=== PATIENT | female | born 1940 | race Caucasian/White ===

== ENCOUNTER 2019-11-14 19:46 | Inpatient (IN) | payer MEDICARE, OTHER ==
[2019-11-14] MEDS ORDERED: SODIUM CHLORIDE 0.9% 1,000 ML IV STA (20:24)
--- NOTE | 2019-11-14 20:47 | ED ---
General Adult HPI - General Source: patient, EMS, RN notes reviewed Mode of arrival: EMS <Ernesto Deluca P - Last Filed: 11/14/19 21:39> <Jeny Berkowitz P - Last Filed: 11/16/19 04:45> - General Chief complaint: Recheck/Abnormal Lab/Rx Stated complaint: abnormal labs Time Seen by Provider: 11/14/19 19:55 - History of Present Illness Initial comments: 79-year-old female with a past medical history of diabetes, hypertension, polio presents to the emergency department for a chief complaint of abnormal labs. Patient states that she was called by primary care and told to call the ambulance due to abnormal labs. Patient states she has had cellulitis and swelling of her leg and was on Lasix about 2 weeks ago. States she's had this for one week and then was told to stop taking this. States she has not taken this in a week. States that her kidney function has been decreasing as it is normally around a GFR of 43. Patient states today she had repeat labs performed and she was told she had high potassium. Patient has not had this in the past. She has no complaints at this time.Patient has no other complaints at this time including shortness of breath, chest pain, abdominal pain, nausea or vomiting, headache, or visual changes. (Ernesto Deluca) - Related Data Home Medications Medication Instructions Recorded Confirmed Aspirin 81 mg PO DAILY 06/25/15 11/14/19 Fish Oil/Dha/Epa [Fish Oil 1,200 1 cap PO DAILY 06/25/15 11/14/19 mg Fish Oil] Indapamide 5 mg PO DAILY 06/25/15 11/14/19 Levothyroxine Sodium [Synthroid] 125 mcg PO DAILY 06/25/15 11/14/19 Lisinopril [Prinivil] 10 mg PO DAILY 06/25/15 11/14/19 Potassium Chloride [K-Tab ER] 10 meq PO DAILY 06/25/15 11/14/19 glipiZIDE XL [Glucotrol XL] 5 mg PO AC-BRKFST 06/25/15 11/14/19 Cholecalciferol [Vitamin D3 (25 1,000 unit PO DAILY 06/23/16 11/14/19 Mcg = 1000 Iu)] Allopurinol [Zyloprim] 100 mg PO DAILY 11/14/19 11/14/19 Sulfamethox-Tmp 800-160Mg [Bactrim 1 tab PO Q12HR 11/15/19 11/15/19 DS 800-160 mg] Allergies Allergy/AdvReac Type Severity Reaction Status Date / Time No Known Allergies Allergy Verified 11/14/19 23:14 Review of Systems ROS Other: All systems not noted in ROS Statement are negative. <Ernesto Deluca P - Last Filed: 11/14/19 21:39> ROS Other: All systems not noted in ROS Statement are negative. <Jeny Berkowitz P - Last Filed: 11/16/19 04:45> ROS Statement: Those systems with pertinent positive or pertinent negative responses have been documented in the HPI. Past Medical History Past Medical History: Diabetes Mellitus, Hypertension, Thyroid Disorder Additional Past Medical History / Comment(s): POLIO AT AGE 3 with R leg alittle shorter and smaller, NIDDM, hypothyroid, L hip pain at times. History of Any Multi-Drug Resistant Organisms: None Reported Past Surgical History: No Surgical Hx Reported Additional Past Surgical History / Comment(s): RT/LT CATARACT removal. Additional Past Anesthesia/Blood Transfusion Reaction / Comment(s): NEVER HAS HAD GENERAL ANESTHESIA Past Psychological History: No Psychological Hx Reported Smoking Status: Former smoker Past Alcohol Use History: None Reported Past Drug Use History: None Reported - Past Family History Father Family Medical History: Coronary Artery Disease (CAD), Myocardial Infarction ([place]) Additional Family Medical History / Comment(s): Father at the age of 63 yrs from a [place]. He had alot of family members with CAD. Mother Family Medical History: No Reported History Additional Family Medical History / Comment(s): Mother lived to be 90.5 yrs old. <Ernesto Deluca P - Last Filed: 11/14/19 21:39> General Exam General appearance: alert, in no apparent distress Head exam: Present: atraumatic, normocephalic, normal inspection Eye exam: Present: normal appearance, PERRL, EOMI. Absent: scleral icterus, conjunctival injection ENT exam: Present: normal exam, mucous membranes moist Neck exam: Present: normal inspection, full ROM. Absent: tenderness, meningismus, lymphadenopathy Respiratory exam: Present: normal lung sounds bilaterally. Absent: respiratory distress, wheezes, rales, rhonchi, stridor Cardiovascular Exam: Present: regular rate, normal rhythm, normal heart sounds. Absent: bradycardia, tachycardia, irregular rhythm GI/Abdominal exam: Present: soft, normal bowel sounds. Absent: distended, tenderness, guarding, rebound, rigid <Ernesto Deluca - Last Filed: 11/14/19 21:39> Course Vital Signs 11/14/19 11/14/19 19:53 20:52 Temperature 98 F Pulse Rate 95 71 Respiratory 18 18 Rate Blood Pressure 189/84 164/60 O2 Sat by Pulse 98 97 Oximetry EKG Findings - EKG Comments: EKG Findings:: Normal sinus rhythm, left bundle branch block, ventricular rate 84, CO interval 176, QTc 467 <Ernesto Deluca P - Last Filed: 11/14/19 21:39> Medical Decision Making - Lab Data Result diagrams: 11/14/19 20:45 11/14/19 20:45 <Ernesto Deluca - Last Filed: 11/14/19 21:39> - Lab Data Result diagrams: 11/15/19 07:49 11/15/19 17:18 <Jeny Berkowitz P - Last Filed: 11/16/19 04:45> - Medical Decision Making Potassium is elevated at 6.1. BUN to creatinine ratio is noted to be 24, some degree of prerenal involvement. EKG shows a left bundle-branch block which is likely chronic patient does not have any chest pain or shortness of breath. However I do not have a previous EKG to compare this to. Patient was given insulin with dextrose, sodium bicarb, calcium gluconate, and albuterol. She was also given fluids. At this time we recommend fruther monitoring in the hospital and repeating her potassium in the morning. (Ernesto Deluca) I personally saw and evaluated the patient and agree with the [facility]'s plan for admission, acute treatment for hyperkalemia and repeat labs in the morning (Jeny Berkowitz) - Lab Data Lab Results 11/14/19 11/14/19 Range/Units 20:45 20:45 WBC 10.2 (3.8-10.6) k/uL RBC 3.96 (3.80-5.40) m/uL Hgb 12.0 (11.4-16.0) gm/dL Hct 36.8 (34.0-46.0) % MCV 92.9 (80.0-100.0) fL MCH 30.4 (25.0-35.0) pg MCHC 32.8 (31.0-37.0) g/dL RDW 14.3 (11.5-15.5) % Plt Count 215 (150-450) k/uL Neutrophils % 85 % Lymphocytes % 8 % Monocytes % 5 % Eosinophils % 1 % Basophils % 0 % Neutrophils # 8.7 H (1.3-7.7) k/uL Lymphocytes # 0.8 L (1.0-4.8) k/uL Monocytes # 0.5 (0-1.0) k/uL Eosinophils # 0.1 (0-0.7) k/uL Basophils # 0.0 (0-0.2) k/uL Sodium 138 (137-145) mmol/L Potassium 6.1 H* (3.5-5.1) mmol/L Chloride 106 (98-107) mmol/L Carbon Dioxide 21 L (22-30) mmol/L Anion Gap 11 mmol/L BUN 41 H (7-17) mg/dL Creatinine 1.70 H (0.52-1.04) mg/dL Est GFR (CKD-EPI)AfAm 32 (>60 ml/min/1.73 sqM) Est GFR (CKD-EPI)NonAf 28 (>60 ml/min/1.73 sqM) Glucose 140 H (74-99) mg/dL Calcium 10.0 (8.4-10.2) mg/dL Magnesium 1.8 (1.6-2.3) mg/dL Total Bilirubin 0.4 (0.2-1.3) mg/dL AST 35 (14-36) U/L ALT 27 (4-34) U/L Alkaline Phosphatase 70 (38-126) U/L Total Protein 7.7 (6.3-8.2) g/dL Albumin 4.6 (3.5-5.0) g/dL Disposition Is patient prescribed a controlled substance at d/c from ED?: No Time of Disposition: 21:40 <Ernesto Deluca P - Last Filed: 11/14/19 21:39> <Jeny Berkowitz - Last Filed: 11/16/19 04:45> Clinical Impression: Hyperkalemia, Dehydration Disposition: ADMITTED IP TO THIS HOSP Condition: Fair
[2019-11-14 20:51] LABS: Basophils % (A) 0 %; Eosinophils # (A) 0.1 k/uL (0-0.7); Eosinophils % (A) 1 %; HCT 36.8 % (34.0-46.0); Lymphocytes # (A) 0.8 k/uL (1.0-4.8); Lymphocytes % (A) 8 %; MCH 30.4 pg (25.0-35.0); MCHC 32.8 g/dL (31.0-37.0); MCV 92.9 fL (80.0-100.0); Mean Platelet Volume 7.2; Monocytes # (A) 0.5 k/uL (0-1.0); Monocytes % (A) 5 %; Neutrophils # (A) 8.7 k/uL (1.3-7.7); Neutrophils % (A) 85 %; Platelet Count 215 k/uL (150-450); RBC 3.96 m/uL (3.80-5.40); RDW 14.3 % (11.5-15.5); WBC 10.2 k/uL (3.8-10.6)
[2019-11-14 21:05] LABS: Albumin 4.6 g/dL (3.5-5.0); Magnesium 1.8 mg/dL (1.6-2.3); Total Bilirubin 0.4 mg/dL (0.2-1.3); Total Protein 7.7 g/dL (6.3-8.2)
[2019-11-14 21:07] LABS: Potassium 6.1 mmol/L (3.5-5.1)
[2019-11-14] MEDS ORDERED: ALBUTEROL NEB (CONC) 2.5 MG/0.5 ML INHALATION ONE (21:17)
[2019-11-14] MEDS ORDERED: CALCIUM GLUCONATE 1 GM in SODIUM CHLORIDE 0.9% 100 ML IVPB ONE (21:17)
[2019-11-14] MEDS ORDERED: INSULIN REGULAR 100 UNIT/ML VIAL IV ONE (21:17)
[2019-11-14] MEDS ORDERED: DEXTROSE 10 % IN WATER 250 ML IV ONE (21:17)
[2019-11-14] MEDS ORDERED: SODIUM BICARB 8.4% 50 ML SYR (1 MEQ/ML) IV ONE (21:17)
[2019-11-14] MEDS ORDERED: NALOXONE 0.4 MG/ML 1 ML VIAL IV PRN (21:26)
[2019-11-14] MEDS: SODIUM CHLORIDE 0.9% 1,000 ML IV SCH (21:53)
[2019-11-14 22:16] LABS: Glucose,Whole Blood 238 mg/dL (75-99)
[2019-11-15] MEDS ORDERED: ACETAMINOPHEN TAB 325 MG TAB PO PRN (00:55)
[2019-11-15] MEDS: LEVOTHYROXINE 125 MCG TAB PO SCH (06:14)
[2019-11-15 07:06] LABS: Glucose,Whole Blood 116 mg/dL (75-99)
[2019-11-15 08:30] LABS: Basophils % (A) 0 %; Eosinophils # (A) 0.1 k/uL (0-0.7); Eosinophils % (A) 1 %; HCT 33.7 % (34.0-46.0); HGB 11.2 gm/dL (11.4-16.0); Lymphocytes # (A) 0.9 k/uL (1.0-4.8); Lymphocytes % (A) 12 %; MCH 31.2 pg (25.0-35.0); MCHC 33.2 g/dL (31.0-37.0); Mean Platelet Volume 7.3; Monocytes # (A) 0.5 k/uL (0-1.0); Monocytes % (A) 6 %; Neutrophils # (A) 5.9 k/uL (1.3-7.7); Neutrophils % (A) 79 %; Platelet Count 191 k/uL (150-450); RBC 3.58 m/uL (3.80-5.40); RDW 14.3 % (11.5-15.5); WBC 7.5 k/uL (3.8-10.6)
[2019-11-15 08:51] LABS: Albumin 4.1 g/dL (3.5-5.0); Calcium 9.6 mg/dL (8.4-10.2); Magnesium 1.6 mg/dL (1.6-2.3); Potassium 5.5 mmol/L (3.5-5.1); Total Bilirubin 0.5 mg/dL (0.2-1.3); Total Protein 6.9 g/dL (6.3-8.2)
[2019-11-15] MEDS ORDERED: LISINOPRIL 10 MG TAB PO SCH (09:00)
[2019-11-15] MEDS: INSULIN ASPART (NovoLOG) 100 UNIT/ML VIAL SQ SCH ×4 (09:19→20:37)
[2019-11-15] MEDS: CHOLECALCIFEROL 1,000 UNIT TAB PO SCH (09:32)
[2019-11-15] MEDS: ALLOPURINOL 100 MG TAB PO SCH (09:32)
[2019-11-15] MEDS: ASPIRIN 81 MG PO SCH (09:32)
[2019-11-15] MEDS: HYDROCHLOROTHIAZIDE 25 MG TAB PO SCH (09:32)
[2019-11-15] MEDS: SODIUM CHLORIDE 0.9% 1,000 ML IV SCH (09:33)
[2019-11-15] MEDS ORDERED: SODIUM POLYSTYRENE SULFONATE 15 GM/60 ML BOTTLE PO STA (11:35)
[2019-11-15] MEDS ORDERED: Magnesium Replacement Protocol 1 EACH MISC MISCELLANE PRN (11:36)
[2019-11-15 11:44] LABS: Glucose,Whole Blood 125 mg/dL (75-99)
[2019-11-15] MEDS: MAGNESIUM SULFATE-D5W PMX 1 GM in DEXTROSE/WATER 1 100ML.BAG IVPB SCH ×2 (13:41→16:10)
--- NOTE | 2019-11-15 16:42 | XR ---
EXAMINATION TYPE: XR chest 1V portable DATE OF EXAM: 11/15/2019 Comparison: 09/21/2010 Clinical History: 79-year-old female CHF Findings: Heart borderline enlarged. Lordotic positioning limits exam. Mild interstitial prominence without con solidation or pleural effusion. Impression: 1. Borderline heart size. Lordotic positioning limits assessment. 2. Mild interstitial prominence could affect mild pulmonary vascular congestion.
[2019-11-15 16:45] LABS: Glucose,Whole Blood 118 mg/dL (75-99)
[2019-11-15 17:58] LABS: Albumin 4.5 g/dL (3.5-5.0); Calcium 9.8 mg/dL (8.4-10.2); Potassium 5.5 mmol/L (3.5-5.1); Total Bilirubin 0.5 mg/dL (0.2-1.3); Total Protein 7.3 g/dL (6.3-8.2)
--- NOTE | 2019-11-15 18:56 | HP ---
HISTORY AND PHYSICAL CHIEF COMPLAINT: Abnormal labs. HISTORY OF PRESENT ILLNESS: This 79-year-old woman with a past medical history of multiple medical problems being followed by Dr. Hays in the outpatient presented to [facility] with complaints of abnormal labs. The patient apparently had an ulcer on the right lower leg, initially started as blister. The patient was treated with oral antibiotics. The patient also had also had swelling of the leg. The patient was on Lasix about 2 weeks ago. Because of lack of improvement the patient was closely monitored. Patient had outpatient labs. Subsequently, patient was asked to go to [facility] Emergency room for continued labs. Potassium 6.1, creatinine is 1.70. The baseline creatinine was found to be 0.9 indicating acute renal failure. The patient was given insulin ( ) patient admitted for further evaluation and treatment. Repeat potassium was 5.4. Repeat creatinine was 1.4. There is no history of fever, rigors. No diabetes. No headache, loss of consciousness, chest pain, palpitations, hematochezia or melena. PAST HISTORY: Diabetes mellitus, hypertension, hypothyroidism, history of polio. HOME MEDICATIONS: 1. Bactrim DS 1 p.o. b.i.d. 2. Glucotrol XL 5 mg at breakfast. 3. K-Tab ER 10 mg p.o. 4. Prinivil 10 mg. 5. Synthroid 125 mcg p.o. daily. 6. Indapamide 5 mg p.o. 7. Fish oil 1 p.o. 8. Vitamin D3 1000 daily. 9. Aspirin 81 mg. 10.Zyloprim 100 mg p.o. daily. ALLERGIES: None. FAMILY HISTORY: No history of significant cardiovascular illness in the family. SOCIAL HISTORY: History of smoking. No history of current smoking or alcohol intake. REVIEW OF SYSTEMS: ENT: No history of diminished hearing or vision. CARDIOVASCULAR: No angina or palpitations. RESPIRATORY: As mentioned earlier. GI: No nausea, vomiting, or diarrhea. : No dysuria. NERVOUS: No numbness or weakness. ALLERGY/IMMUNOLOGY: No asthma or hayfever. MUSCULOSKELETAL: As mentioned earlier. HEMATOLOGY/ONCOLOGY: Negative. ENDOCRINE: Hypothyroidism. SKIN: Negative. CONSTITUTIONAL: Negative. PSYCHIATRY As mentioned earlier. PHYSICAL EXAMINATION: Alert and oriented x3. Pulse 82, blood pressure 140/82, respirations 16, temperature 98.1, pulse ox 98% on room air. HEENT: Conjunctivae normal. Oral mucosa moist. NECK: No jugular venous distention. No lymph node enlargement. CARDIOVASCULAR: S1, S2. RESPIRATORY: Diminished breath sounds at the bases. A few scattered rhonchi and crackles. ABDOMEN: Soft, nontender. LEGS: Right leg swelling present. Right leg ulceration also present on the middle part of the leg. NERVOUS SYSTEM: Higher functions mentioned earlier. Moves all four limbs. No focal deficits. LYMPHATICS: No lymph node in neck or axilla. SKIN: As mentioned earlier. JOINTS: No active deforming arthropathy. LABS: WBC 7.2, hemoglobin 11.2, sodium 130, potassium 5.2, creatinine is 1.4. ASSESSMENT: 1. Acute renal failure and acute hyperkalemia, possibly prerenal renal failure, acute tubular necrosis. 2. Anemia, normocytic anemia of chronic disease. 3. Right lower extremity ulcer. 4. History of diabetes type 2. 5. Hypertension. 6. Hypothyroidism. 7. History of polio at the age of 3. 8. Left hip pain. 9. History of degenerative joint disease. 10.Remote history of nicotine dependence. 11.Obesity with body mass of 30.1. 12.FULL CODE. RECOMMENDATIONS AND DISCUSSION: This 79-year-old woman who presented with multiple complex medical issues, we will monitor the patient closely, continue the current medication, continue symptomatic treatment. Will initiate insulin glucose regimen as mentioned earlier. We will recommend Kayexalate. Hold potassium. Hold lisinopril. Otherwise, continue to monitor. Cautious IV fluids. Will consult Infectious Disease and continue to monitor. Overall prognosis guarded because of multiple complex medical issues. See orders for details. MMODL / IJN: [id number] /
[2019-11-15 19:24] LABS: Appearance,Urine Clear (Clear); Bilirubin,Urine Negative (Negative); Blood,Urine Negative (Negative); Color,Urine Colorless; Glucose,Urine (UA) Negative (Negative); Ketones,Urine Negative (Negative); Leukocyte Esterase,Urine Negative (Negative); Nitrite,Urine Negative (Negative); Protein,Urine Negative (Negative); Specific Gravity,Urine 1.005 (1.001-1.035); Urobilinogen,Urine <2.0 mg/dL (<2.0)
[2019-11-15 20:25] LABS: Glucose,Whole Blood 169 mg/dL (75-99)
--- NOTE | 2019-11-15 21:56 | US ---
EXAMINATION TYPE: US venous doppler duplex LE RT DATE OF EXAM: 11/15/2019 11:59 AM COMPARISON: NONE CLINICAL HISTORY: chronic cellulits. . Draining blister right lower leg, edema SIDE PERFORMED: Right TECHNIQUE: The lower extremity deep venous system is examined utilizing real time linear array sonog jameson with graded compression, doppler sonography and color-flow sonography. VESSELS IMAGED: External Iliac Vein (EIV) Common Femoral Vein Deep Femoral Vein Greater Saphenous Vein * Femoral Vein Popliteal Vein Small Saphenous Vein * Proximal Calf Veins (* superficial vessels) Exam somewhat difficult due to edema Right Leg: Negative for DVT IMPRESSION: There is no evidence of deep venous thrombosis in the right leg.
[2019-11-16] MEDS: SODIUM CHLORIDE 0.9% 1,000 ML IV SCH ×2 (00:35→12:59)
[2019-11-16] MEDS: LEVOTHYROXINE 125 MCG TAB PO SCH (05:33)
[2019-11-16 07:04] LABS: Glucose,Whole Blood 104 mg/dL (75-99)
[2019-11-16 08:01] LABS: Basophils % (A) 0 %; Eosinophils # (A) 0.1 k/uL (0-0.7); Eosinophils % (A) 2 %; HCT 34.2 % (34.0-46.0); HGB 10.9 gm/dL (11.4-16.0); Lymphocytes % (A) 13 %; MCH 30.1 pg (25.0-35.0); MCHC 31.9 g/dL (31.0-37.0); MCV 94.5 fL (80.0-100.0); Mean Platelet Volume 7.3; Monocytes # (A) 0.5 k/uL (0-1.0); Monocytes % (A) 6 %; Neutrophils % (A) 77 %; Platelet Count 180 k/uL (150-450); RBC 3.62 m/uL (3.80-5.40); RDW 14.5 % (11.5-15.5); WBC 7.8 k/uL (3.8-10.6)
[2019-11-16] MEDS: INSULIN ASPART (NovoLOG) 100 UNIT/ML VIAL SQ SCH ×4 (08:31→20:53)
[2019-11-16 08:35] LABS: Calcium 9.5 mg/dL (8.4-10.2); Potassium 5.3 mmol/L (3.5-5.1)
[2019-11-16] MEDS: ASPIRIN 81 MG PO SCH (09:22)
[2019-11-16] MEDS: CHOLECALCIFEROL 1,000 UNIT TAB PO SCH (09:22)
[2019-11-16] MEDS: ALLOPURINOL 100 MG TAB PO SCH (09:22)
[2019-11-16] MEDS: HYDROCHLOROTHIAZIDE 25 MG TAB PO SCH (09:22)
[2019-11-16 11:31] LABS: Glucose,Whole Blood 88 mg/dL (75-99)
--- NOTE | 2019-11-16 13:39 | P.CONS ---
History of Present Illness - Reason for Consult Consult date: 11/16/19 right lower extremity wound and cellulitis Requesting physician: Angelica Last - Chief Complaint abnormal labs at PCP office and right leg wound few days - History of Present Illness Patient is 79 year female who has been brought into the ER after the primary care told her that she did have abnormal labs and that she needs to go to the hospital apparently the patient had did have problem with the swelling in her legs on the right leg the patient did develop a blister more than a week ago they subsequently ruptured with subsequent formation of a superficial laceration the patient did have mild aching pain to the area about 2-3 out of 10 and no radiation patient mentioning nose difficulty and redness and the drainage was mostly clear and denies having any fever or any chills patient has been treated with Bactrim DS in outpatient setting the patient to did went for a follow-up and the patient apparently did have blood work done subsequently receiving a call that she did have elevated progression and can function was elevated to present to the hospital for admission, on admission the patient did have blood draw she was noticed a potassium of 6.1 with a creatinine 1.70, the patient white count has been normal and she has not been running any fever and infection disease was consulted for possible right lower extremity cellulitis for local wound care and need for antibiotic therapy currently not on any antibiotic at this point Review of Systems Positive point has been mentioned in the HPI rest of the systems are negative Past Medical History Past Medical History: Diabetes Mellitus, Hypertension, Thyroid Disorder Additional Past Medical History / Comment(s): POLIO AT AGE 3 with R leg alittle shorter and smaller, NIDDM, hypothyroid, L hip pain at times. History of Any Multi-Drug Resistant Organisms: None Reported Past Surgical History: No Surgical Hx Reported Additional Past Surgical History / Comment(s): RT/LT CATARACT removal. Additional Past Anesthesia/Blood Transfusion Reaction / Comm: NEVER HAS HAD GENERAL ANESTHESIA Past Psychological History: No Psychological Hx Reported Additional Psychological History / Comment(s): Pt resides alone, her 10/30/19. She uses a cane when out and about. 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 She drives. 2 adult children. No international travel. No experience. Smoked limited amount of time as a youth. No severe alcohol or recreational drug use. No animal exposures. No change in home environment Smoking Status: Former smoker Past Alcohol Use History: None Reported Additional Past Alcohol Use History / Comment(s): QUIT SMOKING 1993 ON AND OFF SOCIALLY SINCE 1958 Past Drug Use History: None Reported - Past Family History Father Family Medical History: Coronary Artery Disease (CAD), Myocardial Infarction ([place]) Additional Family Medical History / Comment(s): Father at the age of 63 yrs from a [place]. He had alot of family members with CAD. Mother Family Medical History: No Reported History Additional Family Medical History / Comment(s): Mother lived to be 90.5 yrs old. Medications and Allergies Home Medications Medication Instructions Recorded Confirmed Type Aspirin 81 mg PO DAILY 06/25/15 11/14/19 History Fish Oil/Dha/Epa [Fish Oil 1,200 1 cap PO DAILY 06/25/15 11/14/19 History mg Fish Oil] Indapamide 5 mg PO DAILY 06/25/15 11/14/19 History Levothyroxine Sodium [Synthroid] 125 mcg PO DAILY 06/25/15 11/14/19 History Lisinopril [Prinivil] 10 mg PO DAILY 06/25/15 11/14/19 History Potassium Chloride [K-Tab ER] 10 meq PO DAILY 06/25/15 11/14/19 History glipiZIDE XL [Glucotrol XL] 5 mg PO AC-BRKFST 06/25/15 11/14/19 History Cholecalciferol [Vitamin D3 (25 1,000 unit PO DAILY 06/23/16 11/14/19 History Mcg = 1000 Iu)] Allopurinol [Zyloprim] 100 mg PO DAILY 11/14/19 11/14/19 History Sulfamethox-Tmp 800-160Mg [Bactrim 1 tab PO Q12HR 11/15/19 11/15/19 History DS 800-160 mg] Allergies Allergy/AdvReac Type Severity Reaction Status Date / Time No Known Allergies Allergy Verified 11/14/19 23:14 Physical Exam Vitals: Vital Signs Temp Pulse Resp BP Pulse Ox 11/16/19 07:00 149/69 11/16/19 06:20 97.7 F 91 20 182/71 96 11/15/19 22:21 95 112/65 11/15/19 20:15 98.2 F 103 H 22 170/72 95 Intake and Output 11/15/19 11/16/19 11/16/19 22:59 06:59 14:59 Other: Voiding Method Toilet # Voids 2 GENERAL DESCRIPTION: An elderly female up in the chair, no distress. No tachypnea or accessory muscle of respiration use. HEENT: Shows Pallor , no scleral icterus. Oral mucous membrane is dry. No pharyngeal erythema or thrush NECK: Trachea central, no thyromegaly. LUNGS: Unlabored breathing. Clear to auscultation anteriorly. No wheeze or crackle. HEART: S1, S2, regular rate and rhythm. No loud murmur ABDOMEN: Soft, no tenderness , guarding or rigidity, no organomegaly EXTREMITIES: Bilateral leg with 2+ swelling right more than left the patient did have superficial ulceration at the right medial lower leg area with some clear drainage no purulence no redness or foul-smelling. SKIN: No rash, no masses palpable. NEUROLOGICAL: The patient is awake, alert, oriented x3, mood and affect normal. Results CBC & Chem 7: 11/16/19 07:31 11/16/19 07:31 Labs: Abnormal Lab Results - Last 24 Hours (Table) 11/15/19 11/15/19 11/15/19 Range/Units 16:43 17:18 20:24 RBC (3.80-5.40) m/uL Hgb (11.4-16.0) gm/dL Potassium 5.5 H (3.5-5.1) mmol/L BUN 33 H (7-17) mg/dL Creatinine 1.93 H (0.52-1.04) mg/dL Glucose 125 H (74-99) mg/dL POC Glucose (mg/dL) 118 H 169 H (75-99) mg/dL 11/16/19 11/16/19 11/16/19 Range/Units 07:00 07:31 07:31 RBC 3.62 L (3.80-5.40) m/uL Hgb 10.9 L (11.4-16.0) gm/dL Potassium 5.3 H (3.5-5.1) mmol/L BUN 34 H (7-17) mg/dL Creatinine 1.56 H (0.52-1.04) mg/dL Glucose 113 H (74-99) mg/dL POC Glucose (mg/dL) 104 H (75-99) mg/dL Assessment and Plan Assessment: 1-patient with right lower symmetry wound from ruptured blister in this patient did have evidence of fluid overload currently with no signs and symptoms of secondary bacterial infection in this patient with no fever or elevated white count 2-patient admitted hospital with hyperkalemia and elevated creatinine more li akhil secondary to Bactrim DS which has been discontinued (1) Leg wound, right Current Visit: Yes Status: Acute Code(s): S81.801A - UNSPECIFIED OPEN WOUND, RIGHT LOWER LEG, INITIAL ENCOUNTER SNOMED Code(s): 728437701 Plan: 1-local wound care with dry Aquacel silver dressing followed by Mike wrap from just above the toe to below the knee to be changed daily 2-no need for systemic antibiotic therapy We will follow on clinical condition and cultures to further adjust medication if needed Thank you for this consultation will follow this patient with you Time with Patient: Greater than 30
[2019-11-16 16:42] LABS: Glucose,Whole Blood 106 mg/dL (75-99)
--- NOTE | 2019-11-16 19:17 | PN ---
PROGRESS NOTE DATE OF SERVICE: 11/16/2019 This 79-year-old woman admitted with abnormal labs and elevated potassium, also had significant ulceration of the right leg. Dr. Prather is following the patient closely. No chest pain. No palpitations. No fever. The cultures are negative so far. Local wound care has been suggested at this time. The patient also had a chest x-ray which was personally reviewed by me. REVIEW OF SYSTEMS: CARDIOVASCULAR: As mentioned earlier. RESPIRATORY: As mentioned earlier. GI: No nausea. : No dysuria or retention. NERVOUS SYSTEM: No numbness or weakness. CURRENT MEDICATIONS: Reviewed Tylenol p.r.n. Zyloprim, aspirin, vitamin D3, Glucotrol, HydroDIURIL, NovoLog, Synthroid, magnesium, Narcan. Doses reviewed. The chest x-ray showed some increased bronchovascular markings. EXAM: Alert and oriented x3. Pulse is 79, blood pressure 150/60, respiration 18, temperature 97.7, pulse ox 98% on room air. HEENT: Conjunctivae normal. Oral mucosa moist. NECK: No jugular venous distention. No lymph node enlargement. CARDIOVASCULAR: S1, S2. RESPIRATORY: Diminished breath sounds at the bases. No rhonchi, no crackles. ABDOMEN: Soft, nontender. LEGS: Right leg ulcer present. NERVOUS SYSTEM: No focal deficits. LABS: WBC 7.2, hemoglobin 10.2, sodium 139, potassium 5.3, creatinine is 1.56. ASSESSMENT: 1. Acute renal failure with acute hyperkalemia, possibly prerenal renal failure, acute tubular necrosis. 2. Anemia, normocytic anemia of chronic disease. 3. Right lower extremity ulcer. 4. Diabetes mellitus type 2. 5. Hypertension. 6. Hypothyroidism. 7. Left axis deviation and left bundle branch block on EKG. 8. History of polio at the age of 3. 9. Left hip pain. 10.History of degenerative joint disease. 11.Remote history of nicotine dependence. 12.Obesity with body mass index of 30.1. 13.FULL CODE. please also history the patient also had a chest x-ray which was personally reviewed by me showed some is also had reviewed. RECOMMENDATIONS AND DISCUSSION: In this 79-year-old woman who presented with multiple complex medical issues, we will monitor the patient closely, continue the current medication, continue symptomatic treatment. I would stop the IV fluids, check a BNP and a 2D echo with Doppler. Continue the antibiotics and nephrology consultation. Guarded prognosis because of multiple complex medical issues. I would also obtain a set of troponins as well to complete the cardiac workup. EKG showed wide complex QRS, left bundle branch block, left axis deviation. See orders for details. MMODL / IJN: [id number] /
[2019-11-16 20:50] LABS: Glucose,Whole Blood 156 mg/dL (75-99)
[2019-11-17] MEDS: LEVOTHYROXINE 125 MCG TAB PO SCH (05:47)
[2019-11-17 06:16] LABS: Basophils % (A) 0 %; Eosinophils # (A) 0.2 k/uL (0-0.7); Eosinophils % (A) 3 %; HCT 33.5 % (34.0-46.0); HGB 11.4 gm/dL (11.4-16.0); Lymphocytes # (A) 1.2 k/uL (1.0-4.8); Lymphocytes % (A) 19 %; MCH 31.8 pg (25.0-35.0); MCHC 33.9 g/dL (31.0-37.0); MCV 93.8 fL (80.0-100.0); Mean Platelet Volume 7.7; Monocytes # (A) 0.4 k/uL (0-1.0); Monocytes % (A) 7 %; Neutrophils # (A) 4.4 k/uL (1.3-7.7); Neutrophils % (A) 69 %; Platelet Count 181 k/uL (150-450); RBC 3.57 m/uL (3.80-5.40); RDW 14.5 % (11.5-15.5); WBC 6.3 k/uL (3.8-10.6)
[2019-11-17 06:26] LABS: Calcium 9.4 mg/dL (8.4-10.2); Potassium 4.6 mmol/L (3.5-5.1)
[2019-11-17 07:01] LABS: Glucose,Whole Blood 111 mg/dL (75-99)
[2019-11-17] MEDS: INSULIN ASPART (NovoLOG) 100 UNIT/ML VIAL SQ SCH ×4 (08:25→21:03)
[2019-11-17] MEDS: ALLOPURINOL 100 MG TAB PO SCH (09:05)
[2019-11-17] MEDS: ASPIRIN 81 MG PO SCH (09:05)
[2019-11-17] MEDS: CHOLECALCIFEROL 1,000 UNIT TAB PO SCH (09:05)
[2019-11-17] MEDS: HYDROCHLOROTHIAZIDE 25 MG TAB PO SCH (09:06)
--- NOTE | 2019-11-17 10:01 | P.NPCON ---
History of Present Illness - Reason for Consult acute renal failure - History of Present Illness Reason for consultation: Acute kidney injury History of present illness: Patient is a 79-year-old female seen in renal consultation for acute kidney injury. Patient presented to the hospital on 11/14/2019. Patient states she had blood work an outpatient and was advised to go to the hospital. At the time of admission, her creatinine was 1.7. Patient states she has cellulitis in her lower extremity. Initially she was seen at an urgent care and was started on Lasix. She has been off Lasix now for about 2 weeks. Patient states her kidney function is worsened with the Lasix was stopped. Patient was then started on Bactrim that she took for about 5 days prior to admission. Oral intake is good. No nausea vomiting or diarrhea. Denies chest pain or shortness of breath. No hematuria or dysuria. She does have history of diabetes mellitus. Denies any family history of kidney disease. Patient denies any personal history of kidney disease. Denies regular use of nonsteroidals. She is currently not on IV fluids. Renal function has been gradually improving. Creatinine is down to 1.23 today. Vital signs are stable. General: The patient appeared well nourished and normally developed. HEENT: Head exam is unremarkable. Neck is without jugular venous distension. LUNGS: Lungs are clear to auscultation and percussion. Breath sounds decreased. HEART: Rate and Rhythm are regular. First and second heart sounds normal. No murmurs, rubs or gallops. ABDOMEN: Abdominal exam reveals normal bowel sounds. Non-tender and non- distended. No evidence of peritonitis. EXTREMITITES: No clubbing, cyanosis, or edema. Right lower extremity wrapped. No obvious drainage. Past Medical History Past Medical History: Diabetes Mellitus, Hypertension, Thyroid Disorder Additional Past Medical History / Comment(s): POLIO AT AGE 3 with R leg alittle shorter and smaller, NIDDM, hypothyroid, L hip pain at times. History of Any Multi-Drug Resistant Organisms: None Reported Past Surgical History: No Surgical Hx Reported Additional Past Surgical History / Comment(s): RT/LT CATARACT removal. Additional Past Anesthesia/Blood Transfusion Reaction / Comment(s): NEVER HAS HAD GENERAL ANESTHESIA Past Psychological History: No Psychological Hx Reported Additional Psychological History / Comment(s): Pt resides alone, her 10/30/19. She uses a cane when out and about. 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 She drives. 2 adult children. No international travel. No experience. Smoked limited amount of time as a youth. No severe alcohol or recreational drug use. No animal exposures. No change in home environment Smoking Status: Former smoker Past Alcohol Use History: None Reported Additional Past Alcohol Use History / Comment(s): QUIT SMOKING 1993 ON AND OFF SOCIALLY SINCE 1958 Past Drug Use History: None Reported - Past Family History Father Family Medical History: Coronary Artery Disease (CAD), Myocardial Infarction (IN) Additional Family Medical History / Comment(s): Father at the age of 63 yrs from a [place]. He had alot of family members with CAD. Mother Family Medical History: No Reported History Additional Family Medical History / Comment(s): Mother lived to be 90.5 yrs old. Medications and Allergies Home Medications Medication Instructions Recorded Confirmed Type Aspirin 81 mg PO DAILY 06/25/15 11/14/19 History Fish Oil/Dha/Epa [Fish Oil 1,200 1 cap PO DAILY 06/25/15 11/14/19 History mg Fish Oil] Indapamide 5 mg PO DAILY 06/25/15 11/14/19 History Levothyroxine Sodium [Synthroid] 125 mcg PO DAILY 06/25/15 11/14/19 History Lisinopril [Prinivil] 10 mg PO DAILY 06/25/15 11/14/19 History Potassium Chloride [K-Tab ER] 10 meq PO DAILY 06/25/15 11/14/19 History glipiZIDE XL [Glucotrol XL] 5 mg PO AC-BRKFST 06/25/15 11/14/19 History Cholecalciferol [Vitamin D3 (25 1,000 unit PO DAILY 06/23/16 11/14/19 History Mcg = 1000 Iu)] Allopurinol [Zyloprim] 100 mg PO DAILY 11/14/19 11/14/19 History Sulfamethox-Tmp 800-160Mg [Bactrim 1 tab PO Q12HR 11/15/19 11/15/19 History DS 800-160 mg] Allergies Allergy/AdvReac Type Severity Reaction Status Date / Time No Known Allergies Allergy Verified 11/14/19 23:14 Physical Exam Vitals: Vital Signs Temp Pulse Resp BP Pulse Ox 11/17/19 05:00 96.9 F L 65 18 135/66 97 11/16/19 21:00 97.0 F L 89 20 156/73 98 11/16/19 12:18 97.7 F 79 18 154/65 99 Intake and Output 11/16/19 11/17/19 11/17/19 22:59 06:59 14:59 Intake Total 0 Balance 0 Intake: Oral 0 Other: # Voids 1 2 Results - Lab Results Most recent lab results Calcium 9.4 mg/dL (8.4-10.2) 11/17/19 05:30 Magnesium 2.0 mg/dL (1.6-2.3) 11/16/19 07:31 11/17/19 05:30 11/17/19 05:30 Assessment and Plan Plan: Assessment: 1. Acute kidney injury secondary to Bactrim which will impair creatinine secretion and falsely raise creatinine level. Creatinine is trending down. 1.23 today. UA benign. 2. Lower extremity cellulitis maintained on antibiotics. 3. Diabetes mellitus. 4. Benign hypertension. Controlled. Plan: Continue with lisinopril and HCTZ for now as blood pressure is not low. Remains off IV fluids. Encouraged oral intake. Avoid nephrotoxins. Continue to monitor renal function and urine output. Thank you for the consultation. I will continue to follow the patient with you during her hospital stay.
[2019-11-17] MEDS ORDERED: FUROSEMIDE 10 MG/ML 4 ML VIAL IV STA (11:29)
[2019-11-17 11:51] LABS: Glucose,Whole Blood 64 mg/dL (75-99)
[2019-11-17 12:02] LABS: Glucose,Whole Blood 73 mg/dL (75-99)
--- NOTE | 2019-11-17 12:33 | ECHOF ---
Referral Reason:chf MEASUREMENTS -------- HEIGHT: 160.0 cm WEIGHT: 77.1 kg BP: 135/66 IVSd: 1.3 cm (0.6 - 1.1) LVIDd: 4.4 cm (3.9 - 5.3) LVPWd: 1.8 cm (0.6 - 1.1) IVSs: 1.4 cm LVIDs: 3.7 cm LVPWs: 1.9 cm LA Diam: 3.6 cm (2.7 - 3.8) LAESV Index (A-L): 29.56 ml/m MV EXCURSION: 18.742 mm (> 18.000) MV EF SLOPE: 68 mm/s (70 - 150) EPSS: 0.6 cm MV E Chavo: 1.02 m/s MV DecT: 184 ms MV A Chavo: 1.11 m/s MV E/A Ratio: 0.92 RAP: 5.00 mmHg RVSP: 39.42 mmHg TAPSE: 24.99 mm FINDINGS -------- Undetermined rhythm. This was a technically good study. The left ventricular size is normal. There is mild concentric left ventricular hypertrophy. Overa ll left ventricular systolic function is mild-moderately impaired with, an EF between 40 - 45 %. Se ptal wall motion is delayed, and consistent with conduction delay/bundle branch block. The right ventricle is normal in size. The left atrium is mildly dilated. LA is midly dilated 29-33ml/m2. The right atrial size is normal. There is mild aortic valve sclerosis. There is no evidence of aortic regurgitation. Mild mitral annular calcification present. Mild mitral regurgitation is present. Mild tricuspid regurgitation present. There is mild pulmonary hypertension. The right ventricular systolic pressure, as measured by Doppler, is 39.42mmHg. There is no pulmonic regurgitation present. The aortic root size is normal. Echo free space indicative of a pericardial fat pad. CONCLUSIONS -------- 1. Undetermined rhythm. 2. This was a technically good study. 3. The left ventricular size is normal. 4. There is mild concentric left ventricular hypertrophy. 5. Overall left ventricular systolic function is mild-moderately impaired with, an EF between 40 - 45 %. 6. Septal wall motion is delayed, and consistent with conduction delay/bundle branch block. 7. The right ventricle is normal in size. 8. The left atrium is mildly dilated. 9. LA is midly dilated 29-33ml/m2. 10. The right atrial size is normal. 11. There is mild aortic valve sclerosis. 12. Mild mitral annular calcification present. 13. Mild mitral regurgitation is present. 14. Mild tricuspid regurgitation present. 15. There is mild pulmonary hypertension. 16. The right ventricular systolic pressure, as measured by Doppler, is 39.42mmHg. 17. There is no pulmonic regurgitation present. 18. The aortic root size is normal. 19. Echo free space indicative of a pericardial fat pad. LOGGER ALL ROUND: Margot Bass RDCS
--- NOTE | 2019-11-17 14:05 | XR ---
EXAMINATION TYPE: XR chest 2V DATE OF EXAM: 11/17/2019 COMPARISON: 11/15/2019 TECHNIQUE: PA and lateral views submitted. HISTORY: Cough, congestion FINDINGS: The lungs are clear and there is no pneumothorax, pleural effusion, or focal pneumonia. Hyperinflat ion. Degenerative change of the spine. Coarsened interstitium. Arthropathy of the shoulder. IMPRESSION: 1. Coarsened interstitium can be seen with chronic interstitial lung disease, interstitial pneumoniti s or bronchitis correlate clinically.
--- NOTE | 2019-11-17 14:49 | P.CRDCN ---
History of Present Illness History of present illness: HISTORY OF PRESENTING ILLNESS This is a pleasant 79-year-old female past medical history significant for hypertension, diabetes mellitus and is currently being treated with Bactrim for cellulitis. 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 We have been asked to see her in consultation for heart failure. She presented to the hospital on advice of her physician secondary to elevated potassium on outpatient labs. She had been started on bactrim for right lower extremity cellulitis. Potassium on admission was 6.1 with creatinine of 1.7. She has been receiving IV hydration and IV boluses. Yesterday she was noted to have lower extremity edema. She denies any symptoms of chest discomfort, shortness of breath, palpitations. Echocardiogram requested reveals impaired LV systolic function with ejection fraction 40-45%, septal wall motion delay consistent with bundle branch block, mild MR and mild TR noted with an RVSP of 39 mmHg. DIAGNOSTICS EKG reveals sinus mechanism with left bundle branch block and left axis deviation. No old EKG for comparison. Chest xray on admission revealed mild interstitial prominence with mild pulmonary vascular congestion. Repeat today reveals coursened interstitium with chronic interstitial disease, pneumonitis or bronchitis. Laboratory data reviewed, WBC 6.3, hemoglobin 11.4, platelets 181, sodium 138, potassium 4.6, creatinine 1.23 troponin 0.048, NT proBNP 1860. Current cardiac medications include []. REVIEW OF SYSTEMS At the time of my exam: CONSTITUTIONAL: Denies fever or chills. CARDIOVASCULAR: Denies chest pain, shortness of breath, orthopnea, PND or palpi tations. RESPIRATORY: Denies cough. GASTROINTESTINAL: Denies abdominal pain, diarrhea, constipation, nausea or vomiting. MUSCULOSKELETAL: Denies myalgias. NEUROLOGIC: Denies numbness, tingling or weakness. ENDOCRINE: Denies fatigue, weight change, polydipsia or polyurina. GENITOURINARY: Denies burning, hematuria or urgency with micturation. HEMATOLOGIC: Denies history of anemia or bleeding. PHYSICAL EXAMINATION Blood pressure 135/66 heart rate 65 afebrile and maintaining oxygen saturation on room air. CONSTITUTIONAL: No apparent distress. HEENT: Head is normocephalic. Pupils are equal, round. Sclerae anicteric. Mucous membranes of the mouth are moist. No JVD. No carotid bruit. CHEST EXAMINATION: Lungs are clear to auscultation. No chest wall tenderness is noted on palpation or with deep breathing. HEART EXAMINATION: Regular rate and rhythm. S1, S2 heard. No murmurs, gallops or rub. ABDOMEN: Soft, nontender. Positive bowel sounds. EXTREMITIES: 2+ peripheral pulses, no lower extremity edema and no calf tenderness. NEUROLOGIC EXAMINATION: Patient is awake, alert and oriented x3. ASSESSMENT Acute systolic heart failure Fluid overload secondary to IV fluid administration Acute kidney injury Hyperkalemia Elevated troponin, minimal. Likely related to acute kidney injury. No symptoms of angina Left bundle branch block Right lower extremity cellulitis Hypertension Diabetes mellitus PLAN Request EKG from PCP to see if the left bundle is chronic. Check second troponin to assess trend. Initiate on lopressor 25 mg BID and atorvastatin 40 mg daily. Give one dose of IV lasix 40 mg. Discontinue hydrochlorothiazide. Repeat chest xray was requested and reviewed. Further recommendations to follow based on clinical course. Thank you kindly for this consultation. Nurse Practitioner note has been reviewed, I agree with a documented findings and plan of care. Patient was seen and examined. Past Medical History Past Medical History: Diabetes Mellitus, Hypertension, Thyroid Disorder Additional Past Medical History / Comment(s): POLIO AT AGE 3 with R leg alittle shorter and smaller, NIDDM, hypothyroid, L hip pain at times. History of Any Multi-Drug Resistant Organisms: None Reported Past Surgical History: No Surgical Hx Reported Additional Past Surgical History / Comment(s): RT/LT CATARACT removal. Additional Past Anesthesia/Blood Transfusion Reaction / Comment(s): NEVER HAS HAD GENERAL ANESTHESIA Past Psychological History: No Psychological Hx Reported Additional Psychological History / Comment(s): Pt resides alone, her 10/30/19. She uses a cane when out and about. 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 2 adult children. No international travel. No experience. Smoked limited amount of time as a youth. No severe alcohol or recreational drug use. No animal exposures. No change in home environment Smoking Status: Former smoker Past Alcohol Use History: None Reported Additional Past Alcohol Use History / Comment(s): QUIT SMOKING 1993 ON AND OFF SOCIALLY SINCE 1958 Past Drug Use History: None Reported - Past Family History Father Family Medical History: Coronary Artery Disease (CAD), Myocardial Infarction ([place]) Additional Family Medical History / Comment(s): Father at the age of 63 yrs from a [place]. He had alot of family members with CAD. Mother Family Medical History: No Reported History Additional Family Medical History / Comment(s): Mother lived to be 90.5 yrs old. Medications and Allergies Home Medications Medication Instructions Recorded Confirmed Type Aspirin 81 mg PO DAILY 06/25/15 11/14/19 History Fish Oil/Dha/Epa [Fish Oil 1,200 1 cap PO DAILY 06/25/15 11/14/19 History mg Fish Oil] Indapamide 5 mg PO DAILY 06/25/15 11/14/19 History Levothyroxine Sodium [Synthroid] 125 mcg PO DAILY 06/25/15 11/14/19 History Lisinopril [Prinivil] 10 mg PO DAILY 06/25/15 11/14/19 History Potassium Chloride [K-Tab ER] 10 meq PO DAILY 06/25/15 11/14/19 History glipiZIDE XL [Glucotrol XL] 5 mg PO AC-BRKFST 06/25/15 11/14/19 History Cholecalciferol [Vitamin D3 (25 1,000 unit PO DAILY 06/23/16 11/14/19 History Mcg = 1000 Iu)] Allopurinol [Zyloprim] 100 mg PO DAILY 11/14/19 11/14/19 History Sulfamethox-Tmp 800-160Mg [Bactrim 1 tab PO Q12HR 11/15/19 11/15/19 History DS 800-160 mg] Allergies Allergy/AdvReac Type Severity Reaction Status Date / Time No Known Allergies Allergy Verified 11/14/19 23:14 Physical Exam Vitals: Vital Signs Temp Pulse Resp BP Pulse Ox 11/17/19 05:00 96.9 F L 65 18 135/66 97 11/16/19 21:00 97.0 F L 89 20 156/73 98 Intake and Output 11/16/19 11/17/19 11/17/19 22:59 06:59 14:59 Intake Total 0 Balance 0 Intake: Oral 0 Other: # Voids 1 2 Results 11/17/19 05:30 11/17/19 05:30 Cardiac Enzymes 11/16/19 Range/Units 16:44 Troponin I 0.048 H* (0.000-0.034) ng/mL CBC 11/17/19 Range/Units 05:30 WBC 6.3 (3.8-10.6) k/uL RBC 3.57 L (3.80-5.40) m/uL Hgb 11.4 (11.4-16.0) gm/dL Hct 33.5 L (34.0-46.0) % Plt Count 181 (150-450) k/uL Comprehensive Metabolic Panel 11/17/19 Range/Units 05:30 Sodium 138 (137-145) mmol/L Potassium 4.6 (3.5-5.1) mmol/L Chloride 106 (98-107) mmol/L Carbon Dioxide 23 (22-30) mmol/L BUN 35 H (7-17) mg/dL Creatinine 1.23 H (0.52-1.04) mg/dL Glucose 107 H (74-99) mg/dL Calcium 9.4 (8.4-10.2) mg/dL Current Medications Generic Name Dose Route Start Last Admin Trade Name Freq PRN Reason Stop Dose Admin Acetaminophen 650 mg 11/15/19 00:55 Tylenol Tab PO Q6HR PRN Fever and/ or Pain Allopurinol 100 mg 11/15/19 09:00 11/17/19 09:05 Zyloprim PO 100 mg DAILY [facility] Administration Aspirin 81 mg 11/15/19 09:00 11/17/19 09:05 Aspirin PO 81 mg DAILY [facility] Administration Cholecalciferol 1,000 unit 11/15/19 09:00 11/17/19 09:05 Vitamin D3 (25 Mcg = 1000 Iu) PO 1,000 unit DAILY [facility] Administration Glipizide 2.5 mg 11/17/19 07:30 11/17/19 09:05 Glucotrol PO 2.5 mg AC-BRKFST [facility] Administration Hydrochlorothiazide 50 mg 11/15/19 09:00 11/17/19 09:06 Hydrodiuril PO 50 mg DAILY [facility] Administration Insulin Aspart 0 unit 11/15/19 07:30 11/17/19 12:52 Novolog SQ Not Given ACHS [facility] Protocol Levothyroxine Sodium 125 mcg 11/15/19 06:30 11/17/19 05:47 Synthroid PO 125 mcg DAILY@0630 [facility] Administration Miscellaneous Information 1 each 11/15/19 11:36 Magnesium Per Protocol MISCELLANE DAILY PRN Per Protocol Protocol Naloxone HCl 0.2 mg 11/14/19 21:26 Narcan IV Q2M PRN Opioid Reversal Intake and Output 11/16/19 11/17/19 11/17/19 22:59 06:59 14:59 Intake Total 0 Balance 0 Intake: Oral 0 Other: # Voids 1 2 11/17/19 05:30 11/17/19 05:30
[2019-11-17 17:02] LABS: Glucose,Whole Blood 108 mg/dL (75-99)
--- NOTE | 2019-11-17 18:36 | PN ---
PROGRESS NOTE DATE OF SERVICE: 11/17/2019. REASON FOR FOLLOWUP: Right lower extremity venous stasis ulcer and wound. INTERVAL HISTORY: The patient is currently afebrile. Patient has been breathing comfortably. The patient denies having any chest pain or any cough. No nausea, no vomiting. No abdominal pain or pain to the right leg area. PHYSICAL EXAMINATION: Blood pressure 158/72 with a pulse of 66. Temperature 97.7, she is 99% on room air. General description is an elderly female up in the chair in no distress. Respiratory system: Unlabored breathing. Clear to auscultation anteriorly. Heart S1, S2. Regular rate and rhythm. Abdomen soft, no tenderness. Right leg is currently dressed up. No obvious drainage on the dressing. LABS: Hemoglobin 11.4, white count 6.3, BUN of 35, creatinine 1.23. DIAGNOSTIC IMPRESSION AND PLAN: Patient with right leg wound from ruptured blisters with no evidence of any secondary cellulitis. Local care to continue with dry Aquacel silver, and Mike wrap to keep the swelling down and monitor clinical course closely. MMODL / IJN: [id number] /
[2019-11-17] MEDS: METOPROLOL TARTRATE 25 MG TAB PO SCH (20:23)
[2019-11-17] MEDS ORDERED: ATORVASTATIN 40 MG TAB PO SCH (21:00)
[2019-11-17 21:10] LABS: Glucose,Whole Blood 146 mg/dL (75-99)
--- NOTE | 2019-11-17 23:43 | P.PN ---
Progress Note - Text Progress Note Date: 11/17/19 Presenting complaint: Multiple issues Interval history: Admitted with right lower extremity venous stasis ulcers and wound, elevated potassium and abnormal renal function. Today-feeling a bit better. Patient has right leg weakness from polio. Had a baseline does use a cane. Denies any pain. Has chronic left hip arthritis. Review of systems: Was done for constitutional, cardiovascular, GI, pulmonary. relevant finding as above Active Medications Acetaminophen (Tylenol Tab) 650 mg PO Q6HR PRN PRN Reason: Fever and/ or Pain Allopurinol (Zyloprim) 100 mg PO DAILY [facility] Last Admin: 11/17/19 09:05 Dose: 100 mg Documented by: Aspirin (Aspirin) 81 mg PO DAILY [facility] Last Admin: 11/17/19 09:05 Dose: 81 mg Documented by: Atorvastatin Calcium (Lipitor) 40 mg PO HS [facility] Last Admin: 11/17/19 20:23 Dose: 40 mg Documented by: Cholecalciferol (Vitamin D3 (25 Mcg = 1000 Iu)) 1,000 unit PO DAILY [facility] Last Admin: 11/17/19 09:05 Dose: 1,000 unit Documented by: Glipizide (Glucotrol) 2.5 mg PO AC-BRKFST [facility] Last Admin: 11/17/19 09:05 Dose: 2.5 mg Documented by: Insulin Aspart (Novolog) 0 unit SQ [facility]; Protocol Last Admin: 11/17/19 21:03 Dose: Not Given Documented by: Levothyroxine Sodium (Synthroid) 125 mcg PO DAILY@0630 [facility] Last Admin: 11/17/19 05:47 Dose: 125 mcg Documented by: Metoprolol Tartrate (Lopressor) 25 mg PO BID [facility] Last Admin: 11/17/19 20:23 Dose: 25 mg Documented by: Miscellaneous Information (Magnesium Per Protocol) 1 each MISCELLANE DAILY PRN; Protocol PRN Reason: Per Protocol Naloxone HCl (Narcan) 0.2 mg IV Q2M PRN PRN Reason: Opioid Reversal On examination: VITAL SIGNS: 96.9, 65, 18, 135/66, 97% room air GENERAL APPEARANCE: BMI 30.1 sitting up in a chair HEENT: Normal external appearance of nose and ear. Oral cavity normal EYES: Pupils equal. Conjunctiva normal. NECK: JVD not raised. Mass not palpable. RESPIRATORY: Respiratory effort normal. Lungs decreased breath sound CARDIOVASCULAR: First and second sounds normal. Some edema. ABDOMEN: Soft. Liver and spleen not palpable. No tenderness. No mass palpable. PSYCHIATRY: Alert and oriented x3. Mood and affect normal. INVESTIGATIONS, reviewed in the clinical context: White count 6.3 hemoglobin 11.4 potassium 4.6 bun 35 creatinine 1.23 Previous testing: Potassium 6.1 bun 41 crit 1.70 UA negative Troponin I 0.048 ProBNP 1860 2-D echo-EF 40-45% Venous Doppler-negative for DVT Assessment: -Acute on chronic congestive heart failure from systolic dysfunction EF 40-45% -Acute kidney injury possibly ATN secondary to Bactrim, improving -Acute blood lower extremity wound from ruptured blister from venous insufficiency -Diabetes mellitus type 2 -Essential hypertension -Hypothyroid -Polio affecting the right 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 -Primary osteoarthritis especially of the hips Plan: Patient overall improving. Renal function is improving. Seen by oncology. Given IV Lasix. Follow I's closely. Care was discussed with patient. Lower extremity informed care to continue in follow-up Leslie barnes.
[2019-11-18] MEDS: LEVOTHYROXINE 125 MCG TAB PO SCH (05:54)
[2019-11-18 07:18] LABS: Glucose,Whole Blood 122 mg/dL (75-99)
[2019-11-18] MEDS: INSULIN ASPART (NovoLOG) 100 UNIT/ML VIAL SQ SCH ×2 (08:33→12:13)
[2019-11-18] MEDS: METOPROLOL TARTRATE 25 MG TAB PO SCH (08:41)
[2019-11-18] MEDS: CHOLECALCIFEROL 1,000 UNIT TAB PO SCH (08:41)
[2019-11-18] MEDS: ASPIRIN 81 MG PO SCH (08:41)
[2019-11-18] MEDS: ALLOPURINOL 100 MG TAB PO SCH (08:41)
[2019-11-18 09:57] LABS: Basophils % (A) 1 %; Eosinophils # (A) 0.2 k/uL (0-0.7); Eosinophils % (A) 2 %; HCT 32.6 % (34.0-46.0); HGB 10.6 gm/dL (11.4-16.0); Lymphocytes # (A) 1.2 k/uL (1.0-4.8); Lymphocytes % (A) 16 %; MCH 31.2 pg (25.0-35.0); MCHC 32.6 g/dL (31.0-37.0); MCV 95.8 fL (80.0-100.0); Mean Platelet Volume 7.2; Monocytes # (A) 0.3 k/uL (0-1.0); Monocytes % (A) 4 %; Neutrophils # (A) 5.6 k/uL (1.3-7.7); Neutrophils % (A) 75 %; Platelet Count 192 k/uL (150-450); RDW 14.6 % (11.5-15.5); WBC 7.5 k/uL (3.8-10.6)
[2019-11-18 10:19] LABS: Calcium 9.4 mg/dL (8.4-10.2); Magnesium 1.6 mg/dL (1.6-2.3); Potassium 4.9 mmol/L (3.5-5.1)
[2019-11-18] MEDS: MAGNESIUM SULFATE-D5W PMX 1 GM in DEXTROSE/WATER 1 100ML.BAG IVPB SCH ×2 (10:59→12:17)
--- NOTE | 2019-11-18 11:27 | P.PN ---
Subjective Patient is seen in follow-up for acute kidney injury. Renal function is improved. Creatinine stable at 1.27 today. She admits to good urine output. No vomiting or diarrhea. No edema. Vital signs are stable. General: The patient appeared well nourished and normally developed. HEENT: Head exam is unremarkable. Neck is without jugular venous distension. LUNGS: Lungs are clear to auscultation and percussion. Breath sounds decreased. HEART: Rate and Rhythm are regular. First and second heart sounds normal. No murmurs, rubs or gallops. ABDOMEN: Abdominal exam reveals normal bowel sounds. Non-tender and non- distended. No evidence of peritonitis. EXTREMITITES: No clubbing, cyanosis, or edema. Objective - Vital Signs Vital signs: Vital Signs Temp 97.0 F L 11/18/19 08:05 Pulse 72 11/18/19 08:05 Resp 16 11/18/19 08:05 BP 135/65 11/18/19 08:05 Pulse Ox 96 11/18/19 08:05 Intake & Output 11/17/19 11/18/19 11/18/19 18:59 06:59 18:59 Intake Total 240 300 Balance 240 300 Intake: Oral 240 300 Other: Voiding Method Toilet # Voids 4 1 # Bowel Movements 1 - Labs CBC & Chem 7: 11/18/19 09:19 11/18/19 09:19 Labs: Abnormal Lab Results - Last 24 Hours (Table) 11/17/19 11/17/19 11/17/19 Range/Units 11:50 12:01 17:00 RBC (3.80-5.40) m/uL Hgb (11.4-16.0) gm/dL Hct (34.0-46.0) % Sodium (137-145) mmol/L BUN (7-17) mg/dL Creatinine (0.52-1.04) mg/dL Glucose (74-99) mg/dL POC Glucose (mg/dL) 64 L 73 L 108 H (75-99) mg/dL 11/17/19 11/18/19 11/18/19 Range/Units 20:53 07:14 09:19 RBC 3.40 L (3.80-5.40) m/uL Hgb 10.6 L (11.4-16.0) gm/dL Hct 32.6 L (34.0-46.0) % Sodium (137-145) mmol/L BUN (7-17) mg/dL Creatinine (0.52-1.04) mg/dL Glucose (74-99) mg/dL POC Glucose (mg/dL) 146 H 122 H (75-99) mg/dL 11/18/19 Range/Units 09:19 RBC (3.80-5.40) m/uL Hgb (11.4-16.0) gm/dL Hct (34.0-46.0) % Sodium 135 L (137-145) mmol/L BUN 45 H (7-17) mg/dL Creatinine 1.27 H (0.52-1.04) mg/dL Glucose 185 H (74-99) mg/dL POC Glucose (mg/dL) (75-99) mg/dL Assessment and Plan Plan: Assessment: 1. Acute kidney injury secondary to Bactrim which will impair creatinine secretion and falsely raise creatinine level. Renal function has improved. 1.27 today. UA benign. 2. Lower extremity cellulitis s/p antibiotics. 3. Diabetes mellitus. 4. Benign hypertension. Controlled. Plan: Encouraged oral intake. Avoid nephrotoxins. Continue to monitor renal function and urine output. Lisinopril can be resumed. Hold off on diuretics at this time. Replace magnesium. Anticipate discharge soon. Follow up outpatient in 1-2 weeks.
[2019-11-18 12:01] LABS: Glucose,Whole Blood 76 mg/dL (75-99)
--- NOTE | 2019-11-18 13:35 | P.PN ---
Subjective HISTORY OF PRESENTING ILLNESS This is a pleasant 79-year-old female past medical history significant for hypertension, diabetes mellitus and is currently being treated with Bactrim for cellulitis. She denies prior history of coronary artery disease and does not follow with a information resources director for any reason. She is seen and examined sitting up in the chair in no acute distress. Lower extremity edema has improved however, not entirely resolved. She denies chest pain, shortness of breath, dizziness or palpitations. Blood pressure 135/65 heart rate 72 afebrile and maintaining oxygen saturation on room air. Laboratory data reviewed, WBC 7.5, hgb 10.6, plt 192, sodium 135, potassium 4.9, creatinine 1.27, repeat troponin 0.034, magnesium 1.6. Old EKG reviewed from 2009 revealing left bundle branch block. PHYSICAL EXAMINATION CONSTITUTIONAL: No apparent distress. HEENT: Head is normocephalic. Pupils are equal, round. Sclerae anicteric. Mucous membranes of the mouth are moist. No JVD. No carotid bruit. CHEST EXAMINATION: Lungs are clear to auscultation. No chest wall tenderness is noted on palpation or with deep breathing. HEART EXAMINATION: Regular rate and rhythm. S1, S2 heard. No murmurs, gallops or rub. EXTREMITIES: 2+ peripheral pulses, trace bilateral lower extremity pitting edema and no calf tenderness. ASSESSMENT Acute systolic heart failure Fluid overload secondary to IV fluid administration Acute kidney injury Hyperkalemia Elevated troponin, minimal. Likely related to acute kidney injury. No symptoms of angina Left bundle branch block Right lower extremity cellulitis Hypertension Diabetes mellitus PLAN Lower extremity edema has improved with IV lasix. Stable from a cardiac perspective. Will require outpatient stress testing in the office. Follow up with Dr. Garcia in 2 weeks. Nurse Practitioner note has been reviewed, I agree with a documented findings and plan of care. Patient was seen and examined. Objective - Vital Signs Vital signs: Vital Signs Temp 97.0 F L 11/18/19 08:05 Pulse 72 11/18/19 08:05 Resp 16 11/18/19 08:05 BP 135/65 11/18/19 08:05 Pulse Ox 96 11/18/19 08:05 Intake & Output 11/17/19 11/18/19 11/18/19 18:59 06:59 18:59 Intake Total 240 300 Balance 240 300 Intake: Oral 240 300 Other: Voiding Method Toilet # Voids 4 1 # Bowel Movements 1 - Labs CBC & Chem 7: 11/18/19 09:19 11/18/19 09:19 Labs: Abnormal Lab Results - Last 24 Hours (Table) 11/17/19 11/17/19 11/18/19 Range/Units 17:00 20:53 07:14 RBC (3.80-5.40) m/uL Hgb (11.4-16.0) gm/dL Hct (34.0-46.0) % Sodium (137-145) mmol/L BUN (7-17) mg/dL Creatinine (0.52-1.04) mg/dL Glucose (74-99) mg/dL POC Glucose (mg/dL) 108 H 146 H 122 H (75-99) mg/dL 11/18/19 11/18/19 Range/Units 09:19 09:19 RBC 3.40 L (3.80-5.40) m/uL Hgb 10.6 L (11.4-16.0) gm/dL Hct 32.6 L (34.0-46.0) % Sodium 135 L (137-145) mmol/L BUN 45 H (7-17) mg/dL Creatinine 1.27 H (0.52-1.04) mg/dL Glucose 185 H (74-99) mg/dL POC Glucose (mg/dL) (75-99) mg/dL
[2019-11-18 15:27] VITALS: BP 140/70; PULSE 70; RESP 18; TEMP 97.9
--- NOTE | 2019-11-18 16:42 | PN ---
PROGRESS NOTE DATE OF SERVICE: 11/18/2019 REASON FOR FOLLOWUP: Right lower extremity venostasis ulcer; no cellulitis. INTERVAL HISTORY: The patient is currently afebrile. The patient has been breathing comfortably. Denies having any chest pain or shortness of breath or cough. No nausea, vomiting or any worsening pain to the right leg area. PHYSICAL EXAMINATION: Blood pressure 135/65 with a pulse of 72, temperature 97. She is 96% on room air. General description is an elderly female up in the bed in no distress. RESPIRATORY SYSTEM: Unlabored breathing. Clear to auscultation anteriorly. HEART: S1, S2. Regular rate and rhythm. ABDOMEN: Soft. No tenderness. Right leg did have swelling; no redness or any drainage. LABS: White count 7.5. DIAGNOSTIC IMPRESSION AND PLAN: Patient with a right lower extremity venostasis ulcer; no cellulitis. Local wound care with dressing and Mike wrap to keep the swelling down. No need for any systemic antibiotic on discharge. Continue with supportive care. MMODL / IJN: [id number] /
--- NOTE | 2019-11-19 00:08 | P.DS ---
Providers Date of admission: 11/14/19 21:26 Expected date of discharge: 11/18/19 Attending physician: Suresh Poon Consults: 11/15/19 11:57 Consult Physician Urgent Consulting Provider: Kelly Alvarez Consult Reason/Comments: RLE chronic cellulitis. abx and wound care recs Do you want consulting provider notified?: Yes 11/16/19 16:28 Consult Physician Routine Consulting Provider: Norberto Dc Consult Reason/Comments: chf?? Do you want consulting provider notified?: Yes Consult Physician Routine Consulting Provider: Marivel Gresham Consult Reason/Comments: arf Do you want consulting provider notified?: Yes Primary care physician: [facility] Hospital Course: Presenting complaint: Multiple issues Hospital course: Admitted with right lower extremity venous stasis ulcers and wound, elevated potassium and abnormal renal function. Also felt to have CHF exacerbation. Given IV Lasix. Creatinine did come down from 1.7 down to 1.2. Diuretics were held. A structural given.Patient has right leg weakness from polio. Had a baseline does use a cane. . Has chronic left hip arthritis. Acute renal failure was felt to be from Bactrim Feeling much improved. Tolerating a diet. Became warm. Breathing is stable. Cleared by cardiology. 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 Discussion and discharge planning more than 35 minutes Consultation: Dr. alvarez from [facility] On examination: VITAL SIGNS: 97, 72, 16, 134/65, 96% room air GENERAL APPEARANCE: Sitting up comfortable HEENT: Normal external appearance of nose and ear. Oral cavity normal EYES: Pupils equal. Conjunctiva normal. NECK: JVD not raised. Mass not palpable. RESPIRATORY: Respiratory effort normal. Lungs decreased breath sound CARDIOVASCULAR: First and second sounds normal. Some edema. ABDOMEN: Soft. Liver and spleen not palpable. No tenderness. No mass palpable. PSYCHIATRY: Alert and oriented x3. Mood and affect normal. Right lower extremity venous stasis ulcer INVESTIGATIONS, reviewed in the clinical context: White count 7.5 hemoglobin 10.6 creatinine 1.27 Previous testing: Potassium 6.1 bun 41 crit 1.70 UA negative Troponin I 0.048 ProBNP 1860 2-D echo-EF 40-45% Venous Doppler-negative for DVT Assessment: -Acute on chronic congestive heart failure from systolic dysfunction EF 40-45% -Acute kidney injury possibly ATN secondary to Bactrim, improving -Acute blood lower extremity wound from ruptured blister from venous insufficiency -Diabetes mellitus type 2 -Essential hypertension -Hypothyroid -Polio affecting the right 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 -Primary osteoarthritis especially of the hips Disposition: Home Patient Condition at Discharge: Fair Plan - Discharge Summary Discharge Rx Participant: No New Discharge Prescriptions: New Atorvastatin [Lipitor] 40 mg PO HS #30 tab Metoprolol Tartrate [Lopressor] 25 mg PO BID #60 tab Continue Aspirin 81 mg PO DAILY glipiZIDE XL [Glucotrol XL] 5 mg PO AC-BRKFST Levothyroxine Sodium [Synthroid] 125 mcg PO DAILY Fish Oil/Dha/Epa [Fish Oil 1,200 mg Fish Oil] 1 cap PO DAILY Cholecalciferol [Vitamin D3 (25 Mcg = 1000 Iu)] 1,000 unit PO DAILY Allopurinol [Zyloprim] 100 mg PO DAILY Changed Lisinopril [Prinivil] 5 mg PO DAILY #0 Discontinued Potassium Chloride [K-Tab ER] 10 meq PO DAILY Indapamide 5 mg PO DAILY Sulfamethox-Tmp 800-160Mg [Bactrim DS 800-160 mg] 1 tab PO Q12HR Discharge Medication List Aspirin 81 mg PO DAILY 06/25/15 [History] Fish Oil/Dha/Epa [Fish Oil 1,200 mg Fish Oil] 1 cap PO DAILY 06/25/15 [History] Levothyroxine Sodium [Synthroid] 125 mcg PO DAILY 06/25/15 [History] glipiZIDE XL [Glucotrol XL] 5 mg PO AC-BRKFST 06/25/15 [History] Cholecalciferol [Vitamin D3 (25 Mcg = 1000 Iu)] 1,000 unit PO DAILY 06/23/16 [History] Allopurinol [Zyloprim] 100 mg PO DAILY 11/14/19 [History] Atorvastatin [Lipitor] 40 mg PO HS #30 tab 11/18/19 [Rx] Lisinopril [Prinivil] 5 mg PO DAILY #0 11/18/19 [Rx] Metoprolol Tartrate [Lopressor] 25 mg PO BID #60 tab 11/18/19 [Rx] Follow up Appointment(s)/Referral(s): Tello Hays DO [Primary Care Provider] - 11/25/19 11:40 am () Krishna Shrestha DO [STAFF PHYSICIAN] - 2 Weeks (office to call you with appt. time and date.) Dante Garcia MD [STAFF PHYSICIAN] - 2 Weeks [facility] Visiting Nurse, [NON-STAFF] - 1-2 Days Patient Instructions/Handouts: Hyperkalemia (DC) Activity/Diet/Wound Care/Special Instructions: BMP - 3 days Discharge Disposition: HOME WITH HOME HEALTH SERVICES
== END 2019-11-18 15:31 | disposition home health service (06) | DRG 682 ==
LOC: EC 19:46 → 6NMEDSUR 21:26
PROVIDERS: ADMIT Hospitalist; ATTEND Hospitalist
DX: N17.0 Acute kidney failure with tubular necrosis (principal); I50.23 Acute on chronic systolic (congestive) heart failure; L97.919 Non-pressure chronic ulcer of unspecified part of right lower leg with unspecified severity; B91 Sequelae of poliomyelitis; D63.8 Anemia in other chronic diseases classified elsewhere; E03.9 Hypothyroidism, unspecified; E66.9 Obesity, unspecified; E86.0 Dehydration; E87.5 Hyperkalemia; I11.0 Hypertensive heart disease with heart failure; I44.7 Left bundle-branch block, unspecified; I87.2 Venous insufficiency (chronic) (peripheral); E11.9 Type 2 diabetes mellitus without complications; M16.12 Unilateral primary osteoarthritis, left hip; T36.8X5A Adverse effect of other systemic antibiotics, initial encounter; Z68.30 Body mass index [BMI] 30.0-30.9, adult; Z79.82 Long term (current) use of aspirin; Z79.84 Long term (current) use of oral hypoglycemic drugs; Z79.890 Hormone replacement therapy; Z79.899 Other long term (current) drug therapy; Z82.49 Family history of ischemic heart disease and other diseases of the circulatory system; Z87.891 Personal history of nicotine dependence; Z98.42 Cataract extraction status, left eye; Z98.41 Cataract extraction status, right eye; Z79.2 Long term (current) use of antibiotics
CPT/HCPCS: 36415; 71045; 71046; 80048; 80053; 81003; 83735; 83880; 84484; 85025; 93005; 93306; 96361; 96374; 99285

== ENCOUNTER 2019-12-01 09:17 | Inpatient (IN) | payer MEDICARE, OTHER ==
[2019-12-01] MEDS ORDERED: LABETALOL 5 MG/ML VIAL MDV IVP STA (09:21)
--- NOTE | 2019-12-01 09:24 | ED ---
General Adult HPI - General Stated complaint: Sob Time Seen by Provider: 12/01/19 09:17 Source: patient, RN notes reviewed, old records reviewed - History of Present Illness Initial comments: This is an 79-year-old female presents emergency Department complaining of shortness of breath over the last few days. Patient states shortness breath got progressively worse per patient states today she get up and she was having a very difficult time breathing especially with any exertion. Patient did not take any of her medications morning. EMS arrived and she was at about 92% both short walk the patient dropped down into the 80s. Patient became much more dyspneic at that time according to EMS. EMS did give her to breathing treatment as well as Solu-Medrol. Patient denies any chest pain over the last couple of days per patient denies any palpitations per patient denies any cough patient denies any fever chills. Patient denies any headache patient denies any numbness weakness. Patient denies any lightheadedness or dizziness. Patient states she has swelling to her legs but it is not any worse than normal. - Related Data Home Medications Medication Instructions Recorded Confirmed Aspirin 81 mg PO DAILY 06/25/15 11/14/19 Fish Oil/Dha/Epa [Fish Oil 1,200 1 cap PO DAILY 06/25/15 11/14/19 mg Fish Oil] Levothyroxine Sodium [Synthroid] 125 mcg PO DAILY 06/25/15 11/14/19 glipiZIDE XL [Glucotrol XL] 5 mg PO AC-BRKFST 06/25/15 11/14/19 Cholecalciferol [Vitamin D3 (25 1,000 unit PO DAILY 06/23/16 11/14/19 Mcg = 1000 Iu)] Allopurinol [Zyloprim] 100 mg PO DAILY 11/14/19 11/14/19 Previous Rx's Medication Instructions Recorded Atorvastatin [Lipitor] 40 mg PO HS #30 tab 11/18/19 Lisinopril [Prinivil] 5 mg PO DAILY #0 11/18/19 Metoprolol Tartrate [Lopressor] 25 mg PO BID #60 tab 11/18/19 Allergies Allergy/AdvReac Type Severity Reaction Status Date / Time No Known Allergies Allergy Verified 11/14/19 23:14 Review of Systems ROS Statement: Those systems with pertinent positive or pertinent negative responses have been documented in the HPI. ROS Other: All systems not noted in ROS Statement are negative. Past Medical History Past Medical History: Diabetes Mellitus, Hypertension, Thyroid Disorder Additional Past Medical History / Comment(s): POLIO AT AGE 3 with R leg alittle shorter and smaller, NIDDM, hypothyroid, L hip pain at times. History of Any Multi-Drug Resistant Organisms: None Reported Past Surgical History: No Surgical Hx Reported Additional Past Surgical History / Comment(s): RT/LT CATARACT removal. Additional Past Anesthesia/Blood Transfusion Reaction / Comment(s): NEVER HAS HAD GENERAL ANESTHESIA Past Psychological History: No Psychological Hx Reported Additional Psychological History / Comment(s): Pt resides alone, her 10/30/19. She uses a cane when out and about. 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 She drives. 2 adult children. No international travel. No experience. Smoked limited amount of time as a youth. No severe alcohol or recreational drug use. No animal exposures. No change in home environment Smoking Status: Former smoker Past Alcohol Use History: None Reported Additional Past Alcohol Use History / Comment(s): QUIT SMOKING 1993 ON AND OFF SOCIALLY SINCE 1958 Past Drug Use History: None Reported - Past Family History Father Family Medical History: Coronary Artery Disease (CAD), Myocardial Infarction (RI) Additional Family Medical History / Comment(s): Father at the age of 63 yrs from a RI. He had alot of family members with CAD. Mother Family Medical History: No Reported History Additional Family Medical History / Comment(s): Mother lived to be 90.5 yrs old. General Exam - General Exam Comments Initial Comments: GENERAL: Patient is well-developed and well-nourished. Patient is nontoxic and well-hydrated and is in mild distress. ENT: Neck is soft and supple. No significant lymphadenopathy is noted. Oropharynx is clear. Moist mucous membranes. Neck has full range of motion without eliciting any pain. EYES: The sclera were anicteric and conjunctiva were pink and moist. Extraocular movements were intact and pupils were equal round and reactive to light. Eyelids were unremarkable. PULMONARY: Expiratory wheezing bilaterally with crackles in the bases CARDIOVASCULAR: There is a regular rate and rhythm without any murmurs gallops or rubs. ABDOMEN: Soft and nontender with normal bowel sounds. SKIN: Skin is clear with no lesions or rashes and otherwise unremarkable. NEUROLOGIC: Patient is alert and oriented x3. Cranial nerves II through XII are grossly intact. Motor and sensory are also intact. Normal speech, volume and content. Symmetrical smile. MUSCULOSKELETAL: Normal extremities with adequate strength and full range of motion. 1+ edema LYMPHATICS: No significant lymphadenopathy is noted PSYCHIATRIC: Normal psychiatric evaluation. Course Vital Signs 12/01/19 12/01/19 12/01/19 09:18 09:39 09:53 Temperature 97.6 F Pulse Rate 79 72 Respiratory 24 23 Rate Blood Pressure 216/117 222/138 163/54 O2 Sat by Pulse 91 L 91 L Oximetry 12/01/19 12/01/19 10:00 10:30 Temperature Pulse Rate 73 58 L Respiratory 23 22 Rate Blood Pressure 163/54 162/70 O2 Sat by Pulse 93 L 94 L Oximetry Medical Decision Making - Medical Decision Making EKG shows sinus rhythm with occasional PAC with a left bundle branch block patient has a rate of 79 bpm RI interval is 180 QRS is 156 QT intervals 416 QTC is 477. Chest x-ray shows pulmonary edema. Patient received hydralazine for her hypertensive urgency that didn't bring down the blood pressure denies. Patient also received Lasix Nitropaste for the congestive heart. I spoke with Dr. Poon he agreed to admit the patient admitted the patient I wrote admitting orders I consult cardiology. - Lab Data Result diagrams: 12/01/19 09:38 12/01/19 09:38 Lab Results 12/01/19 12/01/19 12/01/19 Range/Units 09:38 09:38 09:38 WBC 15.1 H (3.8-10.6) k/uL RBC 3.99 (3.80-5.40) m/uL Hgb 12.6 (11.4-16.0) gm/dL Hct 38.0 (34.0-46.0) % MCV 95.1 (80.0-100.0) fL MCH 31.5 (25.0-35.0) pg MCHC 33.1 (31.0-37.0) g/dL RDW 15.6 H (11.5-15.5) % Plt Count 299 (150-450) k/uL Neutrophils % 83 % Lymphocytes % 10 % Monocytes % 5 % Eosinophils % 1 % Basophils % 1 % Neutrophils # 12.4 H (1.3-7.7) k/uL Lymphocytes # 1.4 (1.0-4.8) k/uL Monocytes # 0.7 (0-1.0) k/uL Eosinophils # 0.1 (0-0.7) k/uL Basophils # 0.1 (0-0.2) k/uL Hypochromasia Slight Poikilocytosis Slight PT (9.0-12.0) sec INR (<1.2) APTT (22.0-30.0) sec D-Dimer (<0.60) mg/L FEU Sodium 141 (137-145) mmol/L Potassium 4.5 (3.5-5.1) mmol/L Chloride 107 (98-107) mmol/L Carbon Dioxide 24 (22-30) mmol/L Anion Gap 10 mmol/L BUN 34 H (7-17) mg/dL Creatinine 1.10 H (0.52-1.04) mg/dL Est GFR (CKD-EPI)AfAm 54 (>60 ml/min/1.73 sqM) Est GFR (CKD-EPI)NonAf 47 (>60 ml/min/1.73 sqM) Glucose 188 H (74-99) mg/dL Plasma Lactic Acid Terrance 1.9 (0.7-2.0) mmol/L Calcium 9.2 (8.4-10.2) mg/dL Magnesium 1.8 (1.6-2.3) mg/dL Total Bilirubin 0.7 (0.2-1.3) mg/dL AST 36 (14-36) U/L ALT 50 H (4-34) U/L Alkaline Phosphatase 108 (38-126) U/L Troponin I (0.000-0.034) ng/mL NT-Pro-B Natriuret Pep pg/mL Total Protein 7.3 (6.3-8.2) g/dL Albumin 4.4 (3.5-5.0) g/dL 12/01/19 12/01/19 12/01/19 Range/Units 09:38 09:38 09:38 WBC (3.8-10.6) k/uL RBC (3.80-5.40) m/uL Hgb (11.4-16.0) gm/dL Hct (34.0-46.0) % MCV (80.0-100.0) fL MCH (25.0-35.0) pg MCHC (31.0-37.0) g/dL RDW (11.5-15.5) % Plt Count (150-450) k/uL Neutrophils % % Lymphocytes % % Monocytes % % Eosinophils % % Basophils % % Neutrophils # (1.3-7.7) k/uL Lymphocytes # (1.0-4.8) k/uL Monocytes # (0-1.0) k/uL Eosinophils # (0-0.7) k/uL Basophils # (0-0.2) k/uL Hypochromasia Poikilocytosis PT 11.4 (9.0-12.0) sec INR 1.1 (<1.2) APTT 23.7 (22.0-30.0) sec D-Dimer 0.55 (<0.60) mg/L FEU Sodium (137-145) mmol/L Potassium (3.5-5.1) mmol/L Chloride (98-107) mmol/L Carbon Dioxide (22-30) mmol/L Anion Gap mmol/L BUN (7-17) mg/dL Creatinine (0.52-1.04) mg/dL Est GFR (CKD-EPI)AfAm (>60 ml/min/1.73 sqM) Est GFR (CKD-EPI)NonAf (>60 ml/min/1.73 sqM) Glucose (74-99) mg/dL Plasma Lactic Acid Terrance (0.7-2.0) mmol/L Calcium (8.4-10.2) mg/dL Magnesium (1.6-2.3) mg/dL Total Bilirubin (0.2-1.3) mg/dL AST (14-36) U/L ALT (4-34) U/L Alkaline Phosphatase (38-126) U/L Troponin I 0.049 H* (0.000-0.034) ng/mL NT-Pro-B Natriuret Pep 4610 pg/mL Total Protein (6.3-8.2) g/dL Albumin (3.5-5.0) g/dL Critical Care Time Critical Care Time: Yes Total Critical Care Time: 35 Disposition Clinical Impression: Acute pulmonary edema, Hypertensive urgency Disposition: ADMITTED IP TO THIS HOSP Referrals: Tello Hays DO [Primary Care Provider] - 1-2 days Time of Disposition: 11:01
[2019-12-01 09:54] LABS: Basophils # (A) 0.1 k/uL (0-0.2); Basophils % (A) 1 %; Eosinophils # (A) 0.1 k/uL (0-0.7); Eosinophils % (A) 1 %; HGB 12.6 gm/dL (11.4-16.0); Hypochromasia Slight; Lymphocytes # (A) 1.4 k/uL (1.0-4.8); Lymphocytes % (A) 10 %; MCH 31.5 pg (25.0-35.0); MCHC 33.1 g/dL (31.0-37.0); MCV 95.1 fL (80.0-100.0); Mean Platelet Volume 7.5; Monocytes # (A) 0.7 k/uL (0-1.0); Monocytes % (A) 5 %; Neutrophils # (A) 12.4 k/uL (1.3-7.7); Neutrophils % (A) 83 %; Platelet Count 299 k/uL (150-450); Poikilocytosis Slight; RBC 3.99 m/uL (3.80-5.40); RDW 15.6 % (11.5-15.5); WBC 15.1 k/uL (3.8-10.6)
[2019-12-01 10:04] LABS: Albumin 4.4 g/dL (3.5-5.0); Calcium 9.2 mg/dL (8.4-10.2); Magnesium 1.8 mg/dL (1.6-2.3); Potassium 4.5 mmol/L (3.5-5.1); Total Bilirubin 0.7 mg/dL (0.2-1.3); Total Protein 7.3 g/dL (6.3-8.2)
[2019-12-01 10:05] LABS: D-Dimer 0.55 mg/L FEU (<0.60); INR 1.1 (<1.2); Partial Thromboplastin Time 23.7 sec (22.0-30.0); Prothrombin Time 11.4 sec (9.0-12.0)
--- NOTE | 2019-12-01 10:26 | XR ---
EXAMINATION TYPE: XR chest 2V DATE OF EXAM: 12/01/2019 COMPARISON: Prior chest 11/17/2019 HISTORY: Difficulty breathing TECHNIQUE: Frontal and lateral views of the chest are obtained. FINDINGS: Central vascularity and interstitium are diffusely increased. No evident pneumothorax. Bib asilar increased density is noted. Heart is enlarged. Patient is rotated, there are overlying cardiac leads. IMPRESSION: Correlate for congestive heart failure.
[2019-12-01] MEDS ORDERED: FUROSEMIDE 10 MG/ML 4 ML VIAL IV STA (10:37)
[2019-12-01] MEDS ORDERED: NITROGLYCERIN OINT 1 INCH/GM PACKET TOPICAL STA (10:37)
[2019-12-01 14:19] VITALS: BMI 30.1
[2019-12-01] MEDS ORDERED: ALLOPURINOL 100 MG TAB PO STA (15:17)
[2019-12-01] MEDS ORDERED: ASPIRIN 81 MG PO STA (15:18)
[2019-12-01] MEDS ORDERED: LISINOPRIL 5 MG TAB PO STA (15:19)
--- NOTE | 2019-12-01 15:36 | P.CRDCN ---
History of Present Illness Consult date: 12/01/19 Consult reason: congestive heart failure Chief complaint: Shortness of breath History of present illness: This is a pleasant 79-year-old female past medical history significant for hypertension, diabetes mellitus and is currently being treated with Bactrim for cellulitis. Patient had a recent hospitalization with this and was just discharged home from the hospital. She had an echo performed during that ad mission which revealed an impaired LV systolic function with an ejection fraction of 40-45%, septal wall motion delay consistent with bundle branch block, mild MR, mild TR, RVSP of 39. Patient presents back to the hospital on this occasion with symptoms of progressively worsening shortness of breath. Chest x-ray on presentation here showed correlation for congestive heart failure. Her EKG showed a sinus rhythm with a left bundle-branch block pattern, occasional PACs. I pressure 188/70 with a heart rate in the 60s, 93% on 4 L of oxygen. White blood cell count 15.1, hemoglobin 12.6, platelet count 299. Sodium 141, potassium 4.5, BUN 34, creatinine 1.1, d-dimer 0.5. BNP.049, BNP level 4610. She was initiated on IV Lasix. Patient's home medications included Glucotrol, Lopressor 25 twice a day, Prinivil 5 mg daily, Synthroid, Lipitor 40 mg daily, baby aspirin daily. Past Medical History Past Medical History: Diabetes Mellitus, Hypertension, Osteoarthritis (OA), Thyroid Disorder, Vascular Disorder Additional Past Medical History / Comment(s): Pt recently admitted to [facility] on 11/14/19 with R lower extremity stasis ulcer/wound/cellulitis, abnormal renal function, CHF, hyperkalemia. Other hx: POLIO AT AGE 3 with R leg alittle shorter/weaker and smaller, NIDDM, hypothyroid, anemia, gout bilateral great toes, L hip pain at times d/t OA, occasional lower extremity edema mostly involving R leg History of Any Multi-Drug Resistant Organisms: None Reported Past Surgical History: No Surgical Hx Reported Additional Past Surgical History / Comment(s): RT/LT CATARACT removal with lens implants, I&D L middle finger/abscess. Past Anesthesia/Blood Transfusion Reactions: No Reported Reaction Additional Past Anesthesia/Blood Transfusion Reaction / Comment(s): NEVER HAS HAD GENERAL ANESTHESIA Smoking Status: Former smoker - Past Family History Father Family Medical History: Coronary Artery Disease (CAD), Myocardial Infarction ([place]) Additional Family Medical History / Comment(s): Father at the age of 63 yrs from a [place]. He had alot of family members with CAD. Mother Family Medical History: No Reported History Additional Family Medical History / Comment(s): Mother lived to be 90.5 yrs old. Medications and Allergies Home Medications Medication Instructions Recorded Confirmed Type Aspirin 81 mg PO DAILY 06/25/15 12/01/19 History Fish Oil/Dha/Epa [Fish Oil 1,200 1 cap PO DAILY 06/25/15 12/01/19 History mg Fish Oil] Levothyroxine Sodium [Synthroid] 125 mcg PO DAILY 06/25/15 12/01/19 History glipiZIDE XL [Glucotrol XL] 5 mg PO AC-BRKFST 06/25/15 12/01/19 History Cholecalciferol [Vitamin D3 (25 1,000 unit PO DAILY 06/23/16 12/01/19 History Mcg = 1000 Iu)] Allopurinol [Zyloprim] 100 mg PO DAILY 11/14/19 12/01/19 History Atorvastatin [Lipitor] 40 mg PO HS #30 tab 11/18/19 12/01/19 Rx Lisinopril [Prinivil] 5 mg PO DAILY #0 11/18/19 12/01/19 Rx Metoprolol Tartrate [Lopressor] 25 mg PO BID #60 tab 11/18/19 12/01/19 Rx Allergies Allergy/AdvReac Type Severity Reaction Status Date / Time No Known Allergies Allergy Verified 12/01/19 11:22 Physical Exam Vitals: Vital Signs Temp Pulse Pulse Resp BP BP Pulse Ox 12/01/19 14:28 182/79 12/01/19 12:00 97.6 F 67 18 188/77 93 L 12/01/19 11:00 57 L 22 173/68 95 12/01/19 10:30 58 L 22 162/70 94 L 12/01/19 10:00 73 23 163/54 93 L 12/01/19 09:53 163/54 12/01/19 09:39 72 23 222/138 91 L 12/01/19 09:18 97.6 F 79 24 216/117 91 L Intake and Output 12/01/19 12/01/19 12/01/19 06:59 14:59 22:59 Output Total 200 Balance -200 Output: Urine 200 Other: # Voids 1 Weight 77.111 kg CONSTITUTIONAL: No apparent distress. HEENT: Head is normocephalic. Pupils are equal, round. Sclerae anicteric. Mucous membranes of the mouth are moist. Mildly elevated JVP. No carotid bruit. CHEST EXAMINATION: Lungs are clear to auscultation anteriorly with diminished air entry to the bases bilaterally posteriorly. No chest wall tenderness is noted on palpation or with deep breathing. HEART EXAMINATION: Regular rate and rhythm. S1, S2 heard. No murmurs, gallops or rub. ABDOMEN: Soft, nontender. Positive bowel sounds. EXTREMITIES: 2+ peripheral pulses, 2+ lower extremity edema, evidence of discoloration bilaterally, dressing in place to the right lower extremity, cellulitis. NEUROLOGIC EXAMINATION: Patient is awake, alert and oriented x3. Results 12/01/19 09:38 12/01/19 09:38 Cardiac Enzymes 12/01/19 12/01/19 Range/Units 09:38 09:38 AST 36 (14-36) U/L Troponin I 0.049 H* (0.000-0.034) ng/mL Coagulation 12/01/19 Range/Units 09:38 PT 11.4 (9.0-12.0) sec APTT 23.7 (22.0-30.0) sec CBC 12/01/19 Range/Units 09:38 WBC 15.1 H (3.8-10.6) k/uL RBC 3.99 (3.80-5.40) m/uL Hgb 12.6 (11.4-16.0) gm/dL Hct 38.0 (34.0-46.0) % Plt Count 299 (150-450) k/uL Comprehensive Metabolic Panel 12/01/19 Range/Units 09:38 Sodium 141 (137-145) mmol/L Potassium 4.5 (3.5-5.1) mmol/L Chloride 107 (98-107) mmol/L Carbon Dioxide 24 (22-30) mmol/L BUN 34 H (7-17) mg/dL Creatinine 1.10 H (0.52-1.04) mg/dL Glucose 188 H (74-99) mg/dL Calcium 9.2 (8.4-10.2) mg/dL AST 36 (14-36) U/L ALT 50 H (4-34) U/L Alkaline Phosphatase 108 (38-126) U/L Total Protein 7.3 (6.3-8.2) g/dL Albumin 4.4 (3.5-5.0) g/dL Current Medications Generic Name Dose Route Start Last Admin Trade Name Freq PRN Reason Stop Dose Admin Allopurinol 100 mg 12/02/19 09:00 Zyloprim PO DAILY [facility] Aspirin 81 mg 12/02/19 09:00 Aspirin PO DAILY [facility] Atorvastatin Calcium 40 mg 12/01/19 21:00 Lipitor PO HS [facility] Cholecalciferol 1,000 unit 12/02/19 09:00 Vitamin D3 (25 Mcg = 1000 Iu) PO DAILY [facility] Furosemide 40 mg 12/01/19 20:00 Lasix IV Q8H [facility] Glipizide 2.5 mg 12/02/19 09:00 Glucotrol PO BID [facility] Levothyroxine Sodium 125 mcg 12/02/19 06:30 Synthroid PO DAILY@0630 [facility] Lisinopril 5 mg 12/02/19 09:00 Zestril PO DAILY [facility] Metoprolol Tartrate 25 mg 12/01/19 21:00 Lopressor PO BID [facility] Nitroglycerin 1 inch 12/01/19 18:00 Nitro-Bid Oint TOPICAL QID [facility] Intake and Output 12/01/19 12/01/19 12/01/19 06:59 14:59 22:59 Output Total 200 Balance -200 Output: Urine 200 Other: # Voids 1 Weight 77.111 kg Patient Weight 12/02/19 06:59 Weight 77.111 kg 12/01/19 09:38 12/01/19 09:38 EKG Interpretations (text) EKG shows normal sinus rhythm with left bundle-branch block pattern, occasional PAC Assessment and Plan Plan: Assessment and plan #1 systolic congestive heart failure acute on chronic #2 troponin abnormality, not consistent with acute coronary syndrome, no signif icant rise and fall pattern from recent admission. #3 hypertension, accelerated #4 diabetes #5 cellulitis, on Bactrim Plan Patient just recently had an echo earlier this month which revealed an ejection fraction of 40-45%. We will continue current dose of IV Lasix. Adjust blood pressure medications to optimize blood pressure control. Continue to monitor daily weights and daily lytes BUN and creatinine. DNP note has been reviewed, I agree with a documented findings and plan of care. Patient was seen and examined.
[2019-12-01] MEDS: METOPROLOL TARTRATE 25 MG TAB PO SCH ×2 (15:41→21:09)
[2019-12-01 16:52] LABS: Glucose,Whole Blood 248 mg/dL (75-99)
[2019-12-01] MEDS: NITROGLYCERIN OINT 1 INCH/GM PACKET TOPICAL SCH ×2 (18:16→21:10)
[2019-12-01] MEDS: FUROSEMIDE 10 MG/ML 4 ML VIAL IV SCH (20:04)
[2019-12-01] MEDS: ATORVASTATIN 40 MG TAB PO SCH (20:04)
[2019-12-01] MEDS ORDERED: METOPROLOL TARTRATE 25 MG TAB PO SCH (21:00)
[2019-12-01 21:20] LABS: Glucose,Whole Blood 208 mg/dL (75-99)
[2019-12-02 06:08] LABS: Glucose,Whole Blood 147 mg/dL (75-99)
[2019-12-02] MEDS: LEVOTHYROXINE 125 MCG TAB PO SCH (06:37)
[2019-12-02] MEDS: FUROSEMIDE 10 MG/ML 4 ML VIAL IV SCH ×3 (06:37→20:01)
[2019-12-02] MEDS: NITROGLYCERIN OINT 1 INCH/GM PACKET TOPICAL SCH (08:30)
[2019-12-02] MEDS: ALLOPURINOL 100 MG TAB PO SCH (08:30)
[2019-12-02] MEDS: ASPIRIN 81 MG PO SCH (08:30)
[2019-12-02] MEDS: CHOLECALCIFEROL 1,000 UNIT TAB PO SCH (08:30)
[2019-12-02] MEDS ORDERED: LISINOPRIL 5 MG TAB PO SCH (09:00)
[2019-12-02] MEDS ORDERED: NON FORMULARY DRUG (Fish Oil/Dha/Epa [Fish Oil 1,200 Mg Fish Oil] 1 CAP) PO SCH (09:00)
--- NOTE | 2019-12-02 11:12 | P.CONS ---
History of Present Illness - Reason for Consult Consult date: 12/02/19 Wound care - History of Present Illness This is a 79-year-old pleasant female being seen by when the [facility] on for nonhealing ulcerations to right lower extremity. Patient states that about 3 weeks ago the area on her dominguez opened up causing some drainage she was seen by her primary care doctor who diagnosed her with cellulitis. Cultures were obtained and antibiotic given. A small open ulceration to the anterior right lower extremity measuring approximately 0.5 x 0.5 x 0.1 CM. Wound bed shows granulation with minimal slough patches of dry flaky reddened skin is noted. Patient states that the area was draining previously however for the last 2 days she not had any drainage. Patient states that the area has improved significantly compared to 3 weeks ago. Review of Systems Review Of Systems: Constitutional: No fever, no chills, no night sweats. No weight change. No weakness, fatigue or lethargy. No daytime sleepiness. Integumentary:reports wounds, no lesions. No rash or pruritus. No unusual bruising. No change in hair or nails. Past Medical History Past Medical History: Diabetes Mellitus, Hypertension, Osteoarthritis (OA), Thyroid Disorder, Vascular Disorder Additional Past Medical History / Comment(s): Pt recently admitted to [facility] on 11/14/19 with R lower extremity stasis ulcer/wound/cellulitis, abnormal renal function, CHF, hyperkalemia. Other hx: POLIO AT AGE 3 with R leg alittle shorter/weaker and smaller, NIDDM, hypothyroid, anemia, gout bilateral great toes, L hip pain at times d/t OA, occasional lower extremity edema mostly involving R leg History of Any Multi-Drug Resistant Organisms: None Reported Past Surgical History: No Surgical Hx Reported Additional Past Surgical History / Comment(s): RT/LT CATARACT removal with lens implants, I&D L middle finger/abscess. Past Anesthesia/Blood Transfusion Reactions: No Reported Reaction Additional Past Anesthesia/Blood Transfusion Reaction / Comm: NEVER HAS HAD GENERAL ANESTHESIA Smoking Status: Former smoker - Past Family History Father Family Medical History: Coronary Artery Disease (CAD), Myocardial Infarction ([place]) Additional Family Medical History / Comment(s): Father at the age of 63 yrs from a [place]. He had alot of family members with CAD. Mother Family Medical History: No Reported History Additional Family Medical History / Comment(s): Mother lived to be 90.5 yrs old. Medications and Allergies Home Medications Medication Instructions Recorded Confirmed Type Aspirin 81 mg PO DAILY 06/25/15 12/01/19 History Fish Oil/Dha/Epa [Fish Oil 1,200 1 cap PO DAILY 06/25/15 12/01/19 History mg Fish Oil] Levothyroxine Sodium [Synthroid] 125 mcg PO DAILY 06/25/15 12/01/19 History glipiZIDE XL [Glucotrol XL] 5 mg PO AC-BRKFST 06/25/15 12/01/19 History Cholecalciferol [Vitamin D3 (25 1,000 unit PO DAILY 06/23/16 12/01/19 History Mcg = 1000 Iu)] Allopurinol [Zyloprim] 100 mg PO DAILY 11/14/19 12/01/19 History Atorvastatin [Lipitor] 40 mg PO HS #30 tab 11/18/19 12/01/19 Rx Lisinopril [Prinivil] 5 mg PO DAILY #0 11/18/19 12/01/19 Rx Metoprolol Tartrate [Lopressor] 25 mg PO BID #60 tab 11/18/19 12/01/19 Rx Allergies Allergy/AdvReac Type Severity Reaction Status Date / Time No Known Allergies Allergy Verified 12/01/19 11:22 Physical Exam Vitals: Vital Signs Temp Pulse Resp BP Pulse Ox 12/02/19 08:35 18 12/02/19 08:31 96.8 F L 50 L 18 174/67 100 12/02/19 06:30 50 L 18 176/74 99 12/02/19 04:00 57 L 18 12/02/19 03:05 98.1 F 57 L 18 137/63 99 12/02/19 00:00 98.2 F 58 L 19 166/70 98 12/01/19 20:00 98.7 F 68 18 173/74 12/01/19 16:00 18 12/01/19 15:42 98.6 F 66 18 187/75 99 12/01/19 14:28 182/79 12/01/19 12:00 97.6 F 67 18 188/77 93 L Intake and Output 12/01/19 12/02/19 12/02/19 22:59 06:59 14:59 Intake Total 120 240 Output Total 200 100 400 Balance -80 -100 -160 Intake: Oral 120 240 Output: Urine 200 100 400 Other: Voiding Method Bedside Commode Bedside Commode Bedside Commode Weight 79.9 kg Physical exam: General Appearance: Alert, cooperative, no distress, appears stated age. Skin: See HPI all other Skin color, texture, tugor normal, no rashes or lesions. Neurologic: Alert oriented x3 Results CBC & Chem 7: 12/01/19 09:38 12/01/19 09:38 Labs: Abnormal Lab Results - Last 24 Hours (Table) 12/01/19 12/01/19 12/02/19 Range/Units 16:47 21:15 05:57 POC Glucose (mg/dL) 248 H 208 H 147 H (75-99) mg/dL Assessment and Plan (1) Nonhealing ulcer of right lower extremity limited to breakdown of skin Current Visit: Yes Status: Acute Code(s): L97.911 - NON-PRS CHR ULC UNSP PRT OF R LOW LEG LIMITED TO BRKDWN SKIN SNOMED Code(s): 88740992 (2) Cellulitis of right lower limb Current Visit: Yes Status: Acute Code(s): L03.115 - CELLULITIS OF RIGHT LOWER LIMB SNOMED Code(s): 100553998 (3) Leg wound, right Current Visit: No Status: Acute Code(s): S81.801A - UNSPECIFIED OPEN WOUND, RIGHT LOWER LEG, INITIAL ENCOUNTER SNOMED Code(s): 897429357 (4) Type 2 diabetes with skin ulcer of lower extremity Current Visit: Yes Status: Acute Code(s): E11.622 - TYPE 2 DIABETES MELLITUS WITH OTHER SKIN ULCER; L97.909 - NON-PRS CHRONIC ULC UNSP PRT OF UNSP LOW LEG W UNSP SEVERITY SNOMED Code(s): 868262548 Plan: Discussed with patient importance of keeping the leg clean and dry. May apply zinc barrier cream for the next few weeks. Wrap with rolled gauze and secure with paper tape. Instructed patient if the ulcerations appear to worsen consider treatment in the wound care center in outpatient basis. Patient noy balized understanding. And questions were answered. Thank you kindly for the consultation. Any questions please contact the wound care center DNP note has been reviewed and discussed with Dr. Dencklau and the impression and plan of care has been directed as dictated.
[2019-12-02] MEDS: METOPROLOL TARTRATE 25 MG TAB PO SCH ×2 (11:26→16:23)
[2019-12-02 11:56] LABS: Glucose,Whole Blood 77 mg/dL (75-99)
[2019-12-02 15:15] LABS: Calcium 9.3 mg/dL (8.4-10.2); Potassium 4.5 mmol/L (3.5-5.1)
--- NOTE | 2019-12-02 15:21 | P.PN ---
Subjective Progress Note Date: 12/02/19 This is a pleasant 79-year-old female past medical history significant for hypertension, diabetes mellitus and is currently being treated with Bactrim for cellulitis. Patient had a recent hospitalization with this and was just discharged home from the hospital. She had an echo performed during that admission which revealed an impaired LV systolic function with an ejection fraction of 40-45%, septal wall motion delay consistent with bundle branch block, mild MR, mild TR, RVSP of 39. Patient presents back to the hospital on this occasion with symptoms of progressively worsening shortness of breath. Chest x-ray on presentation here showed correlation for congestive heart failure. Her EKG showed a sinus rhythm with a left bundle-branch block pattern, occasional PACs. I pressure 188/70 with a heart rate in the 60s, 93% on 4 L of oxygen. White blood cell count 15.1, hemoglobin 12.6, platelet count 299. Sodium 141, potassium 4.5, BUN 34, creatinine 1.1, d-dimer 0.5. BNP.049, BNP level 4610. She was initiated on IV Lasix. Patient's home medications included Glucotrol, Lopressor 25 twice a day, Prinivil 5 mg daily, Synthroid, Lipitor 40 mg daily, baby aspirin daily. 12/02/2019 Patient was seen and examined this morning, pressure continues to be elevated at 197/80, heart rate in the 50s -60s, 96% on room air. Sodium 141, potassium 4.5, BUN 54, creatinine 1.5. Patient is putting out urine, her weight is not reflective of this. We will add some hydralazine and nitrates to the patient's medication regime to try and optimize blood pressure control. Discontinue the metoprolol and start the patient on Coreg. Objective - Vital Signs Vital signs: Vital Signs Temp 96.8 F L 12/02/19 08:31 Pulse 59 L 12/02/19 11:05 Resp 18 12/02/19 11:05 BP 197/80 12/02/19 11:05 Pulse Ox 96 12/02/19 11:05 Intake & Output 12/01/19 12/02/19 12/02/19 18:59 06:59 18:59 Intake Total 120 480 Output Total 200 300 400 Balance -80 -300 80 Weight 77.111 kg 79.9 kg Intake: Oral 120 480 Output: Urine 200 300 400 Other: Voiding Method Bedside Commode Bedside Commode # Voids 1 - Exam CONSTITUTIONAL: No apparent distress. HEENT: Head is normocephalic. Pupils are equal, round. Sclerae anicteric. Mucous membranes of the mouth are moist. Mildly elevated JVP. No carotid bruit. CHEST EXAMINATION: Lungs are clear to auscultation anteriorly with diminished air entry to the bases bilaterally posteriorly. No chest wall tenderness is noted on palpation or with deep breathing. HEART EXAMINATION: Regular rate and rhythm. S1, S2 heard. No murmurs, gallops or rub. ABDOMEN: Soft, nontender. Positive bowel sounds. EXTREMITIES: 2+ peripheral pulses, 2+ lower extremity edema, evidence of discoloration bilaterally, dressing in place to the right lower extremity, cellulitis. NEUROLOGIC EXAMINATION: Patient is awake, alert and oriented x3. - Labs CBC & Chem 7: 12/01/19 09:38 12/01/19 09:38 Labs: Abnormal Lab Results - Last 24 Hours (Table) 12/01/19 12/01/19 12/02/19 Range/Units 16:47 21:15 05:57 POC Glucose (mg/dL) 248 H 208 H 147 H (75-99) mg/dL Microbiology - Last 24 Hours (Table) 12/01/19 09:38 Blood Culture - Preliminary Blood No Growth after 24 hours Assessment and Plan Plan: Assessment and plan #1 systolic congestive heart failure acute on chronic #2 troponin abnormality, not consistent with acute coronary syndrome, no significant rise and fall pattern from recent admission. #3 hypertension, accelerated #4 diabetes #5 cellulitis, on Bactrim Plan Patient just recently had an echo earlier this month which revealed an ejection fraction of 40-45%. We will continue current dose of IV Lasix. Discontinue the metoprolol and start the patient on Coreg, we will also add hydralazine and nitrates, and attempt to optimize blood pressure management. DNP note has been reviewed, I agree with a documented findings and plan of care. Patient was seen and examined.
[2019-12-02] MEDS: CARVEDILOL 6.25 MG TAB PO SCH (16:44)
[2019-12-02] MEDS: ISOSORBIDE MONONITRATE ER 60 MG TAB.ER.24H PO SCH (16:44)
[2019-12-02 16:47] LABS: Glucose,Whole Blood 122 mg/dL (75-99)
[2019-12-02] MEDS: ATORVASTATIN 40 MG TAB PO SCH (20:01)
[2019-12-02] MEDS: hydrALAZINE HCL 25 MG TAB PO SCH (20:01)
[2019-12-02 20:41] LABS: Glucose,Whole Blood 149 mg/dL (75-99)
--- NOTE | 2019-12-03 00:23 | P.HPIM ---
History of Present Illness H&P Date: 12/02/19 Chief Complaint: Short of breath Hospital course: This is a pleasant 79-year-old patient of Dr. Hays was chronic stable medical conditions include diabetes mellitus type 2, hypertension, hypothyroid, polio affecting the right leg, chronic gait dysfunction uses a cane primary osteoarthritis. 2 weeks ago in the hospital with CHF exacerbation, acute kidney injury and venous stasis ulcers on the right lower extremity. Patient now presents with progressive short of breath and increasing lower extremity edema. No increased orthopnea. No chest pain. No fever no chills. No cough. No Sputum production. Review of systems: GEN.: None EYES: None HEENT: None NECK: None RESPIRATORY: As above CARDIOVASCULAR: As above GASTROINTESTINAL: None GENITOURINARY: None MUSCULOSKELETAL: Joint pains LYMPHATICS: None HEMATOLOGICAL: None PSYCHIATRY: None NEUROLOGICAL: None Past medical history to include: Diabetes mellitus type 2, hypertension, hypothyroid, polio affecting the right leg, chronic gait dysfunction uses a cane, primary osteoarthritis, venous also the right lower extremity. Social history: Lives alone. Uses a cane. Does smoke small amounts and the past. Alcohol occasionally. It is a . Family history: Reviewed, noncontributory to presentation Physical examination: VITAL SIGNS: 96.8, 50, 18, 174/67, 100% on 2 L GENERAL: BMI 31.2, laying in bed tired. EYES: Pupils equal. Conjunctiva normal. HEENT: External appearance of nose and ears normal, oral cavity grossly normal. NECK: JVD possibly raise; masses not palpable. HEART: First and second heart sounds are normal; some edema present. LUNGS: Respiratory rate increased, decreased breath sounds. ABDOMEN: Soft, nontender, liver spleen not palpable, no masses palpable. PSYCH: Alert and oriented x3; mood and affect normal EXTREMITY: Also on the right lower extremity dominguez. NEUROLOGICAL: Cranial nerves grossly intact; no facial asymmetry, power and sensation grossly intact. LYMPHATICS: No lymph nodes palpable in the axilla and neck INVESTIGATIONS, reviewed in the clinical context: White count 15.1 hemoglobin 12.6 platelets 209 potassium 4.5 bun 34 creatinine 1.10 ProBNP 4610 troponin 0.04 Chest x-ray film personally reviewed by me-pulmonary edema with left pleural effusion 2-D echo from 11/17/2019-EF 40-45% Assessment: -Acute on chronic congestive heart failure from systolic dysfunction EF 40-45%, with significant pulmonary edema -Chronic lower extremity wound from ruptured blister from venous insufficiency -Diabetes mellitus type 2 -Essential hypertension -Hypothyroid -Polio affecting the right 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 -Primary osteoarthritis especially of the hips Plan: -We will put the patient Lasix drip at least overnight. Follows I's and O's closely. Other medications to continue. Lovenox for DVT prophylaxis. Care was discussed with the patient. Cardiology consult. Past Medical History Past Medical History: Diabetes Mellitus, Hypertension, Osteoarthritis (OA), Thyroid Disorder, Vascular Disorder Additional Past Medical History / Comment(s): Pt recently admitted to [facility] on 11/14/19 with R lower extremity stasis ulcer/wound/cellulitis, abnormal renal function, CHF, hyperkalemia. Other hx: POLIO AT AGE 3 with R leg alittle shorter/weaker and smaller, NIDDM, hypothyroid, anemia, gout bilateral great toes, L hip pain at times d/t OA, occasional lower extremity edema mostly involving R leg History of Any Multi-Drug Resistant Organisms: None Reported Past Surgical History: No Surgical Hx Reported Additional Past Surgical History / Comment(s): RT/LT CATARACT removal with lens implants, I&D L middle finger/abscess. Past Anesthesia/Blood Transfusion Reactions: No Reported Reaction Additional Past Anesthesia/Blood Transfusion Reaction / Comment(s): NEVER HAS HAD GENERAL ANESTHESIA Smoking Status: Former smoker - Past Family History Father Family Medical History: Coronary Artery Disease (CAD), Myocardial Infarction ([place]) Additional Family Medical History / Comment(s): Father at the age of 63 yrs from a [place]. He had alot of family members with CAD. Mother Family Medical History: No Reported History Additional Family Medical History / Comment(s): Mother lived to be 90.5 yrs old. Medications and Allergies Home Medications Medication Instructions Recorded Confirmed Type Aspirin 81 mg PO DAILY 06/25/15 12/01/19 History Fish Oil/Dha/Epa [Fish Oil 1,200 1 cap PO DAILY 06/25/15 12/01/19 History mg Fish Oil] Levothyroxine Sodium [Synthroid] 125 mcg PO DAILY 06/25/15 12/01/19 History glipiZIDE XL [Glucotrol XL] 5 mg PO AC-BRKFST 06/25/15 12/01/19 History Cholecalciferol [Vitamin D3 (25 1,000 unit PO DAILY 06/23/16 12/01/19 History Mcg = 1000 Iu)] Allopurinol [Zyloprim] 100 mg PO DAILY 11/14/19 12/01/19 History Atorvastatin [Lipitor] 40 mg PO HS #30 tab 11/18/19 12/01/19 Rx Lisinopril [Prinivil] 5 mg PO DAILY #0 11/18/19 12/01/19 Rx Metoprolol Tartrate [Lopressor] 25 mg PO BID #60 tab 11/18/19 12/01/19 Rx Allergies Allergy/AdvReac Type Severity Reaction Status Date / Time No Known Allergies Allergy Verified 12/01/19 11:22 Physical Exam Vitals: Vital Signs Temp Pulse Pulse Resp BP BP Pulse Ox 12/02/19 08:35 18 12/02/19 08:31 96.8 F L 50 L 18 174/67 100 12/02/19 06:30 50 L 18 176/74 99 12/02/19 04:00 57 L 18 12/02/19 03:05 98.1 F 57 L 18 137/63 99 12/02/19 00:00 98.2 F 58 L 19 166/70 98 12/01/19 20:00 98.7 F 68 18 173/74 12/01/19 16:00 18 12/01/19 15:42 98.6 F 66 18 187/75 99 12/01/19 14:28 182/79 12/01/19 12:00 97.6 F 67 18 188/77 93 L 12/01/19 11:00 57 L 22 173/68 95 12/01/19 10:30 58 L 22 162/70 94 L Intake and Output 12/01/19 12/02/19 12/02/19 22:59 06:59 14:59 Intake Total 120 240 Output Total 200 100 Balance -80 -100 240 Intake: Oral 120 240 Output: Urine 200 100 Other: Voiding Method Bedside Commode Bedside Commode Bedside Commode Weight 79.9 kg Results CBC & Chem 7: 12/01/19 09:38 12/02/19 14:36 Labs: Abnormal Lab Results - Last 24 Hours (Table) 12/01/19 12/01/19 12/01/19 Range/Units 09:38 16:47 21:15 POC Glucose (mg/dL) 248 H 208 H (75-99) mg/dL Troponin I 0.049 H* (0.000-0.034) ng/mL 12/02/19 Range/Units 05:57 POC Glucose (mg/dL) 147 H (75-99) mg/dL Troponin I (0.000-0.034) ng/mL Thrombosis Risk Factor Assmnt - Choose All That Apply Any of the Below Risk Factors Present?: Yes Each Factor Represents 1 point: Heart failure (<1month), Obesity (BMI >25) Other Risk Factors: Yes Each Risk Factor Represents 3 Points: Age 75 years or older Other congenital or acquired thrombophilia - If yes, enter type in comment: No Thrombosis Risk Factor Assessment Total Risk Factor Score: 5 Thrombosis Risk Factor Assessment Level: High Risk
[2019-12-03 06:10] LABS: Glucose,Whole Blood 83 mg/dL (75-99)
[2019-12-03] MEDS: FUROSEMIDE 100 MG in SODIUM CHLORIDE 0.9% 90 ML IV SCH ×2 (06:35→14:32)
[2019-12-03] MEDS: CARVEDILOL 6.25 MG TAB PO SCH ×2 (06:37→17:03)
[2019-12-03] MEDS: LEVOTHYROXINE 125 MCG TAB PO SCH (06:38)
[2019-12-03 06:48] LABS: Calcium 9.4 mg/dL (8.4-10.2); Potassium 4.8 mmol/L (3.5-5.1)
[2019-12-03] MEDS: ASPIRIN 81 MG PO SCH (10:47)
[2019-12-03] MEDS: ALLOPURINOL 100 MG TAB PO SCH (10:47)
[2019-12-03] MEDS: CHOLECALCIFEROL 1,000 UNIT TAB PO SCH (10:49)
[2019-12-03] MEDS: hydrALAZINE HCL 25 MG TAB PO SCH ×2 (10:50→21:35)
[2019-12-03] MEDS: LISINOPRIL 10 MG TAB PO SCH (10:53)
[2019-12-03] MEDS: ISOSORBIDE MONONITRATE ER 60 MG TAB.ER.24H PO SCH (10:53)
[2019-12-03 11:45] LABS: Glucose,Whole Blood 140 mg/dL (75-99)
--- NOTE | 2019-12-03 11:57 | CDI ---
Documentation Clarification Form Date: 12/03/2019 11:26:53 AM From: Dulce Oliva RN, CCDS Admit Date: 12/01/2019 11:08:00 AM Patient Name: Marisa Murphy Visit Number: [id number] Discharge Date: ATTENTION: The Clinical Documentation Specialists (CDI) and [facility] Coding Staff appreciate your assistance in clarifying documentation. Please respond to the clarification below the line at the bottom and electronically sign. The CDI & [facility] Coding staff will review the response and follow-up if needed. Please note: Queries are made part of the Legal Health Record. If you have any questions, please contact the author of this message via ITS. Dr. Suresh Poon Conflicting documentation has been found in the medical record and further clarification is indicated. 12/01/19 09:17 ER evaluation has hypertension urgency, with blood pressure 216/117, heart rate 79. His blood pressure at 09:39 was 222/138, and he was treated with Lebetalol HCL 20 MG IVP once stat at 09:21. 12/01/19 15:27 Cardiology consult assessment, (Dr. Berry): Hypertension, accelerated. Plan: Adjust blood pressure medication to optimize blood control. 12/02/19 H/P (Dr. Poon): Essential hypertension. Plan Lasix drip (for congestive heart failure), other medication to continue. History/Risk Factors: Hypertension, Diabetes mellitus type 2, Congestive heart failure, systolic Clinical Indicators: 79-year-old female who presented on 12/01/19 with shortness of breath. Patient received hydralazine for her hypertensive urgency that didn't bring down the blood pressure, and was given Lebatolol IV per ER documentations and medication records. Treatment: Labetalos Hcl 20 mg IVP ONCE STAT (12/01/19 @ 09:21) Lasix 40mg IV ONCE STAT (12/01/19 @10:37) for CHF Nitro-Bid Oint 1 inch Topical once Stat (12/01/19 10:37) for CHF In your opinion, what is the most clinically appropriate diagnosis for this patient? Hypertensive Urgency Essential Hypertension Other explanation of clinical findings Unable to determine (no explanation for clinical findings) (Last Revision: February 2018) Hypertensive urgency MTDD
--- NOTE | 2019-12-03 15:13 | P.PN ---
Subjective This is Chanell Weaver PA-C dictating a progress note on this patient The patient was interviewed and examined by me as well as by Dr. Berry Case discussed with Dr. Berry and he agrees with the plan of care IMPRESSION / ASSESSMENT: Acute on chronic systolic CHF, EF 40-45%, diuresing on IV Lasix, symptoms improving Hypertension, blood pressure improving Diabetes Cellulitis, on Bactrim PLAN: In view of her rising BUN and creatinine and improving symptoms, discontinue IV Lasix drip and start IV Lasix 40 mg every 12 hours Continue hydralazine and Imdur Continue lisinopril Continue Coreg Continue aspirin and Lipitor HPI/interval history Patient is an 79-year-old female with past medical history of hypertension, and diabetes and cardiomyopathy who presented with complaints of progressive shortness of breath. He was also being treated for cellulitis. She was started on IV Lasix drip. Yesterday we switched her to Coreg and started her on hydralazine and Imdur. Her blood pressure seems to have improved. She is diuresing. Patient seen and examined sitting up in the chair. States her breathing has significantly improved. She has not is short of breath when she gets up and walks. She was able to sleep lying flat comfortably. No chest pain or dizziness. EXAMINATION Patient is afebrile, pulse in the 50s, respirations 16, blood pressure 121/54, oxygen saturation 96% on room air Patient seen and examined sitting in the chair, appears comfortable, in no acute distress Lungs clear to auscultation bilaterally Heart is regular, no audible murmurs Right leg dressing in place REVIEW OF LABS, ECG Potassium 4.8, BUN 62, creatinine 1.75 Objective - Vital Signs Vital signs: Vital Signs Temp 97.9 F 12/03/19 11:41 Pulse 96 12/03/19 11:41 Resp 16 12/03/19 11:41 BP 121/54 12/03/19 11:41 Pulse Ox 96 12/03/19 11:41 Intake & Output 12/02/19 12/03/19 12/03/19 18:59 06:59 18:59 Intake Total 720 439.5 Output Total 400 1800 500 Balance 320 -1800 -60.5 Weight 77.7 kg Intake: Intake, IV Titration 79.5 Amount Furosemide 100 mg In 79.5 Sodium Chloride 0.9% 90 ml @ 10 MG/HR 10 mls/hr IV .Q10H [facility] Rx#: [id number] Oral 720 360 Output: Urine 400 1800 500 Other: Voiding Method Bedside Commode Bedside Commode Toilet # Voids 1 3 - Labs CBC & Chem 7: 12/01/19 09:38 12/03/19 05:52 Labs: Abnormal Lab Results - Last 24 Hours (Table) 12/02/19 12/02/19 12/02/19 Range/Units 14:36 16:40 20:39 Carbon Dioxide (22-30) mmol/L BUN 54 H (7-17) mg/dL Creatinine 1.53 H (0.52-1.04) mg/dL Glucose 132 H (74-99) mg/dL POC Glucose (mg/dL) 122 H 149 H (75-99) mg/dL 12/03/19 12/03/19 Range/Units 05:52 11:44 Carbon Dioxide 33 H (22-30) mmol/L BUN 62 H (7-17) mg/dL Creatinine 1.75 H (0.52-1.04) mg/dL Glucose (74-99) mg/dL POC Glucose (mg/dL) 140 H (75-99) mg/dL Microbiology - Last 24 Hours (Table) 12/01/19 09:38 Blood Culture - Preliminary Blood No Growth after 48 hours
[2019-12-03 16:43] LABS: Glucose,Whole Blood 93 mg/dL (75-99)
[2019-12-03] MEDS ORDERED: DILTIAZEM DRIP BOLUS FROM BAG 1 MG SOLN IV ONE (18:17)
[2019-12-03] MEDS ORDERED: HEPARIN SODIUM,PORCINE 5,000 UNIT/ML 1 ML VIAL IV ONE (18:24)
[2019-12-03] MEDS ORDERED: HEPARIN SODIUM,PORCINE 5,000 UNIT/ML 1 ML VIAL IV PRN (18:24)
[2019-12-03] MEDS ORDERED: HEPARIN SOD,PORK IN 0.45% NACL 25,000 UNIT in 0.45% NACL 1 250ML.BAG IV SCH (18:30)
[2019-12-03] MEDS: DILTIAZEM 125 MG in SODIUM CHLORIDE 0.9% 100 ML IV SCH (19:09)
[2019-12-03 19:28] LABS: Basophils % (A) 0 %; Eosinophils # (A) 0.2 k/uL (0-0.7); Eosinophils % (A) 1 %; HCT 36.5 % (34.0-46.0); HGB 11.9 gm/dL (11.4-16.0); Lymphocytes # (A) 1.4 k/uL (1.0-4.8); Lymphocytes % (A) 12 %; MCH 30.9 pg (25.0-35.0); MCHC 32.6 g/dL (31.0-37.0); MCV 94.8 fL (80.0-100.0); Mean Platelet Volume 7.6; Monocytes # (A) 0.6 k/uL (0-1.0); Monocytes % (A) 5 %; Neutrophils # (A) 9.3 k/uL (1.3-7.7); Neutrophils % (A) 80 %; Platelet Count 252 k/uL (150-450); RBC 3.85 m/uL (3.80-5.40); RDW 15.7 % (11.5-15.5); WBC 11.7 k/uL (3.8-10.6)
[2019-12-03 19:36] LABS: INR 1.1 (<1.2); Partial Thromboplastin Time 24.2 sec (22.0-30.0); Prothrombin Time 10.8 sec (9.0-12.0)
[2019-12-03 20:42] LABS: Glucose,Whole Blood 251 mg/dL (75-99)
[2019-12-03] MEDS: FUROSEMIDE 10 MG/ML 4 ML VIAL IV SCH (21:35)
[2019-12-03] MEDS: ATORVASTATIN 40 MG TAB PO SCH (21:35)
--- NOTE | 2019-12-04 01:08 | P.PN ---
Progress Note - Text Progress Note Date: 12/03/19 Chief Complaint: Short of breath History of presenting complaint: This is a pleasant 79-year-old patient of Dr. Hays was chronic stable medical conditions include diabetes mellitus type 2, hypertension, hypothyroid, polio affecting the right leg, chronic gait dysfunction uses a cane primary osteoarthritis. 2 weeks ago in the hospital with CHF exacerbation, acute kidney injury and venous stasis ulcers on the right lower extremity. Patient now presents with progressive short of breath and increasing lower extremity edema. No increased orthopnea. No chest pain. No fever no chills. No cough. No Sputum production. Hospital course: Admitted with acute CHF exacerbation with EF of 40-45%. Started on Lasix drip. Today-on Lasix drip. Did diurese well. Breathing better. Appetite improving. Family the bedside. Review of systems: Was done for constitutional, cardiovascular, GI, pulmonary. relevant finding as above Active Medications Allopurinol (Zyloprim) 100 mg PO DAILY [facility] Last Admin: 12/03/19 10:47 Dose: 100 mg Documented by: Aspirin (Aspirin) 81 mg PO DAILY [facility] Last Admin: 12/03/19 10:47 Dose: 81 mg Documented by: Atorvastatin Calcium (Lipitor) 40 mg PO HS [facility] Last Admin: 12/03/19 21:35 Dose: 40 mg Documented by: Carvedilol (Coreg) 6.25 mg PO BID-W/MEALS [facility] Last Admin: 12/03/19 17:03 Dose: 6.25 mg Documented by: Cholecalciferol (Vitamin D3 (25 Mcg = 1000 Iu)) 1,000 unit PO DAILY [facility] Last Admin: 12/03/19 10:49 Dose: 1,000 unit Documented by: Furosemide (Lasix) 40 mg IV Q12HR [facility] Last Admin: 12/03/19 21:35 Dose: 40 mg Documented by: Glipizide (Glucotrol) 2.5 mg PO BID [facility] Last Admin: 12/03/19 21:35 Dose: 2.5 mg Documented by: Heparin Sodium (Porcine) (Heparin) 0 unit IV PER PROTOCOL PRN; Protocol PRN Reason: Low PTT Hydralazine HCl (Apresoline) 25 mg PO BID [facility] Last Admin: 12/03/19 21:35 Dose: 25 mg Documented by: Diltiazem HCl 125 mg/ Sodium (Chloride) 125 mls @ 7.5 mls/hr IV .[id number] [facility] Last Admin: 12/03/19 19:09 Dose: 7.5 mg/hr, 7.5 mls/hr Documented by: Heparin Sodium/Sodium Chloride (25,000 unit/ Sodium Chloride) 250 mls @ 9.324 mls/hr IV .Q24H [facility]; Protocol Last Admin: 12/03/19 19:10 Dose: 12 units/kg/hr, 9.324 mls/hr Documented by: Isosorbide Mononitrate (Imdur) 60 mg PO DAILY [facility] Last Admin: 12/03/19 10:53 Dose: 60 mg Documented by: Levothyroxine Sodium (Synthroid) 125 mcg PO DAILY@0630 [facility] Last Admin: 12/03/19 06:38 Dose: 125 mcg Documented by: Lisinopril (Zestril) 10 mg PO DAILY [facility] Last Admin: 12/03/19 10:53 Dose: 10 mg Documented by: Physical examination: VITAL SIGNS: 97.4, 96, 16, 121/54, 96% on room air GENERAL: Sitting up in a chair, looking better EYES: Pupils equal. Conjunctiva normal. HEENT: External appearance of nose and ears normal, oral cavity grossly normal. NECK: JVD raised; masses not palpable. HEART: First and second heart sounds are normal; some edema present. LUNGS: Respiratory rate increased, decreased breath sounds. ABDOMEN: Soft, nontender, liver spleen not palpable, no masses palpable. PSYCH: Alert and oriented x3; mood and affect normal EXTREMITY: Also on the right lower extremity dominguez. INVESTIGATIONS, reviewed in the clinical context: Potassium 4.8 bun 62 creatinine 1.75 white count 11.7 platelets 252 White count 15.1 hemoglobin 12.6 platelets 209 potassium 4.5 bun 34 creatinine 1.10 ProBNP 4610 troponin 0.04 Chest x-ray film personally reviewed by me-pulmonary edema with left pleural effusion 2-D echo from 11/17/2019-EF 40-45% Assessment: -Acute on chronic congestive heart failure from systolic dysfunction EF 40-45%, with clinical improvement. -Acute kidney injury likely prerenal from diuresis -Chronic lower extremity wound from ruptured blister from venous insufficiency -Diabetes mellitus type 2 -Essential hypertension -Hypothyroid -Polio affecting the right 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 -Primary osteoarthritis especially of the hips Plan: Creatinine is going up. Clinically looks better. We'll DC the Lasix drip this evening. Depending on the clinical status and lab work will assess in the morning. Repeat chest x-ray. In the morning
[2019-12-04] MEDS: CARVEDILOL 6.25 MG TAB PO SCH ×2 (06:30→19:56)
[2019-12-04] MEDS: LEVOTHYROXINE 125 MCG TAB PO SCH (06:30)
[2019-12-04 06:33] LABS: Glucose,Whole Blood 139 mg/dL (75-99)
[2019-12-04] MEDS: ASPIRIN 81 MG PO SCH (08:24)
[2019-12-04] MEDS: hydrALAZINE HCL 25 MG TAB PO SCH ×2 (08:24→20:14)
[2019-12-04] MEDS: ALLOPURINOL 100 MG TAB PO SCH (08:24)
[2019-12-04] MEDS: CHOLECALCIFEROL 1,000 UNIT TAB PO SCH (08:24)
[2019-12-04] MEDS: FUROSEMIDE 10 MG/ML 4 ML VIAL IV SCH (08:25)
--- NOTE | 2019-12-04 08:50 | XR ---
EXAMINATION TYPE: XR chest 2V DATE OF EXAM: 12/04/2019 COMPARISON: 12/01/2019 TECHNIQUE: PA and lateral views submitted. HISTORY: Shortness of breath FINDINGS: Bilateral infiltrate and pleural effusion. Interstitial pattern and cardiomegaly noted. Atherosclerot ic change aorta. Findings are similar to the prior exam. Osseous structures stable. IMPRESSION: 1. Correlate for CHF otherwise consider diffuse pneumonia.
[2019-12-04 09:30] LABS: Basophils % (A) 0 %; Eosinophils # (A) 0.1 k/uL (0-0.7); Eosinophils % (A) 1 %; HCT 32.5 % (34.0-46.0); HGB 10.9 gm/dL (11.4-16.0); Lymphocytes # (A) 1.4 k/uL (1.0-4.8); Lymphocytes % (A) 13 %; MCH 31.6 pg (25.0-35.0); MCHC 33.5 g/dL (31.0-37.0); MCV 94.2 fL (80.0-100.0); Mean Platelet Volume 7.7; Monocytes # (A) 0.6 k/uL (0-1.0); Monocytes % (A) 5 %; Neutrophils # (A) 8.4 k/uL (1.3-7.7); Neutrophils % (A) 78 %; Platelet Count 213 k/uL (150-450); RBC 3.45 m/uL (3.80-5.40); RDW 15.8 % (11.5-15.5); WBC 10.8 k/uL (3.8-10.6)
[2019-12-04 09:50] LABS: Calcium 8.8 mg/dL (8.4-10.2); Potassium 4.4 mmol/L (3.5-5.1)
[2019-12-04 11:46] LABS: Glucose,Whole Blood 111 mg/dL (75-99)
[2019-12-04] MEDS: ISOSORBIDE MONONITRATE ER 60 MG TAB.ER.24H PO SCH (11:55)
[2019-12-04] MEDS: LISINOPRIL 10 MG TAB PO SCH (11:55)
--- NOTE | 2019-12-04 13:00 | P.PN ---
Subjective Patient is doing better. She is sitting up in bed comfortably.3 distress no chest pain Labs are reviewed sodium 139 potassium 4.4 BUN 77 creatinine 1.77 BUN and creatinine show rising trend Heart sounds are regular No murmurs or gallop. No JVD Breath sounds decreased bilaterally Mild lower extremity edema She is afebrile 97.67F also rate in the 50s blood pressure 106/48. His mercury Impression Mild LV systolic dysfunction congestive heart failure Chronic kidney disease with rising BUN and creatinine on IV Lasix Suggest Stop IV Lasix and switch to by mouth Lasix 40 mg by mouth daily Objective - Vital Signs Vital signs: Vital Signs Temp 97.6 F 12/04/19 07:58 Pulse 55 L 12/04/19 07:58 Resp 16 12/04/19 07:58 BP 106/48 12/04/19 08:10 Pulse Ox 95 12/04/19 07:58 Intake & Output 12/03/19 12/04/19 12/04/19 18:59 06:59 18:59 Intake Total 559.5 64.802 360 Output Total 500 1600 Balance 59.5 64.802 -1240 Weight 77.3 kg Intake: Intake, IV Titration 79.5 64.802 Amount Furosemide 100 mg In 79.5 Sodium Chloride 0.9% 90 ml @ 10 MG/HR 10 mls/hr IV .Q10H [facility] Rx#: [id number] Heparin Sod,Pork in 0.45% 64.802 NaCl 25,000 unit In 0.45 % NaCl 1 250ml.bag @ 12 UNITS/KG/HR 9.324 mls/hr IV .Q24H [facility] Rx#: [id number] Oral 480 360 Output: Urine 500 1600 Other: Voiding Method Toilet Toilet # Voids 0 # Bowel Movements 0 - Labs CBC & Chem 7: 12/04/19 08:57 12/04/19 08:57 Labs: Abnormal Lab Results - Last 24 Hours (Table) 12/03/19 12/03/19 12/04/19 Range/Units 19:15 20:39 01:13 WBC 11.7 H (3.8-10.6) k/uL RBC (3.80-5.40) m/uL Hgb (11.4-16.0) gm/dL Hct (34.0-46.0) % RDW 15.7 H (11.5-15.5) % Neutrophils # 9.3 H (1.3-7.7) k/uL APTT 136.7 H* (22.0-30.0) sec Chloride (98-107) mmol/L Carbon Dioxide (22-30) mmol/L BUN (7-17) mg/dL Creatinine (0.52-1.04) mg/dL Glucose (74-99) mg/dL POC Glucose (mg/dL) 251 H (75-99) mg/dL 12/04/19 12/04/19 12/04/19 Range/Units 06:31 08:57 08:57 WBC 10.8 H (3.8-10.6) k/uL RBC 3.45 L (3.80-5.40) m/uL Hgb 10.9 L (11.4-16.0) gm/dL Hct 32.5 L (34.0-46.0) % RDW 15.8 H (11.5-15.5) % Neutrophils # 8.4 H (1.3-7.7) k/uL APTT (22.0-30.0) sec Chloride 97 L (98-107) mmol/L Carbon Dioxide 32 H (22-30) mmol/L BUN 77 H (7-17) mg/dL Creatinine 1.77 H (0.52-1.04) mg/dL Glucose 130 H (74-99) mg/dL POC Glucose (mg/dL) 139 H (75-99) mg/dL 12/04/19 12/04/19 Range/Units 08:57 11:43 WBC (3.8-10.6) k/uL RBC (3.80-5.40) m/uL Hgb (11.4-16.0) gm/dL Hct (34.0-46.0) % RDW (11.5-15.5) % Neutrophils # (1.3-7.7) k/uL APTT 49.2 H (22.0-30.0) sec Chloride (98-107) mmol/L Carbon Dioxide (22-30) mmol/L BUN (7-17) mg/dL Creatinine (0.52-1.04) mg/dL Glucose (74-99) mg/dL POC Glucose (mg/dL) 111 H (75-99) mg/dL Microbiology - Last 24 Hours (Table) 12/01/19 09:38 Blood Culture - Preliminary Blood No Growth after 72 hours
[2019-12-04 17:10] LABS: Glucose,Whole Blood 119 mg/dL (75-99)
[2019-12-04] MEDS: DILTIAZEM 125 MG in SODIUM CHLORIDE 0.9% 100 ML IV SCH (19:24)
[2019-12-04 20:08] LABS: Glucose,Whole Blood 171 mg/dL (75-99)
[2019-12-04] MEDS: APIXABAN 2.5 MG TABLET PO SCH (20:14)
[2019-12-04] MEDS: ATORVASTATIN 40 MG TAB PO SCH (20:14)
[2019-12-05] MEDS: LEVOTHYROXINE 125 MCG TAB PO SCH (06:07)
[2019-12-05] MEDS: CARVEDILOL 6.25 MG TAB PO SCH (06:07)
[2019-12-05 06:18] LABS: Glucose,Whole Blood 83 mg/dL (75-99)
[2019-12-05 08:51] VITALS: BP 107/52; PULSE 62; RESP 16; TEMP 97.4
[2019-12-05] MEDS: LISINOPRIL 10 MG TAB PO SCH (08:51)
[2019-12-05] MEDS: APIXABAN 2.5 MG TABLET PO SCH (08:51)
[2019-12-05] MEDS: hydrALAZINE HCL 25 MG TAB PO SCH (08:51)
[2019-12-05] MEDS: ASPIRIN 81 MG PO SCH (08:51)
[2019-12-05] MEDS: ALLOPURINOL 100 MG TAB PO SCH (08:52)
[2019-12-05] MEDS: ISOSORBIDE MONONITRATE ER 60 MG TAB.ER.24H PO SCH (08:52)
[2019-12-05] MEDS: CHOLECALCIFEROL 1,000 UNIT TAB PO SCH (08:52)
[2019-12-05] MEDS ORDERED: FUROSEMIDE 40 MG TAB PO SCH (09:00)
--- NOTE | 2019-12-05 13:08 | P.PN ---
Subjective This is Chanell Weaver PA-C dictating a progress note on this patient The patient was interviewed and examined by me as well as by Dr. Berry Case discussed with Dr. Berry and he agrees with the plan of care HPI/interval history Patient is an 79-year-old female with past medical history of hypertension, and diabetes and cardiomyopathy who presented with complaints of progressive shortness of breath. He was admitted for treatment of CHF exacerbation. She was switched from metoprolol to Coreg and also started on isosorbide She has diuresed on Lasix and is feeling much better. She did have an episode of atrial fibrillation and was started on eliquis. Patient seen and examined sitting in her chair. States her shortness of breath has completely resolved. She has been getting up walking around without any difficulty. EXAMINATION She is afebrile, pulse is 60s, respirations 16, blood pressure 10 607/52, oxygen saturation 95% on room air Patient was using a chair, in no acute distress heart is regular, no audible murmurs Lungs clear to auscultation bilaterally REVIEW OF LABS, ECG WBC 10.8, hemoglobin 10.9, platelets 213, potassium 4.4, BUN 77, creatinine 1.7 IMPRESSION / ASSESSMENT: Paroxysmal atrial fibrillation, Anticoagulated with eliquis Acute on chronic systolic CHF, EF 40-45%, symptoms improved Hypertension, blood pressure improving Diabetes DIANE Cellulitis, on Bactrim PLAN: From a cardiology standpoint she is stable for discharge She should be sent home on Coreg 6.25 twice a day, isosorbide, lisinopril, Lasix 40 mg PO, eliquis, aspirin and atorvastatin Objective - Vital Signs Vital signs: Vital Signs Temp 97.4 F L 12/05/19 08:51 Pulse 62 12/05/19 08:51 Resp 16 12/05/19 08:51 BP 107/52 12/05/19 08:51 Pulse Ox 95 12/05/19 08:51 Intake & Output 12/04/19 12/05/19 12/05/19 18:59 06:59 18:59 Intake Total 600 240 Output Total 2400 Balance -1800 240 Weight 77.4 kg Intake: Oral 600 240 Output: Urine 2400 Other: Voiding Method Toilet Toilet # Voids 0 1 # Bowel Movements 1 - Labs CBC & Chem 7: 12/04/19 08:57 12/04/19 08:57 Labs: Abnormal Lab Results - Last 24 Hours (Table) 12/04/19 12/04/19 Range/Units 17:06 20:06 POC Glucose (mg/dL) 119 H 171 H (75-99) mg/dL Microbiology - Last 24 Hours (Table) 12/01/19 09:38 Blood Culture - Preliminary Blood No Growth after 96 hours
--- NOTE | 2019-12-05 15:25 | P.DS ---
Providers Date of admission: 12/01/19 11:08 Expected date of discharge: 12/05/19 Attending physician: Suresh Poon Consults: 12/01/19 11:08 Consult Physician Routine Consulting Provider: [facility] Consult Reason/Comments: Acute pulmonary edema, hypertensive urgency Do you want consulting provider notified?: Yes Primary care physician: Tello Hays [facility] Hospital Course: Chief Complaint: Short of breath Hospital course: This is a pleasant 79-year-old patient of Dr. Hays, chronic stable medical conditions include diabetes mellitus type 2, hypertension, hypothyroid, polio affecting the right leg, chronic gait dysfunction uses a cane primary osteoarthritis. 2 weeks ago in the hospital with CHF exacerbation, acute kidney injury and venous stasis ulcers on the right lower extremity. Patient now presents with progressive short of breath and increasing lower extremity edema. No increased orthopnea. No chest pain. No fever no chills. No cough. No Sputum production. Hospital course: Admitted with acute CHF exacerbation with EF of 40-45%. Started on Lasix drip. Today-Feeling much better. Breathing much improved. Starting a diet. Looking forward to go home. BMP in 3 days Consultation: Dr. Giorgio Berry from cardiology Physical examination: VITAL SIGNS: 97.7, 58, 18, 106/48, 95% on room air GENERAL: Sitting up in a chair, comfortable EYES: Pupils equal. Conjunctiva normal. HEENT: External appearance of nose and ears normal, oral cavity grossly normal. NECK: JVD raised; masses not palpable. HEART: First and second heart sounds are normal; some edema present. LUNGS: Respiratory rate normal,, decreased breath sounds. ABDOMEN: Soft, nontender, liver spleen not palpable, no masses palpable. PSYCH: Alert and oriented x3; mood and affect normal EXTREMITY: Superficial wound on the right lower extremity dominguez. INVESTIGATIONS, reviewed in the clinical context: White count 10.8 hemoglobin 10.9 potassium 4.4 bun 77 creatinine 1.77 Previous testing Potassium 4.8 bun 62 creatinine 1.75 white count 11.7 platelets 252 White count 15.1 hemoglobin 12.6 platelets 209 potassium 4.5 bun 34 creatinine 1.10 ProBNP 4610 troponin 0.04 Chest x-ray film personally reviewed by me-pulmonary edema with left pleural effusion 2-D echo from 11/17/2019-EF 40-45% Assessment: -Acute on chronic congestive heart failure from systolic dysfunction EF 40-45%, with clinical improvement. -Acute kidney injury likely prerenal from diuresis -Chronic lower extremity wound from ruptured blister from venous insufficiency -Diabetes mellitus type 2 -Essential hypertension -Hypothyroid -Polio affecting the right 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 -Primary osteoarthritis especially of the hips Disposition: Home Patient Condition at Discharge: Stable Plan - Discharge Summary Discharge Rx Participant: No New Discharge Prescriptions: New Carvedilol [Coreg] 6.25 mg PO BID-W/MEALS #60 tab Isosorbide Mononitrate ER [Imdur] 60 mg PO DAILY #60 tab.er.24h Furosemide [Lasix] 40 mg PO DAILY #30 tab Apixaban [Eliquis] 2.5 mg PO BID #60 tab Continue Aspirin 81 mg PO DAILY glipiZIDE XL [Glucotrol XL] 5 mg PO AC-BRKFST Levothyroxine Sodium [Synthroid] 125 mcg PO DAILY Fish Oil/Dha/Epa [Fish Oil 1,200 mg Fish Oil] 1 cap PO DAILY Cholecalciferol [Vitamin D3 (25 Mcg = 1000 Iu)] 1,000 unit PO DAILY Allopurinol [Zyloprim] 100 mg PO DAILY Atorvastatin [Lipitor] 40 mg PO HS #30 tab Lisinopril [Prinivil] 5 mg PO DAILY #0 Discontinued Metoprolol Tartrate [Lopressor] 25 mg PO BID #60 tab Discharge Medication List Aspirin 81 mg PO DAILY 06/25/15 [History] Fish Oil/Dha/Epa [Fish Oil 1,200 mg Fish Oil] 1 cap PO DAILY 06/25/15 [History] Levothyroxine Sodium [Synthroid] 125 mcg PO DAILY 06/25/15 [History] glipiZIDE XL [Glucotrol XL] 5 mg PO AC-BRKFST 06/25/15 [History] Cholecalciferol [Vitamin D3 (25 Mcg = 1000 Iu)] 1,000 unit PO DAILY 06/23/16 [History] Allopurinol [Zyloprim] 100 mg PO DAILY 11/14/19 [History] Atorvastatin [Lipitor] 40 mg PO HS #30 tab 11/18/19 [Rx] Lisinopril [Prinivil] 5 mg PO DAILY #0 11/18/19 [Rx] Apixaban [Eliquis] 2.5 mg PO BID #60 tab 01/23/20 [Rx] Carvedilol [Coreg] 6.25 mg PO BID-W/MEALS #60 tab 12/04/19 [Rx] Furosemide [Lasix] 40 mg PO DAILY #30 tab 12/04/19 [Rx] Isosorbide Mononitrate ER [Imdur] 60 mg PO DAILY #60 tab.er.24h 12/04/19 [Rx] Follow up Appointment(s)/Referral(s): Tello Hays DO [Primary Care Provider] - 12/15/19 11:20 am Krishna Shrestha DO [STAFF PHYSICIAN] - (Kidney specialist- Please follow up with patient transition specialist from previous follow up appointment. 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 Weigh yourself every morning after you urinate. If you gain 2-3 pounds overnight or 5 pounds in one week, call your primary physician for guidance on your medications. Keep a log of your weights. 2. Avoid salt, or foods with hidden salt. Extra salt makes your heart work harder and traps the fluid in your body for longer. 3. Take all of your medications as directed, especially your water pills. NEVER skip a dose. 4. Elevate your legs when you are not up moving around to help with circulation and prevent swelling. 5. Call your physician if you notice any extra swelling in your legs, ankles, feet or abdomen, if you have a new dry cough, if your shortness of breath worsens with activity or at rest, or if you feel more fatigued. Discharge Disposition: HOME WITH HOME HEALTH SERVICES
--- NOTE | 2019-12-10 11:16 | CDI ---
Documentation Clarification Form Date: 12/07/19 From: Emilia Starr Phone: If you have a question about this query, please contact Peggy Ordoenz, Sweatband Maker at [phone] between 8am and 5pm. Admit Date: 12/01/19 Discharge Date: 12/05/19 Patient Name: Marisa Murphy Visit Number: [id number] ATTENTION: The Clinical Documentation Specialists (CDI) and [facility] Coding Staff appreciate your assistance in clarifying documentation. Please respond to the clarification below the line at the bottom and electronically sign. The CDI & [facility] Coding staff will review the response and follow-up if needed. Please note: Queries are made part of the Legal Health Record. If you have any questions, please contact the author of this message via ITS. Dear Dr. Suresh Poon, Patient was admitted with acute on chronic systolic CHF w HTN and chronic kidney disease. History/Risk Factors: DM T2, venous stasis ulcer of right leg, Clinical Indicators: Hypertensive urgency, CKD, DIANE BUN: 34, 54, 62, 77 CR: 1.10, 1.53, 1.75, 177 GFR: 47, 32, 27, 27 Treatment: IV Lasix, IV fluids on 12/03 In order to capture the severity of condition, please clarify if the condition signifies: CKD ruled out CKD Stage 1 (GFR > 90) CKD Stage 2 (GFR 60-89) CKD Stage 3 (GFR 30-59) CKD Stage 4 (GFR 15-29) CKD Stage 5 (GFR <15) ESRD Other, please specify Unable to determine CK disease stage III, MTDD
== END 2019-12-05 10:54 | disposition home health service (06) | DRG 291 ==
LOC: EC 09:17 → 3SCARD 11:08
PROVIDERS: ADMIT Hospitalist; ATTEND Hospitalist
DX: I13.0 Hypertensive heart and chronic kidney disease with heart failure and stage 1 through stage 4 chronic kidney disease, or unspecified chronic kidney disease (principal); I50.23 Acute on chronic systolic (congestive) heart failure; N17.9 Acute kidney failure, unspecified; L03.115 Cellulitis of right lower limb; L97.911 Non-pressure chronic ulcer of unspecified part of right lower leg limited to breakdown of skin; I83.019 Varicose veins of right lower extremity with ulcer of unspecified site; I42.9 Cardiomyopathy, unspecified; E11.22 Type 2 diabetes mellitus with diabetic chronic kidney disease; D64.9 Anemia, unspecified; N18.3 Chronic kidney disease, stage 3 (moderate); I48.0 Paroxysmal atrial fibrillation; E11.622 Type 2 diabetes mellitus with other skin ulcer; I16.0 Hypertensive urgency; M10.9 Gout, unspecified; I44.7 Left bundle-branch block, unspecified; I08.1 Rheumatic disorders of both mitral and tricuspid valves; E03.9 Hypothyroidism, unspecified; M25.552 Pain in left hip; B91 Sequelae of poliomyelitis; R26.9 Unspecified abnormalities of gait and mobility; M16.0 Bilateral primary osteoarthritis of hip; R79.89 Other specified abnormal findings of blood chemistry; Z79.82 Long term (current) use of aspirin; Z79.84 Long term (current) use of oral hypoglycemic drugs; Z79.890 Hormone replacement therapy; Z79.899 Other long term (current) drug therapy; Z87.891 Personal history of nicotine dependence; Z98.42 Cataract extraction status, left eye; Z98.41 Cataract extraction status, right eye; Z96.1 Presence of intraocular lens; Z82.49 Family history of ischemic heart disease and other diseases of the circulatory system
CPT/HCPCS: 36415; 71046; 80048; 80053; 83605; 83735; 83880; 84484; 85025; 85379; 85610; 85730; 87040; 93005; 94760; 96374; 96375; 99291

== ENCOUNTER 2020-01-05 13:49 | Inpatient (IN) | payer MEDICARE, OTHER ==
--- NOTE | 2020-01-05 14:46 | ED ---
General Adult HPI - General Chief complaint: Weakness Stated complaint: Weakness Time Seen by Provider: 01/05/20 14:11 Source: patient, RN notes reviewed, old records reviewed Mode of arrival: EMS Limitations: no limitations - History of Present Illness Initial comments: 79-year-old female presenting with generalized weakness. History of polio with residual right leg weakness, history of osteoarthritis in the left hip. Patient had gone use restroom at approximately 9 AM, she was unable to stand from.. Ultimately had called paramedics for left assessed. She's had increasing generalized weakness and currently is living alone. She denies headache denies chest pain complains of mild exertional dyspnea. Denies abdominal pain nausea vomiting. No diarrhea. No dysuria or hematuria. No new focal numbness or weakness. She also complains of bilateral lower extremity swelling and bulla on the left leg. - Related Data Home Medications Medication Instructions Recorded Confirmed Aspirin 81 mg PO DAILY 06/25/15 12/01/19 Fish Oil/Dha/Epa [Fish Oil 1,200 1 cap PO DAILY 06/25/15 12/01/19 mg Fish Oil] Levothyroxine Sodium [Synthroid] 125 mcg PO DAILY 06/25/15 12/01/19 glipiZIDE XL [Glucotrol XL] 5 mg PO AC-BRKFST 06/25/15 12/01/19 Cholecalciferol [Vitamin D3 (25 1,000 unit PO DAILY 06/23/16 12/01/19 Mcg = 1000 Iu)] Allopurinol [Zyloprim] 100 mg PO DAILY 11/14/19 12/01/19 Previous Rx's Medication Instructions Recorded Atorvastatin [Lipitor] 40 mg PO HS #30 tab 11/18/19 Lisinopril [Prinivil] 5 mg PO DAILY #0 11/18/19 Apixaban [Eliquis] 2.5 mg PO BID #60 tab 12/04/19 Carvedilol [Coreg] 6.25 mg PO BID-W/MEALS #60 tab 12/04/19 Furosemide [Lasix] 40 mg PO DAILY #30 tab 12/04/19 Isosorbide Mononitrate ER [Imdur] 60 mg PO DAILY #60 tab.er.24h 12/04/19 Allergies Allergy/AdvReac Type Severity Reaction Status Date / Time No Known Allergies Allergy Verified 01/05/20 17:11 Review of Systems ROS Statement: Those systems with pertinent positive or pertinent negative responses have been documented in the HPI. ROS Other: All systems not noted in ROS Statement are negative. Past Medical History Past Medical History: Diabetes Mellitus, Hypertension, Osteoarthritis (OA), Thyroid Disorder, Vascular Disorder Additional Past Medical History / Comment(s): Pt recently admitted to [facility] on 11/14/19 with R lower extremity stasis ulcer/wound/cellulitis, abnormal renal function, CHF, hyperkalemia. Other hx: POLIO AT AGE 3 with R leg alittle shorter/weaker and smaller, NIDDM, hypothyroid, anemia, gout bilateral great toes, L hip pain at times d/t OA, occasional lower extremity edema mostly involving R leg History of Any Multi-Drug Resistant Organisms: None Reported Past Surgical History: No Surgical Hx Reported Additional Past Surgical History / Comment(s): RT/LT CATARACT removal with lens implants, I&D L middle finger/abscess. Past Anesthesia/Blood Transfusion Reactions: No Reported Reaction Additional Past Anesthesia/Blood Transfusion Reaction / Comment(s): NEVER HAS HAD GENERAL ANESTHESIA Past Psychological History: No Psychological Hx Reported Smoking Status: Former smoker - Past Family History Father Family Medical History: Coronary Artery Disease (CAD), Myocardial Infarction ([place]) Additional Family Medical History / Comment(s): Father at the age of 63 yrs from a [place]. He had alot of family members with CAD. Mother Family Medical History: No Reported History Additional Family Medical History / Comment(s): Mother lived to be 90.5 yrs old. General Exam Limitations: no limitations General appearance: alert, in no apparent distress Head exam: Present: atraumatic, normocephalic Eye exam: Present: normal appearance, PERRL ENT exam: Present: normal exam Neck exam: Present: normal inspection. Absent: tenderness, meningismus Respiratory exam: Present: normal lung sounds bilaterally. Absent: respiratory distress, wheezes Cardiovascular Exam: Present: regular rate, normal rhythm GI/Abdominal exam: Present: soft. Absent: distended, tenderness, guarding Extremities exam: Present: pedal edema (Bilateral lower extremity edema, but the left anterior distal dominguez) Neurological exam: Present: alert, oriented X3, CN II-XII intact. Absent: motor sensory deficit Psychiatric exam: Present: normal affect, normal mood Skin exam: Present: warm, dry. Absent: cyanosis, diaphoretic Course Vital Signs 01/05/20 01/05/20 01/05/20 13:53 14:03 14:30 Temperature 97.4 F L Pulse Rate 89 79 Respiratory 18 13 Rate Blood Pressure 153/63 153/63 O2 Sat by Pulse 96 75 L 96 Oximetry 01/05/20 01/05/20 01/05/20 15:00 15:30 16:00 Temperature Pulse Rate 80 84 77 Respiratory 15 17 11 L Rate Blood Pressure 135/58 144/79 149/59 O2 Sat by Pulse 97 93 L Oximetry 01/05/20 01/05/20 16:30 17:00 Temperature Pulse Rate 79 71 Respiratory 15 11 L Rate Blood Pressure 126/56 136/60 O2 Sat by Pulse 97 94 L Oximetry - Reevaluation(s) Reevaluation #1: 01/05/20 17:10 She continues to be chest pain-free while in the emergency department. EKG Findings - EKG Comments: EKG Findings:: EKG: Sinus rhythm with first-degree AV block, left bundle branch block, rate of 87, NV interval 238, QRS duration 174, QTC 483, history of left bundle branch block Medical Decision Making - Medical Decision Making 79-year-old female with increased shows weakness, history of heart failure, bilateral lower extremity edema. Exam revealing significant lower extremity edema, chest x-ray showing pulmonary edema with bilateral effusions. She has a CBC showing anemia which is stable from recent comparison. She has mild hyperkalemia 5.3, chronic kidney disease with a creatinine of 1.5 which is baseline for this patient. Patient has significantly elevated troponin at 1.5, no active chest pain. She has a minimally elevated BNP consistent with congest lele heart failure. She is anticoagulated on Eliquis. Case discussed with ground crewman mission support Dr. Hernandez, recommends heparin, no bolus, beta chaim. Patient has diarrhea., She started on heparin and serial enzymes will be obtained. She is given a dose of Lasix in the emergency department without, she will be continued on IV Lasix. She will be admitted for congestive heart failure with cardiology on consult. - Lab Data Result diagrams: 01/05/20 14:40 01/05/20 14:40 Lab Results 01/05/20 01/05/20 01/05/20 Range/Units 14:40 14:40 14:40 WBC 7.3 (3.8-10.6) k/uL RBC 3.28 L (3.80-5.40) m/uL Hgb 10.2 L (11.4-16.0) gm/dL Hct 30.7 L (34.0-46.0) % MCV 93.9 (80.0-100.0) fL MCH 31.1 (25.0-35.0) pg MCHC 33.2 (31.0-37.0) g/dL RDW 16.8 H (11.5-15.5) % Plt Count 84 L (150-450) k/uL Neutrophils % 84 % Lymphocytes % 7 % Monocytes % 5 % Eosinophils % 1 % Basophils % 0 % Neutrophils # 6.1 (1.3-7.7) k/uL Lymphocytes # 0.5 L (1.0-4.8) k/uL Monocytes # 0.4 (0-1.0) k/uL Eosinophils # 0.1 (0-0.7) k/uL Basophils # 0.0 (0-0.2) k/uL Manual Slide Review Performed Large Platelets Present Polychromasia Present Poikilocytosis Slight Poikilocytosis (manual Present Anisocytosis Slight PT (9.0-12.0) sec INR (<1.2) APTT (22.0-30.0) sec Sodium 139 (137-145) mmol/L Potassium 5.3 H (3.5-5.1) mmol/L Chloride 110 H (98-107) mmol/L Carbon Dioxide 18 L (22-30) mmol/L Anion Gap 11 mmol/L BUN 74 H (7-17) mg/dL Creatinine 1.46 H (0.52-1.04) mg/dL Est GFR (CKD-EPI)AfAm 39 (>60 ml/min/1.73 sqM) Est GFR (CKD-EPI)NonAf 34 (>60 ml/min/1.73 sqM) Glucose 63 L (74-99) mg/dL Plasma Lactic Acid Terrance 0.8 (0.7-2.0) mmol/L Calcium 9.9 (8.4-10.2) mg/dL Magnesium 2.2 (1.6-2.3) mg/dL Total Bilirubin 0.6 (0.2-1.3) mg/dL AST 62 H (14-36) U/L ALT 44 H (4-34) U/L Alkaline Phosphatase 85 (38-126) U/L Creatine Kinase (30-135) U/L Troponin I (0.000-0.034) ng/mL NT-Pro-B Natriuret Pep pg/mL Total Protein 7.1 (6.3-8.2) g/dL Albumin 4.5 (3.5-5.0) g/dL Urine Color Urine Appearance (Clear) Urine pH (5.0-8.0) Ur Specific [place] (1.001-1.035) Urine Protein (Negative) Urine Glucose (UA) (Negative) Urine Ketones (Negative) Urine Blood (Negative) Urine Nitrite (Negative) Urine Bilirubin (Negative) Urine Urobilinogen (<2.0) mg/dL Ur Leukocyte Esterase (Negative) Urine WBC (0-5) /hpf Urine Bacteria (None) /hpf Urine Mucus (None) /hpf 01/05/20 01/05/20 01/05/20 Range/Units 14:40 14:40 15:22 WBC (3.8-10.6) k/uL RBC (3.80-5.40) m/uL Hgb (11.4-16.0) gm/dL Hct (34.0-46.0) % MCV (80.0-100.0) fL MCH (25.0-35.0) pg MCHC (31.0-37.0) g/dL RDW (11.5-15.5) % Plt Count (150-450) k/uL Neutrophils % % Lymphocytes % % Monocytes % % Eosinophils % % Basophils % % Neutrophils # (1.3-7.7) k/uL Lymphocytes # (1.0-4.8) k/uL Monocytes # (0-1.0) k/uL Eosinophils # (0-0.7) k/uL Basophils # (0-0.2) k/uL Manual Slide Review Large Platelets Polychromasia Poikilocytosis Poikilocytosis (manual Anisocytosis PT 11.0 (9.0-12.0) sec INR 1.1 (<1.2) APTT 29.7 (22.0-30.0) sec Sodium (137-145) mmol/L Potassium (3.5-5.1) mmol/L Chloride (98-107) mmol/L Carbon Dioxide (22-30) mmol/L Anion Gap mmol/L BUN (7-17) mg/dL Creatinine (0.52-1.04) mg/dL Est GFR (CKD-EPI)AfAm (>60 ml/min/1.73 sqM) Est GFR (CKD-EPI)NonAf (>60 ml/min/1.73 sqM) Glucose (74-99) mg/dL Plasma Lactic Acid Terrance (0.7-2.0) mmol/L Calcium (8.4-10.2) mg/dL Magnesium (1.6-2.3) mg/dL Total Bilirubin (0.2-1.3) mg/dL AST (14-36) U/L ALT (4-34) U/L Alkaline Phosphatase (38-126) U/L Creatine Kinase 273 H (30-135) U/L Troponin I (0.000-0.034) ng/mL NT-Pro-B Natriuret Pep pg/mL Total Protein (6.3-8.2) g/dL Albumin (3.5-5.0) g/dL Urine Color Light Yellow Urine Appearance Clear (Clear) Urine pH 5.0 (5.0-8.0) Ur Specific [place] 1.012 (1.001-1.035) Urine Protein Negative (Negative) Urine Glucose (UA) Negative (Negative) Urine Ketones Negative (Negative) Urine Blood Small H (Negative) Urine Nitrite Negative (Negative) Urine Bilirubin Negative (Negative) Urine Urobilinogen <2.0 (<2.0) mg/dL Ur Leukocyte Esterase Negative (Negative) Urine WBC 1 (0-5) /hpf Urine Bacteria Rare H (None) /hpf Urine Mucus Rare H (None) /hpf 01/05/20 01/05/20 Range/Units 16:08 16:08 WBC (3.8-10.6) k/uL RBC (3.80-5.40) m/uL Hgb (11.4-16.0) gm/dL Hct (34.0-46.0) % MCV (80.0-100.0) fL MCH (25.0-35.0) pg MCHC (31.0-37.0) g/dL RDW (11.5-15.5) % Plt Count (150-450) k/uL Neutrophils % % Lymphocytes % % Monocytes % % Eosinophils % % Basophils % % Neutrophils # (1.3-7.7) k/uL Lymphocytes # (1.0-4.8) k/uL Monocytes # (0-1.0) k/uL Eosinophils # (0-0.7) k/uL Basophils # (0-0.2) k/uL Manual Slide Review Large Platelets Polychromasia Poikilocytosis Poikilocytosis (manual Anisocytosis PT (9.0-12.0) sec INR (<1.2) APTT (22.0-30.0) sec Sodium (137-145) mmol/L Potassium (3.5-5.1) mmol/L Chloride (98-107) mmol/L Carbon Dioxide (22-30) mmol/L Anion Gap mmol/L BUN (7-17) mg/dL Creatinine (0.52-1.04) mg/dL Est GFR (CKD-EPI)AfAm (>60 ml/min/1.73 sqM) Est GFR (CKD-EPI)NonAf (>60 ml/min/1.73 sqM) Glucose (74-99) mg/dL Plasma Lactic Acid Terrance (0.7-2.0) mmol/L Calcium (8.4-10.2) mg/dL Magnesium (1.6-2.3) mg/dL Total Bilirubin (0.2-1.3) mg/dL AST (14-36) U/L ALT (4-34) U/L Alkaline Phosphatase (38-126) U/L Creatine Kinase (30-135) U/L Troponin I 1.540 H* (0.000-0.034) ng/mL NT-Pro-B Natriuret Pep 1630 pg/mL Total Protein (6.3-8.2) g/dL Albumin (3.5-5.0) g/dL Urine Color Urine Appearance (Clear) Urine pH (5.0-8.0) Ur Specific [place] (1.001-1.035) Urine Protein (Negative) Urine Glucose (UA) (Negative) Urine Ketones (Negative) Urine Blood (Negative) Urine Nitrite (Negative) Urine Bilirubin (Negative) Urine Urobilinogen (<2.0) mg/dL Ur Leukocyte Esterase (Negative) Urine WBC (0-5) /hpf Urine Bacteria (None) /hpf Urine Mucus (None) /hpf Critical Care Time Critical Care Time: Yes Total Critical Care Time: 35 Disposition Clinical Impression: Acute pulmonary edema, CHF (congestive heart failure), NSTEMI (non-ST elevated myocardial infarction) Disposition: ADMITTED IP TO THIS [facility] Condition: Stable Is patient prescribed a controlled substance at d/c from ED?: No Decision to Admit Reason: Admit from EC Decision Date: 01/05/20 Decision Time: 16:33
[2020-01-05 14:58] LABS: Anisocytosis Slight; Basophils % (A) 0 %; Eosinophils # (A) 0.1 k/uL (0-0.7); Eosinophils % (A) 1 %; HCT 30.7 % (34.0-46.0); HGB 10.2 gm/dL (11.4-16.0); Lymphocytes # (A) 0.5 k/uL (1.0-4.8); Lymphocytes % (A) 7 %; MCH 31.1 pg (25.0-35.0); MCHC 33.2 g/dL (31.0-37.0); MCV 93.9 fL (80.0-100.0); Mean Platelet Volume 8.8; Monocytes # (A) 0.4 k/uL (0-1.0); Monocytes % (A) 5 %; Neutrophils # (A) 6.1 k/uL (1.3-7.7); Neutrophils % (A) 84 %; Poikilocytosis Slight; RBC 3.28 m/uL (3.80-5.40); RDW 16.8 % (11.5-15.5); WBC 7.3 k/uL (3.8-10.6)
[2020-01-05 15:02] LABS: INR 1.1 (<1.2); Partial Thromboplastin Time 29.7 sec (22.0-30.0)
[2020-01-05 15:22] LABS: Albumin 4.5 g/dL (3.5-5.0); Calcium 9.9 mg/dL (8.4-10.2); Magnesium 2.2 mg/dL (1.6-2.3); Potassium 5.3 mmol/L (3.5-5.1); Total Bilirubin 0.6 mg/dL (0.2-1.3); Total Protein 7.1 g/dL (6.3-8.2)
--- NOTE | 2020-01-05 15:23 | XR ---
EXAMINATION TYPE: XR chest 2V DATE OF EXAM: 01/05/2020 COMPARISON: 12/04/2019 HISTORY: Weakness TECHNIQUE: Frontal and lateral views of the chest are obtained. FINDINGS: There are low lung volumes which exaggerate the pulmonary vasculature. Cardiomediastinal s ilhouette is enlarged. Very trace pleural effusions blunt the costophrenic angles. Diffuse osseous de mineralization is seen. IMPRESSION: Slightly exaggerated pulmonary vasculature by low lung volumes. Trace pleural effusions and enlarged cardiomediastinal silhouette. Correlate for congestive heart failure.
[2020-01-05 15:44] LABS: Large Platelets Present; Poikilocytosis (M) Present; Polychromasia Present
[2020-01-05 15:45] LABS: Platelet Count 84 k/uL (150-450)
[2020-01-05 15:48] LABS: Appearance,Urine Clear (Clear); Bacteria,Urine Rare /hpf; Bilirubin,Urine Negative (Negative); Blood,Urine Small (Negative); Color,Urine Light Yellow; Glucose,Urine (UA) Negative (Negative); Ketones,Urine Negative (Negative); Leukocyte Esterase,Urine Negative (Negative); Mucus,Urine Rare /hpf; Nitrite,Urine Negative (Negative); Protein,Urine Negative (Negative); Specific Gravity,Urine 1.012 (1.001-1.035); Urobilinogen,Urine <2.0 mg/dL (<2.0); WBC,Urine 1 /hpf (0-5)
[2020-01-05] MEDS ORDERED: FUROSEMIDE 10 MG/ML 4 ML VIAL IV STA (16:10)
[2020-01-05] MEDS ORDERED: NALOXONE 0.4 MG/ML 1 ML VIAL IV PRN (16:20)
[2020-01-05] MEDS ORDERED: ASPIRIN 325 MG TAB PO STA (16:57)
[2020-01-05] MEDS ORDERED: HEPARIN SODIUM,PORCINE 5,000 UNIT/ML 1 ML VIAL IV ONE (18:14)
[2020-01-05] MEDS: HEPARIN SODIUM,PORCINE 5,000 UNIT/ML 1 ML VIAL IV PRN (18:27)
[2020-01-05] MEDS: HEPARIN SOD,PORK IN 0.45% NACL 25,000 UNIT in 0.45% NACL 1 250ML.BAG IV SCH (18:29)
[2020-01-05 20:06] LABS: Glucose,Whole Blood 109 mg/dL (75-99)
[2020-01-05] MEDS: INSULIN ASPART (NovoLOG) 100 UNIT/ML VIAL SQ SCH (20:09)
[2020-01-05] MEDS: CARVEDILOL 6.25 MG TAB PO SCH (20:18)
[2020-01-05] MEDS: ATORVASTATIN 40 MG TAB PO SCH (20:18)
[2020-01-05] MEDS ORDERED: APIXABAN 2.5 MG TABLET PO SCH (21:00)
--- NOTE | 2020-01-05 22:27 | P.HPIM ---
History of Present Illness H&P Date: 01/05/20 Chief Complaint: Unable to get up Hospital course: This is a pleasant 79-year-old patient of Dr. Hays was chronic stable medical conditions include diabetes mellitus type 2, hypertension, hypothyroid, polio affecting the right leg, chronic gait dysfunction uses a cane primary osteoarthritis CHF EF 40-45%.. Also has venous stasis ulcer on the right lower extremity. Patient was at home sitting on the toilet chair. Normally uses a cane to get about. Just felt very weak and unable to get up from the same. No swelling of the legs. No dizziness no lightheadedness. Had been tolerating his diet. No fever no chills. Patient had to call her sister and her son to help her up. Patient's house and one level normally does not have to do stairs. No chest pain no palpitation. Review of systems: GEN.: Tired EYES: None HEENT: None NECK: None RESPIRATORY: None CARDIOVASCULAR: As above GASTROINTESTINAL: None GENITOURINARY: None MUSCULOSKELETAL: Joint pains LYMPHATICS: None HEMATOLOGICAL: None PSYCHIATRY: None NEUROLOGICAL: None Past medical history to include: Diabetes mellitus type 2, hypertension, hypothyroid, polio affecting the right leg-short, chronic gait dysfunction uses a cane, primary osteoarthritis, venous insufficiency, venous ulcer on the right lower extremity, CHF EF 40-45%. Social history: Lives alone. Uses a cane. Does smoke small amounts and the past. Alcohol occasionally. It is a . Family history: Reviewed, noncontributory to presentation Physical examination: VITAL SIGNS: 97.4, 89, 18, 153/63, 96% on room air GENERAL: BMI 30.5, laying in bed tired EYES: Pupils equal. Conjunctiva normal. HEENT: External appearance of nose and ears normal, oral cavity grossly normal. NECK: JVD possibly raise; masses not palpable. HEART: First and second heart sounds are normal; some edema present. LUNGS: Respiratory rate increased, decreased breath sounds. ABDOMEN: Soft, nontender, liver spleen not palpable, no masses palpable. PSYCH: Alert and oriented x3; mood and affect normal EXTREMITY: Right leg is shortened, dressing over the venous ulcer, blister around the left ankle. NEUROLOGICAL: Cranial nerves grossly intact; no facial asymmetry, some proximal muscle weakness LYMPHATICS: No lymph nodes palpable in the axilla and neck INVESTIGATIONS, reviewed in the clinical context: White count 7.3 hemoglobin 10.2 platelets 84 potassium 5.3 bicarb 18 bun 74 creatinine 1.46 glucose 63 2-D echo from 11/17/2019-EF 40-45% EKG tracing personally reviewed by me-left bundle-branch block Chest x-ray film personally reviewed by me-pulmonary edema Assessment: -Acute metabolic encephalopathy possibly from hypoglycemia blood sugar in the ER was 63 -Acute on chronic congestive heart failure from systolic dysfunction EF 40-45%, -Chronic kidney disease stage III likely from diabetic nephropathy and hypertensive nephrosclerosis -Chronic l right lower extremity wound from ruptured blister from venous insufficiency. Left lower extremity fluid blister -Diabetes mellitus type 2, uncontrolled with hypoglycemia -Essential hypertension -Hypothyroid -Polio affecting the right 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 -Primary osteoarthritis especially of the hips Plan: We'll put the patient on Lasix drip and follow electrolytes closely. Consider nephrology consultation. Also get a cardiology consultation. Patient's Glucotrol will be held. Other medications to continue. Care was discussed with the patient. Past Medical History Past Medical History: Diabetes Mellitus, Hypertension, Osteoarthritis (OA), Thyroid Disorder, Vascular Disorder Additional Past Medical History / Comment(s): Pt recently admitted to [facility] on 11/14/19 with R lower extremity stasis ulcer/wound/cellulitis, abnormal renal function, CHF, hyperkalemia. Other hx: POLIO AT AGE 3 with R leg alittle shorter/weaker and smaller, NIDDM, hypothyroid, anemia, gout bilateral great toes, L hip pain at times d/t OA, occasional lower extremity edema mostly involving R leg History of Any Multi-Drug Resistant Organisms: None Reported Past Surgical History: No Surgical Hx Reported Additional Past Surgical History / Comment(s): RT/LT CATARACT removal with lens implants, I&D L middle finger/abscess. Past Anesthesia/Blood Transfusion Reactions: No Reported Reaction Additional Past Anesthesia/Blood Transfusion Reaction / Comment(s): NEVER HAS HAD GENERAL ANESTHESIA Past Psychological History: No Psychological Hx Reported Smoking Status: Former smoker - Past Family History Father Family Medical History: Coronary Artery Disease (CAD), Myocardial Infarction ([place]) Additional Family Medical History / Comment(s): Father at the age of 63 yrs from a [place]. He had alot of family members with CAD. Mother Family Medical History: No Reported History Additional Family Medical History / Comment(s): Mother lived to be 90.5 yrs old. Medications and Allergies Home Medications Medication Instructions Recorded Confirmed Type Aspirin 81 mg PO DAILY 06/25/15 01/05/20 History Fish Oil/Dha/Epa [Fish Oil 1,200 1 cap PO DAILY 06/25/15 01/05/20 History mg Fish Oil] Levothyroxine Sodium [Synthroid] 125 mcg PO DAILY 06/25/15 01/05/20 History glipiZIDE XL [Glucotrol XL] 5 mg PO AC-BRKFST 06/25/15 01/05/20 History Cholecalciferol [Vitamin D3 (25 1,000 unit PO DAILY 06/23/16 01/05/20 History Mcg = 1000 Iu)] Allopurinol [Zyloprim] 100 mg PO DAILY 11/14/19 01/05/20 History Lisinopril [Prinivil] 5 mg PO DAILY #0 11/18/19 01/05/20 Rx Apixaban [Eliquis] 2.5 mg PO BID #60 tab 12/04/19 01/05/20 Rx Carvedilol [Coreg] 6.25 mg PO BID-W/MEALS #60 tab 12/04/19 01/05/20 Rx Isosorbide Mononitrate ER [Imdur] 60 mg PO DAILY #60 tab.er.24h 12/04/19 01/05/20 Rx Atorvastatin [Lipitor] 40 mg PO DAILY 01/05/20 01/05/20 History Allergies Allergy/AdvReac Type Severity Reaction Status Date / Time No Known Allergies Allergy Verified 01/05/20 17:11 Physical Exam Vitals: Vital Signs Temp Pulse Pulse Resp BP BP Pulse Ox 01/05/20 20:00 18 01/05/20 19:45 97.5 F L 68 18 118/56 97 01/05/20 18:00 77 14 144/57 97 01/05/20 17:30 81 16 116/54 97 01/05/20 17:00 71 11 L 136/60 94 L 01/05/20 16:30 79 15 126/56 97 01/05/20 16:00 77 11 L 149/59 93 L 01/05/20 15:30 84 17 144/79 01/05/20 15:00 80 15 135/58 97 01/05/20 14:30 79 13 153/63 96 01/05/20 14:03 75 L 01/05/20 13:53 97.4 F L 89 18 153/63 96 Intake and Output 01/05/20 01/05/20 01/05/20 06:59 14:59 22:59 Output Total 350 Balance -350 Output: Urine 350 Other: # Voids 1 Weight 78.018 kg 78.018 kg Results CBC & Chem 7: 01/05/20 14:40 01/05/20 14:40 Labs: Abnormal Lab Results - Last 24 Hours (Table) 01/05/20 01/05/20 01/05/20 Range/Units 14:40 14:40 14:40 RBC 3.28 L (3.80-5.40) m/uL Hgb 10.2 L (11.4-16.0) gm/dL Hct 30.7 L (34.0-46.0) % RDW 16.8 H (11.5-15.5) % Plt Count 84 L (150-450) k/uL Lymphocytes # 0.5 L (1.0-4.8) k/uL Potassium 5.3 H (3.5-5.1) mmol/L Chloride 110 H (98-107) mmol/L Carbon Dioxide 18 L (22-30) mmol/L BUN 74 H (7-17) mg/dL Creatinine 1.46 H (0.52-1.04) mg/dL Glucose 63 L (74-99) mg/dL POC Glucose (mg/dL) (75-99) mg/dL AST 62 H (14-36) U/L ALT 44 H (4-34) U/L Creatine Kinase 273 H (30-135) U/L Troponin I (0.000-0.034) ng/mL Urine Blood (Negative) Urine Bacteria (None) /hpf Urine Mucus (None) /hpf 01/05/20 01/05/20 01/05/20 Range/Units 15:22 16:08 20:05 RBC (3.80-5.40) m/uL Hgb (11.4-16.0) gm/dL Hct (34.0-46.0) % RDW (11.5-15.5) % Plt Count (150-450) k/uL Lymphocytes # (1.0-4.8) k/uL Potassium (3.5-5.1) mmol/L Chloride (98-107) mmol/L Carbon Dioxide (22-30) mmol/L BUN (7-17) mg/dL Creatinine (0.52-1.04) mg/dL Glucose (74-99) mg/dL POC Glucose (mg/dL) 109 H (75-99) mg/dL AST (14-36) U/L ALT (4-34) U/L Creatine Kinase (30-135) U/L Troponin I 1.540 H* (0.000-0.034) ng/mL Urine Blood Small H (Negative) Urine Bacteria Rare H (None) /hpf Urine Mucus Rare H (None) /hpf
[2020-01-05] MEDS: FUROSEMIDE 100 MG in SODIUM CHLORIDE 0.9% 90 ML IV SCH (22:43)
[2020-01-06 03:49] LABS: Anisocytosis Slight; Basophils % (A) 0 %; Eosinophils # (A) 0.1 k/uL (0-0.7); Eosinophils % (A) 2 %; HCT 28.8 % (34.0-46.0); HGB 9.8 gm/dL (11.4-16.0); Lymphocytes # (A) 0.8 k/uL (1.0-4.8); Lymphocytes % (A) 16 %; MCH 32.7 pg (25.0-35.0); MCHC 33.9 g/dL (31.0-37.0); MCV 96.5 fL (80.0-100.0); Macrocytosis Slight; Mean Platelet Volume 8.7; Monocytes # (A) 0.3 k/uL (0-1.0); Monocytes % (A) 6 %; Neutrophils # (A) 3.3 k/uL (1.3-7.7); Neutrophils % (A) 72 %; RBC 2.99 m/uL (3.80-5.40); RDW 16.7 % (11.5-15.5); WBC 4.7 k/uL (3.8-10.6)
[2020-01-06 03:51] LABS: Platelet Count 77 k/uL (150-450)
[2020-01-06 04:06] LABS: Calcium 9.8 mg/dL (8.4-10.2)
[2020-01-06 04:29] LABS: Potassium 5.3 mmol/L (3.5-5.1)
[2020-01-06 06:09] LABS: Glucose,Whole Blood 89 mg/dL (75-99)
[2020-01-06] MEDS: CARVEDILOL 6.25 MG TAB PO SCH ×2 (06:28→18:07)
[2020-01-06] MEDS: LEVOTHYROXINE 125 MCG TAB PO SCH (06:28)
[2020-01-06] MEDS: INSULIN ASPART (NovoLOG) 100 UNIT/ML VIAL SQ SCH ×4 (06:31→20:57)
[2020-01-06] MEDS: HEPARIN SOD,PORK IN 0.45% NACL 25,000 UNIT in 0.45% NACL 1 250ML.BAG IV SCH (08:13)
[2020-01-06] MEDS: FUROSEMIDE 100 MG in SODIUM CHLORIDE 0.9% 90 ML IV SCH (08:14)
[2020-01-06] MEDS: ISOSORBIDE MONONITRATE ER 60 MG TAB.ER.24H PO SCH (09:11)
[2020-01-06] MEDS: LISINOPRIL 5 MG TAB PO SCH (09:11)
[2020-01-06] MEDS: ALLOPURINOL 100 MG TAB PO SCH (09:12)
[2020-01-06] MEDS: ASPIRIN 81 MG PO SCH (09:12)
[2020-01-06 10:04] VITALS: BMI 30.4
--- NOTE | 2020-01-06 11:17 | P.CRDCN ---
History of Present Illness Consult date: 01/06/20 Requesting physician: Suresh Poon Chief complaint: Weakness History of present illness: Pleasant 79-year-old female who follows with Dr. VC Garcia in the office. She has a past medical history significant for hypertension, diabetes, hyperlipidemia, most recent hospitalization was in November with congestive heart failure. Patient also has history of hypothyroidism, polio, ulceration of the right lower extremity. Patient was brought to the hospital on this occasion with extreme weakness. According to the patient, she was sitting on the toilet and states that she could not stand up. According to her she's been feeling quite well at home with no symptoms of shortness of breath, no chest discomfort. She just was so weak she could not stand, her legs would not hold her her sister and another family member tried to lift her but states that she was just weight. Chest x-ray shows slightly exaggerated pulmonary vasculature with low lung volumes, trace pleural effusions and enlarged cardiomediastinal silhouette. Congestive heart failure suggested EKG shows a normal sinus rhythm with a left bundle-branch block pattern, first-degree AV block. Blood pressure 152/62 on arrival, heart rate in the 80s, 96% on room air. White blood cell count 4.7, hemoglobin 9.8, platelet count 77. Sodium 140, potassium 5.3, BUN 75, creatinine 1.6. Magnesium 2.2. AST 62 ALT 44, CK 273. BNP level 1630. Troponin 1.5, 5.6, 6.9. At the time of my examination this morning, patient is resting comfortably in bed, family at bedside. She denies any chest pain at present or having any chest pain or discomfort prior to coming to the hospital. Past Medical History Past Medical History: Diabetes Mellitus, Hypertension, Osteoarthritis (OA), Thyroid Disorder, Vascular Disorder Additional Past Medical History / Comment(s): Pt recently admitted to [facility] on 11/14/19 with R lower extremity stasis ulcer/wound/cellulitis, abnormal renal function, CHF, hyperkalemia. Other hx: POLIO AT AGE 3 with R leg alittle shorter/weaker and smaller, NIDDM, hypothyroid, anemia, gout bilateral great toes, L hip pain at times d/t OA, occasional lower extremity edema mostly involving R leg History of Any Multi-Drug Resistant Organisms: None Reported Past Surgical History: No Surgical Hx Reported Additional Past Surgical History / Comment(s): RT/LT CATARACT removal with lens implants, I&D L middle finger/abscess. Past Anesthesia/Blood Transfusion Reactions: No Reported Reaction Additional Past Anesthesia/Blood Transfusion Reaction / Comment(s): NEVER HAS HAD GENERAL ANESTHESIA Past Psychological History: No Psychological Hx Reported Smoking Status: Former smoker - Past Family History Father Family Medical History: Coronary Artery Disease (CAD), Myocardial Infarction (RI) Additional Family Medical History / Comment(s): Father at the age of 63 yrs from a RI. He had alot of family members with CAD. Mother Family Medical History: No Reported History Additional Family Medical History / Comment(s): Mother lived to be 90.5 yrs old. Medications and Allergies Home Medications Medication Instructions Recorded Confirmed Type Aspirin 81 mg PO DAILY 06/25/15 01/05/20 History Fish Oil/Dha/Epa [Fish Oil 1,200 1 cap PO DAILY 06/25/15 01/05/20 History mg Fish Oil] Levothyroxine Sodium [Synthroid] 125 mcg PO DAILY 06/25/15 01/05/20 History glipiZIDE XL [Glucotrol XL] 5 mg PO AC-BRKFST 06/25/15 01/05/20 History Cholecalciferol [Vitamin D3 (25 1,000 unit PO DAILY 06/23/16 01/05/20 History Mcg = 1000 Iu)] Allopurinol [Zyloprim] 100 mg PO DAILY 11/14/19 01/05/20 History Lisinopril [Prinivil] 5 mg PO DAILY #0 11/18/19 01/05/20 Rx Apixaban [Eliquis] 2.5 mg PO BID #60 tab 12/04/19 01/05/20 Rx Carvedilol [Coreg] 6.25 mg PO BID-W/MEALS #60 tab 12/04/19 01/05/20 Rx Isosorbide Mononitrate ER [Imdur] 60 mg PO DAILY #60 tab.er.24h 12/04/19 01/05/20 Rx Atorvastatin [Lipitor] 40 mg PO DAILY 01/05/20 01/05/20 History Allergies Allergy/AdvReac Type Severity Reaction Status Date / Time No Known Allergies Allergy Verified 01/05/20 17:11 Physical Exam Vitals: Vital Signs Temp Pulse Pulse Resp BP BP Pulse Ox 01/06/20 03:15 98.2 F 64 18 151/66 97 01/05/20 23:57 98.1 F 76 18 106/51 97 01/05/20 23:54 18 01/05/20 20:00 18 01/05/20 19:45 97.5 F L 68 18 118/56 97 01/05/20 18:00 77 14 144/57 97 01/05/20 17:30 81 16 116/54 97 01/05/20 17:00 71 11 L 136/60 94 L 01/05/20 16:30 79 15 126/56 97 01/05/20 16:00 77 11 L 149/59 93 L 01/05/20 15:30 84 17 144/79 01/05/20 15:00 80 15 135/58 97 01/05/20 14:30 79 13 153/63 96 01/05/20 14:03 75 L 01/05/20 13:53 97.4 F L 89 18 153/63 96 Intake and Output 01/05/20 01/06/20 01/06/20 22:59 06:59 14:59 Intake Total 53.519 151.811 Output Total 350 1000 Balance -350 53.519 -848.189 Intake: Intake, IV Titration 53.519 151.811 Amount Furosemide 100 mg In 95.167 Sodium Chloride 0.9% 90 ml @ 10 MG/HR 10 mls/hr IV .Q10H [facility] Rx#: [id number] Heparin Sod,Pork in 0.45% 53.519 56.644 NaCl 25,000 unit In 0.45 % NaCl 1 250ml.bag @ 12 UNITS/KG/HR 9.362 mls/hr IV .Q24H [facility] Rx#: [id number] Output: Urine 350 1000 Other: # Voids 1 Weight 78.018 kg 78.018 kg CONSTITUTIONAL: No apparent distress. HEENT: Head is normocephalic. Pupils are equal, round. Sclerae anicteric. Mucous membranes of the mouth are moist. Mildly elevated JVP. No carotid bruit. CHEST EXAMINATION: Lungs are clear to auscultation anteriorly with diminished air entry to the bases bilaterally posteriorly. No chest wall tenderness is noted on palpation or with deep breathing. HEART EXAMINATION: Regular rate and rhythm. S1, S2 heard. No murmurs, gallops or rub. ABDOMEN: Soft, nontender. Positive bowel sounds. EXTREMITIES: 2+ peripheral pulses, trace to 1+ lower extremity edema, there is a dressing in place to the right lower extremity where patient has been seeing Dr. Henson for an infection, she has a large blistered area of the left lower extremity. NEUROLOGIC EXAMINATION: Patient is awake, alert and oriented x3. Results 01/06/20 03:26 01/06/20 03:26 Cardiac Enzymes 01/05/20 01/05/20 01/05/20 Range/Units 14:40 16:08 22:50 AST 62 H (14-36) U/L Troponin I 1.540 H* 5.650 H* (0.000-0.034) ng/mL 01/06/20 Range/Units 03:26 AST (14-36) U/L Troponin I 6.950 H* (0.000-0.034) ng/mL Coagulation 01/05/20 01/05/20 01/06/20 Range/Units 14:40 22:50 07:14 PT 11.0 (9.0-12.0) sec APTT 29.7 >200.0 H* >200.0 H* (22.0-30.0) sec CBC 01/05/20 01/06/20 Range/Units 14:40 03:26 WBC 7.3 4.7 (3.8-10.6) k/uL RBC 3.28 L 2.99 L (3.80-5.40) m/uL Hgb 10.2 L 9.8 L (11.4-16.0) gm/dL Hct 30.7 L 28.8 L (34.0-46.0) % Plt Count 84 L 77 L (150-450) k/uL Comprehensive Metabolic Panel 01/05/20 01/06/20 Range/Units 14:40 03:26 Sodium 139 140 (137-145) mmol/L Potassium 5.3 H 5.3 H (3.5-5.1) mmol/L Chloride 110 H 108 H (98-107) mmol/L Carbon Dioxide 18 L 19 L (22-30) mmol/L BUN 74 H 75 H (7-17) mg/dL Creatinine 1.46 H 1.62 H (0.52-1.04) mg/dL Glucose 63 L 89 (74-99) mg/dL Calcium 9.9 9.8 (8.4-10.2) mg/dL AST 62 H (14-36) U/L ALT 44 H (4-34) U/L Alkaline Phosphatase 85 (38-126) U/L Total Protein 7.1 (6.3-8.2) g/dL Albumin 4.5 (3.5-5.0) g/dL Current Medications Generic Name Dose Route Start Last Admin Trade Name Freq PRN Reason Stop Dose Admin Allopurinol 100 mg 01/06/20 09:00 01/06/20 09:12 Zyloprim PO 100 mg DAILY [facility] Administration Aspirin 81 mg 01/06/20 09:00 01/06/20 09:12 Aspirin PO 81 mg DAILY [facility] Administration Atorvastatin Calcium 40 mg 01/05/20 21:00 01/05/20 20:18 Lipitor PO 40 mg HS [facility] Administration Carvedilol 6.25 mg 01/05/20 17:30 01/06/20 06:28 Coreg PO 6.25 mg BID-W/MEALS [facility] Administration Heparin Sodium (Porcine) 0 unit 01/05/20 17:30 01/05/20 18:27 Heparin IV 4,000 unit PER PROTOCOL PRN Administration Low PTT Protocol Heparin Sodium/Sodium Chloride 250 mls @ 9.362 mls/hr 01/05/20 17:30 01/06/20 09:53 25,000 unit/ Sodium Chloride IV 6 units/kg/hr .Q24H [facility] 4.681 mls/hr Titration Protocol 12 UNITS/KG/HR Furosemide 100 mg/ Sodium 100 mls @ 10 mls/hr 01/05/20 22:30 01/06/20 08:14 Chloride IV 10 mg/hr .Q10H [facility] 10 mls/hr Administration 10 MG/HR Insulin Aspart 0 unit 01/05/20 21:00 01/06/20 06:31 Novolog SQ Not Given ACHS [facility] Protocol Isosorbide Mononitrate 60 mg 01/06/20 09:00 01/06/20 09:11 Imdur PO 60 mg DAILY [facility] Administration Levothyroxine Sodium 125 mcg 01/06/20 06:30 01/06/20 06:28 Synthroid PO 125 mcg 0630 [facility] Administration Lisinopril 5 mg 01/06/20 09:00 01/06/20 09:11 Zestril PO 5 mg DAILY [facility] Administration Naloxone HCl 0.2 mg 01/05/20 16:20 Narcan IV Q2M PRN Opioid Reversal Intake and Output 01/05/20 01/06/20 01/06/20 22:59 06:59 14:59 Intake Total 53.519 151.811 Output Total 350 1000 Balance -350 53.519 -848.189 Intake: Intake, IV Titration 53.519 151.811 Amount Furosemide 100 mg In 95.167 Sodium Chloride 0.9% 90 ml @ 10 MG/HR 10 mls/hr IV .Q10H [facility] Rx#: [id number] Heparin Sod,Pork in 0.45% 53.519 56.644 NaCl 25,000 unit In 0.45 % NaCl 1 250ml.bag @ 12 UNITS/KG/HR 9.362 mls/hr IV .Q24H [facility] Rx#: [id number] Output: Urine 350 1000 Other: # Voids 1 Weight 78.018 kg 78.018 kg Patient Weight 01/07/20 06:59 Weight 78.018 kg 01/06/20 03:26 01/06/20 03:26 EKG Interpretations (text) EKG shows a normal sinus rhythm with a left bundle-branch block pattern and first-degree AV block. Assessment and Plan Plan: Assessment and plan #1 lower extremity weakness #2 troponin abnormality, possible non-Q-wave myocardial infarction #3 hypertension #4 diabetes #5 systolic congestive heart failure acute on chronic #6 renal insufficiency acute on chronic Plan We will obtain a limited echo as the patient just recently had one performed in November to assess the LV function because of the abnormality in troponin. Co ntinue baby aspirin, Lipitor, Coreg, IV Lasix drip will be discontinued, we will give the patient IV push Lasix. Continue lisinopril. DNP note has been reviewed, I agree with a documented findings and plan of care. Patient was seen and examined.
[2020-01-06 12:01] LABS: Glucose,Whole Blood 111 mg/dL (75-99)
--- NOTE | 2020-01-06 14:26 | CONS ---
CONSULTATION REASON FOR CONSULT: Renal failure. HISTORY OF PRESENT ILLNESS: Patient is an 79-year-old female who was admitted to the hospital with weakness. She was noted to have significant edema. She was actually unable to get up from her toilet seat and therefore EMS was called. Significant swelling of the lower extremities was noted. Therefore, patient was admitted to the hospital. Her serum creatinine was 1.4 on admission, it has gone up to 1.6. Review of previous labs show serum creatinine about 1.1 on 12/01/2019 with episodes of acute kidney injury with creatinine as high as 1.9 on 12/19/2019. Currently, patient is maintained on a Lasix drip. She has had good urine output. Her blood pressure is not significantly low. Patient denies use of any nonsteroidal anti-inflammatory agents. PAST MEDICAL HISTORY: Type 2 diabetes, hypothyroidism, dyslipidemia, hypertension, osteoarthritis, history of cellulitis, history of polio with right leg slightly shorter, anemia of chronic disease. PAST SURGICAL HISTORY: Cataract surgery, I and D of left middle finger abscess. SOCIAL HISTORY: Negative for smoking, drug abuse or alcohol abuse. Patient is a former smoker. MEDICATIONS: At home prior to admission included Coreg, Lasix, Eliquis, Prinivil, Lipitor, Imdur, Glucotrol, Synthroid, fish oil, aspirin, vitamin D. ALLERGIES: None. REVIEW OF SYSTEMS: As per HPI. Other systems negative. PHYSICAL EXAMINATION: On examination, patient is comfortable, awake. She is not in any acute distress. Blood pressure is 100/43, heart rate 60 per minute, she is afebrile. Examination of the heart S1, S2. Examination of the lungs, bilateral breath sounds are heard. Decreased breath sounds at the bases. Abdomen is soft, non-tender. Examination of the lower extremities shows large blister in the left lower extremity, near the ankle. Right leg is currently wrapped. Edema is noted bilaterally with some wrinkling noted in the skin bilaterally as well. INSTALL TECHNICIAN exam is grossly intact. LABS: Show sodium of 140, potassium 5.3, chloride 108, CO2 is 19, BUN 75, creatinine 1.6, troponin 6.9, hemoglobin of 9.8 g/dL. ASSESSMENT: 1. Acute kidney injury, mainly cardiorenal, currently maintained on Lasix drip. I will switch the Lasix to IV q.8 hours 40 mg and repeat labs in a.m. She is not on any nephrotoxic medications. UA appears quite benign. A postvoid bladder scan will be ordered as well. Ultrasound of the kidneys will be ordered if it has not been done recently. 2. Mild hyperkalemia associated with renal failure. Expect improvement with ongoing diuresis. 3. Mild metabolic acidosis, non gap, secondary to renal failure. 4. Anemia, rule out iron deficiency. No evidence of active bleeding. 5. Acute myocardial infarction, possible acute VA, being followed by Cardiology, maintained on IV heparin. PLAN: Change Lasix to 40 mg IV q.8 hours. Repeat labs in a.m. Check ultrasound of the kidneys, check postvoid bladder scan. May continue with the SHAHENE inhibitors for now. Thank you for this consultation. Will continue to follow the patient with you during her hospitalization. MMODL / IJN: [id number] /
--- NOTE | 2020-01-06 15:40 | ECHOF ---
Referral Reason:limited assess lvf MEASUREMENTS -------- HEIGHT: 160.0 cm WEIGHT: 78.0 kg BP: 100/43 IVSd: 1.5 cm (0.6 - 1.1) LVIDd: 3.7 cm (3.9 - 5.3) LVPWd: 1.3 cm (0.6 - 1.1) IVSs: 1.7 cm LVIDs: 2.6 cm LVPWs: 2.0 cm %FS: 27.33 % EDV(Teich): 115.98 ml EF(Teich): 52.95 % ESV(Teich): 54.56 ml IVSd: 1.99 cm (0.6 - 1.1) IVSs: 2.36 cm LVIDd: 4.96 cm (3.9 - 5.3) LVIDs: 3.60 cm LVPWd: 1.64 cm (0.6 - 1.1) LVPWs: 1.76 cm SV(Teich): 61.41 ml FINDINGS -------- Sinus rhythm. Limited Study Pt unable to turn due to hip fx. Overall left ventricular systolic function is mild-moderately impaired with, an EF between 40 - 45 %. 5.0mg of Lumason was utilized for enhancement of images CONCLUSIONS -------- 1. Sinus rhythm. 2. Limited Study 3. Pt unable to turn due to hip fx. 4. Overall left ventricular systolic function is mild-moderately impaired with, an EF between 40 - 45 %. 5. 5.0mg of Lumason was utilized for enhancement of images PLANER OFFBEARER: Bea Mccray [facility]
[2020-01-06 17:43] LABS: Glucose,Whole Blood 115 mg/dL (75-99)
[2020-01-06] MEDS: FUROSEMIDE 10 MG/ML 4 ML VIAL IV SCH ×2 (18:07→23:36)
[2020-01-06 20:47] LABS: Glucose,Whole Blood 137 mg/dL (75-99)
[2020-01-06] MEDS: ATORVASTATIN 40 MG TAB PO SCH (20:58)
[2020-01-06] MEDS ORDERED: FUROSEMIDE 10 MG/ML 4 ML VIAL IV SCH (21:00)
[2020-01-06] MEDS ORDERED: ACETAMINOPHEN TAB 325 MG TAB PO PRN (21:01)
--- NOTE | 2020-01-06 21:38 | P.PN ---
Progress Note - Text Progress Note Date: 01/06/20 Chief Complaint: Unable to get up Hospital course: This is a pleasant 79-year-old patient of Dr. Hays was chronic stable medical conditions include diabetes mellitus type 2, hypertension, hypothyroid, polio affecting the right leg, chronic gait dysfunction uses a cane primary osteoarthritis CHF EF 40-45%.. Also has venous stasis ulcer on the right lower extremity. Patient was at home sitting on the toilet chair. Normally uses a cane to get about. Just felt very weak and unable to get up from the same. No swelling of the legs. No dizziness no lightheadedness. Had been tolerating his diet. No fever no chills. Patient had to call her sister and her son to help her up. Patient's house and one level normally does not have to do stairs. No chest pain no palpitation. Admitted with CHF exacerbation, hypoglycemia. Possible acute non-Q-wave CA. He was placed on IV Lasix drip overnight. Today-feeling better. Did tolerate some diet. He did work 50% of for breakfast and lunch. On IV Lasix. Review of systems: Was done for constitutional, cardiovascular, GI, pulmonary. relevant finding as above Active Medications Allopurinol (Zyloprim) 100 mg PO DAILY [facility] Last Admin: 01/06/20 09:12 Dose: 100 mg Documented by: Aspirin (Aspirin) 81 mg PO DAILY [facility] Last Admin: 01/06/20 09:12 Dose: 81 mg Documented by: Atorvastatin Calcium (Lipitor) 40 mg PO HS [facility] Last Admin: 01/06/20 20:58 Dose: 40 mg Documented by: Carvedilol (Coreg) 6.25 mg PO BID-W/MEALS [facility] Last Admin: 01/06/20 18:07 Dose: 6.25 mg Documented by: Furosemide (Lasix) 40 mg IV Q8HR [facility] Last Admin: 01/06/20 18:07 Dose: 40 mg Documented by: Heparin Sodium (Porcine) (Heparin) 0 unit IV PER PROTOCOL PRN; Protocol PRN Reason: Low PTT Last Admin: 01/05/20 18:27 Dose: 4,000 unit Documented by: Heparin Sodium/Sodium Chloride (25,000 unit/ Sodium Chloride) 250 mls @ 9.362 mls/hr IV .Q24H [facility]; Protocol Last Titration: 01/06/20 09:53 Dose: 6 units/kg/hr, 4.681 mls/hr Documented by: Insulin Aspart (Novolog) 0 unit SQ ACHS [facility]; Protocol Last Admin: 01/06/20 20:57 Dose: Not Given Documented by: Isosorbide Mononitrate (Imdur) 60 mg PO DAILY [facility] Last Admin: 01/06/20 09:11 Dose: 60 mg Documented by: Levothyroxine Sodium (Synthroid) 125 mcg PO 0630 [facility] Last Admin: 01/06/20 06:28 Dose: 125 mcg Documented by: Lisinopril (Zestril) 5 mg PO DAILY [facility] Last Admin: 01/06/20 09:11 Dose: 5 mg Documented by: Naloxone HCl (Narcan) 0.2 mg IV Q2M PRN PRN Reason: Opioid Reversal Physical examination: VITAL SIGNS: Afebrile, 56, 18, 1 , 95% on room air GENERAL: Sitting up, awake EYES: Pupils equal. Conjunctiva normal. HEENT: External appearance of nose and ears normal, oral cavity grossly normal. NECK: JVD possibly raise; masses not palpable. HEART: First and second heart sounds are normal; some edema present. LUNGS: Respiratory rate increased, decreased breath sounds. ABDOMEN: Soft, nontender, liver spleen not palpable, no masses palpable. PSYCH: Alert and oriented x3; mood and affect normal EXTREMITY: Right leg is short, dressing over the venous ulcer, blister around the left ankle. INVESTIGATIONS, reviewed in the clinical context: White count 4.7 hemoglobin 9.8 platelets 77 potassium 5.3 bun 75. 1.62 Accu- Cheks 111, 115 Troponin I-1.5, 5.6, 6.9 Previous tracing White count 7.3 hemoglobin 10.2 platelets 84 potassium 5.3 bicarb 18 bun 74 creatinine 1.46 glucose 63 2-D echo from 11/17/2019-EF 40-45% EKG tracing personally reviewed by me-left bundle-branch block Chest x-ray film personally reviewed by me-pulmonary edema Assessment: -Acute metabolic encephalopathy possibly from hypoglycemia blood sugar in the ER was 63, POA -Acute on chronic congestive heart failure from systolic dysfunction EF 40-45%, POA, slow to improve -Acute non-Q-wave myocardial infarction- -Chronic kidney disease stage III likely from diabetic nephropathy and hypertensive nephrosclerosis -Chronic right lower extremity wound from ruptured blister from venous insufficiency. Left lower extremity fluid blister -Diabetes mellitus type 2, uncontrolled with hypoglycemia -Essential hypertension -Hypothyroid -Polio affecting the right 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 -Primary osteoarthritis especially of the hips -Metabolic acidosis from kidney disease Plan: Patient's wish to IV bolus 40 mg every 8. IV heparin. Patient's had no chest pain. Follow I's closely. We'll add sodium bicarbonate. Keep off oral hypoglycemics
[2020-01-06] MEDS: DICLOFENAC SODIUM GEL 100 GM TUBE TOPICAL SCH (23:31)
[2020-01-07 06:30] LABS: Glucose,Whole Blood 122 mg/dL (75-99)
[2020-01-07] MEDS: INSULIN ASPART (NovoLOG) 100 UNIT/ML VIAL SQ SCH ×4 (06:31→21:00)
[2020-01-07] MEDS: LEVOTHYROXINE 125 MCG TAB PO SCH (06:35)
[2020-01-07] MEDS: CARVEDILOL 6.25 MG TAB PO SCH ×2 (06:35→17:38)
[2020-01-07 07:08] LABS: Anisocytosis Slight; Basophils % (A) 0 %; Eosinophils # (A) 0.1 k/uL (0-0.7); Eosinophils % (A) 1 %; HCT 28.7 % (34.0-46.0); HGB 9.4 gm/dL (11.4-16.0); Lymphocytes # (A) 0.6 k/uL (1.0-4.8); Lymphocytes % (A) 9 %; MCH 31.2 pg (25.0-35.0); MCHC 32.8 g/dL (31.0-37.0); MCV 95.3 fL (80.0-100.0); Macrocytosis Slight; Mean Platelet Volume 8.7; Monocytes # (A) 0.4 k/uL (0-1.0); Monocytes % (A) 6 %; Neutrophils # (A) 4.8 k/uL (1.3-7.7); Neutrophils % (A) 80 %; RBC 3.02 m/uL (3.80-5.40)
[2020-01-07 07:09] LABS: Platelet Count 83 k/uL (150-450)
[2020-01-07 08:42] LABS: Calcium 9.8 mg/dL (8.4-10.2); Potassium 4.8 mmol/L (3.5-5.1)
[2020-01-07] MEDS: ISOSORBIDE MONONITRATE ER 60 MG TAB.ER.24H PO SCH (09:32)
[2020-01-07] MEDS: LISINOPRIL 5 MG TAB PO SCH (09:32)
[2020-01-07] MEDS: ALLOPURINOL 100 MG TAB PO SCH (09:32)
[2020-01-07] MEDS: ASPIRIN 81 MG PO SCH (09:32)
[2020-01-07] MEDS: DICLOFENAC SODIUM GEL 100 GM TUBE TOPICAL SCH ×3 (10:03→21:03)
--- NOTE | 2020-01-07 11:24 | US ---
EXAMINATION TYPE: US kidneys/renal and bladder DATE OF EXAM: 01/07/2020 COMPARISON: NONE CLINICAL HISTORY: decreasing kidney function. EXAM MEASUREMENTS: Right Kidney: 8.0 x 3.9 x 3.8 cm Left Kidney: 10.0 x 3.8 x 5.2 cm Post Void Residual Volume: mL Right Kidney: measures small, no hydronephrosis Left Kidney: inferior pole slightly obscured by bowel gas, no hydronephrosis Bladder: wnl Kidneys show normal cortical medullary differentiation, no evident bladder mass or pathologic calcifi cation. Bladder is anechoic. Incidental gallstones. IMPRESSION: Atrophic right kidney. No hydronephrosis.
[2020-01-07] MEDS: FUROSEMIDE 10 MG/ML 4 ML VIAL IV SCH (11:32)
--- NOTE | 2020-01-07 12:07 | PN ---
PROGRESS NOTE Patient is seen for followup for acute kidney injury. She was admitted to the hospital with severe volume overload and lower extremity edema. The patient was initially maintained on Lasix drip which was then changed to IV push Lasix. Her edema has improved significantly. Overall, she states she is feeling better. Her creatinine however has gone up from 1.4 to 2.1 today. She has had good urine output. A 24 hour output of about 2 L. PHYSICAL EXAMINATION: On examination today, blood pressure was 149/70, heart rate of 77 per minute. Patient is afebrile. EXAMINATION OF THE HEART: S1 and S2. EXAMINATION OF THE LUNGS: Decreased breath sounds at the bases. ABDOMEN: Soft, nontender. Examination of lower extremities shows much improved edema. ELECTRICAL INSTRUMENTATION TECHNICIAN exam grossly intact. LABS: Labs show sodium of 139, potassium 4.8, chloride 103, CO2 of 24, BUN 80, creatinine 2.17, hemoglobin 9.4 g/dL. ASSESSMENT: 1. Acute kidney injury, cardiorenal, and associated with recent diuresis currently maintained on IV Lasix q.8 hours. I will decrease to q.12 hours. However, we will give her just 1 dose today. The patient has had good urine output. Her weight however does not appear to have significantly changed. 2. Volume overload, currently improved. 3. Cardiomyopathy, ejection fraction noted to be 40% to 45% on echocardiogram done yesterday. 4. Mild hyperkalemia associated with renal failure, improved with ongoing diuresis. 5. Acute myocardial infarction being followed by Cardiology, maintained on IV heparin. 6. Mild metabolic acidosis, non gap secondary to renal failure, now improved. PLAN: Decrease IV Lasix. Repeat labs in a.m. MMODL / IJN: [id number] /
[2020-01-07 12:20] LABS: Glucose,Whole Blood 200 mg/dL (75-99)
--- NOTE | 2020-01-07 13:28 | XR ---
Left knee HISTORY: Left knee pain and swelling 3 views the left knee There is soft tissue swelling present. Bone mineralization is reduced. Vascular calcifications are pr esent. There is marginal spurring, tricompartmental joint space loss. Alignment is maintained. Suprap atellar increased density is present. Ossific density superimposed over the anterior aspect of the rhianna int on the lateral view. IMPRESSION: Osteoarthritis and osteopenia. Joint effusion. Possible loose body.
[2020-01-07] MEDS ORDERED: FUROSEMIDE 10 MG/ML 4 ML VIAL IV ONE (16:00)
--- NOTE | 2020-01-07 16:00 | P.PN ---
Subjective Progress Note Date: 01/07/20 Pleasant 79-year-old female who follows with Dr. VC Garcia in the office. She has a past medical history significant for hypertension, diabetes, hyperlipidemia, most recent hospitalization was in November with congestive heart failure. Patient also has history of hypothyroidism, polio, ulceration of the right lower extremity. Patient was brought to the hospital on this occasion with extreme weakness. According to the patient, she was sitting on the toilet and states that she could not stand up. According to her she's been feeling quite well at home with no symptoms of shortness of breath, no chest discomfort. She just was so weak she could not stand, her legs would not hold her her sister and another family member tried to lift her but states that she was just weight. Chest x-ray shows slightly exaggerated pulmonary vasculature with low lung volumes, trace pleural effusions and enlarged cardiomediastinal silhouette. Congestive heart failure suggested EKG shows a normal sinus rhythm with a left bundle-branch block pattern, first-degree AV block. Blood pressure 152/62 on arrival, heart rate in the 80s, 96% on room air. White blood cell count 4.7, hemoglobin 9.8, platelet count 77. Sodium 140, potassium 5.3, BUN 75, creatinine 1.6. Magnesium 2.2. AST 62 ALT 44, CK 273. BNP level 1630. Troponin 1.5, 5.6, 6.9. At the time of my examination this morning, patient is resting comfortably in bed, family at bedside. She denies any chest pain at present or having any chest pain or discomfort prior to coming to the hospital. 01/07/2020 Patient seen and examined this morning, feels well overall. Repeat echo showed an ejection fraction of 40-45% which was similar to the recent echo that the patient had performed. I did have a discussion with the patient and her daughter and son at bedside, she likely did incur a non-Q-wave myocardial infarction and we will continue maximal medical therapy at this time. Objective - Vital Signs Vital signs: Vital Signs Temp 97.3 F L 01/07/20 12:10 Pulse 55 L 01/07/20 12:10 Resp 18 01/07/20 12:10 BP 106/58 01/07/20 12:10 Pulse Ox 96 01/07/20 12:10 Intake & Output 01/06/20 01/07/20 01/07/20 18:59 06:59 18:59 Intake Total 391.811 120 Output Total 1000 1000 600 Balance -608.189 -1000 -480 Weight 78.018 kg Intake: Intake, IV Titration 151.811 Amount Furosemide 100 mg In 95.167 Sodium Chloride 0.9% 90 ml @ 10 MG/HR 10 mls/hr IV .Q10H [facility] Rx#: [id number] Heparin Sod,Pork in 0.45% 56.644 NaCl 25,000 unit In 0.45 % NaCl 1 250ml.bag @ 12 UNITS/KG/HR 9.362 mls/hr IV .Q24H [facility] Rx#: [id number] Oral 240 120 Output: Urine 1000 1000 600 - Exam CONSTITUTIONAL: No apparent distress. HEENT: Head is normocephalic. Pupils are equal, round. Sclerae anicteric. Mucous membranes of the mouth are moist. Mildly elevated JVP. No carotid bruit. CHEST EXAMINATION: Lungs are clear to auscultation anteriorly with diminished air entry to the bases bilaterally posteriorly. No chest wall tenderness is noted on palpation or with deep breathing. HEART EXAMINATION: Regular rate and rhythm. S1, S2 heard. No murmurs, gallops or rub. ABDOMEN: Soft, nontender. Positive bowel sounds. EXTREMITIES: 2+ peripheral pulses, trace to 1+ lower extremity edema, there is a dressing in place to the right lower extremity where patient has been seeing Dr. Henson for an infection, she has a large blistered area of the left lower extremity. NEUROLOGIC EXAMINATION: Patient is awake, alert and oriented x3. - Labs CBC & Chem 7: 01/07/20 06:51 01/07/20 06:51 Labs: Abnormal Lab Results - Last 24 Hours (Table) 01/06/20 01/06/20 01/06/20 Range/Units 16:02 17:17 20:46 RBC (3.80-5.40) m/uL Hgb (11.4-16.0) gm/dL Hct (34.0-46.0) % RDW (11.5-15.5) % Plt Count (150-450) k/uL Lymphocytes # (1.0-4.8) k/uL APTT 59.3 H (22.0-30.0) sec BUN (7-17) mg/dL Creatinine (0.52-1.04) mg/dL Glucose (74-99) mg/dL POC Glucose (mg/dL) 115 H 137 H (75-99) mg/dL 01/07/20 01/07/20 01/07/20 Range/Units 06:29 06:51 06:51 RBC 3.02 L (3.80-5.40) m/uL Hgb 9.4 L (11.4-16.0) gm/dL Hct 28.7 L (34.0-46.0) % RDW 17.0 H (11.5-15.5) % Plt Count 83 L (150-450) k/uL Lymphocytes # 0.6 L (1.0-4.8) k/uL APTT 50.9 H (22.0-30.0) sec BUN (7-17) mg/dL Creatinine (0.52-1.04) mg/dL Glucose (74-99) mg/dL POC Glucose (mg/dL) 122 H (75-99) mg/dL 01/07/20 01/07/20 Range/Units 06:51 12:00 RBC (3.80-5.40) m/uL Hgb (11.4-16.0) gm/dL Hct (34.0-46.0) % RDW (11.5-15.5) % Plt Count (150-450) k/uL Lymphocytes # (1.0-4.8) k/uL APTT (22.0-30.0) sec BUN 80 H (7-17) mg/dL Creatinine 2.17 H (0.52-1.04) mg/dL Glucose 119 H (74-99) mg/dL POC Glucose (mg/dL) 200 H (75-99) mg/dL Assessment and Plan Plan: Assessment and plan #1 lower extremity weakness #2 troponin abnormality, possible non-Q-wave myocardial infarction #3 hypertension #4 diabetes #5 systolic congestive heart failure acute on chronic #6 renal insufficiency acute on chronic Plan We will continue current dose of IV Lasix for 24 hours. Continue baby aspirin, Coreg, Lipitor, lisinopril, and Imdur. Discontinue IV heparin from tomorrow. DNP note has been reviewed, I agree with a documented findings and plan of care. Patient was seen and examined.
[2020-01-07 16:43] LABS: Glucose,Whole Blood 115 mg/dL (75-99)
[2020-01-07 20:43] LABS: Glucose,Whole Blood 127 mg/dL (75-99)
[2020-01-07] MEDS: HEPARIN SOD,PORK IN 0.45% NACL 25,000 UNIT in 0.45% NACL 1 250ML.BAG IV SCH (20:58)
[2020-01-07] MEDS: ATORVASTATIN 40 MG TAB PO SCH (21:04)
--- NOTE | 2020-01-07 22:18 | P.PN ---
Progress Note - Text Progress Note Date: 01/07/20 Chief Complaint: Unable to get up Hospital course: This is a pleasant 79-year-old patient of Dr. Hays was chronic stable medical conditions include diabetes mellitus type 2, hypertension, hypothyroid, polio affecting the right leg, chronic gait dysfunction uses a cane primary osteoarthritis CHF EF 40-45%.. Also has venous stasis ulcer on the right lower extremity. Patient was at home sitting on the toilet chair. Normally uses a cane to get about. Just felt very weak and unable to get up from the same. No swelling of the legs. No dizziness no lightheadedness. Had been tolerating his diet. No fever no chills. Patient had to call her sister and her son to help her up. Patient's house and one level normally does not have to do stairs. No chest pain no palpitation. Admitted with CHF exacerbation, hypoglycemia. Possible acute non-Q-wave [place]. He was placed on IV Lasix drip overnight. Today-left knee little bit more painful. Having trouble because of walking/standing up because of the same. Daughter the bedside. Review of systems: Was done for constitutional, cardiovascular, GI, pulmonary. relevant finding as above Active Medications Allopurinol (Zyloprim) 100 mg PO DAILY [facility] Last Admin: 01/07/20 09:32 Dose: 100 mg Documented by: Aspirin (Aspirin) 81 mg PO DAILY [facility] Last Admin: 01/07/20 09:32 Dose: 81 mg Documented by: Atorvastatin Calcium (Lipitor) 40 mg PO HS [facility] Last Admin: 01/07/20 21:04 Dose: 40 mg Documented by: Carvedilol (Coreg) 6.25 mg PO BID-W/MEALS [facility] Last Admin: 01/07/20 17:38 Dose: 6.25 mg Documented by: Diclofenac Sodium (Voltaren Gel) 4 gm TOPICAL QID [facility] Last Admin: 01/07/20 21:03 Dose: 4 gm Documented by: Furosemide (Lasix) 40 mg IV Q12HR [facility] Heparin Sodium (Porcine) (Heparin) 0 unit IV PER PROTOCOL PRN; Protocol PRN Reason: Low PTT Last Admin: 01/05/20 18:27 Dose: 4,000 unit Documented by: Heparin Sodium/Sodium Chloride (25,000 unit/ Sodium Chloride) 250 mls @ 9.362 mls/hr IV .Q24H [facility]; Protocol Last Admin: 01/07/20 20:58 Dose: Not Given Documented by: Insulin Aspart (Novolog) 0 unit SQ ACHS [facility]; Protocol Last Admin: 01/07/20 21:00 Dose: Not Given Documented by: Isosorbide Mononitrate (Imdur) 60 mg PO DAILY [facility] Last Admin: 01/07/20 09:32 Dose: 60 mg Documented by: Levothyroxine Sodium (Synthroid) 125 mcg PO 0630 [facility] Last Admin: 01/07/20 06:35 Dose: 125 mcg Documented by: Lisinopril (Zestril) 5 mg PO DAILY [facility] Last Admin: 01/07/20 09:32 Dose: 5 mg Documented by: Naloxone HCl (Narcan) 0.2 mg IV Q2M PRN PRN Reason: Opioid Reversal Physical examination: VITAL SIGNS: 97.3, 55, 18, 106/58, 96% on room air GENERAL: Sitting up, awake EYES: Pupils equal. Conjunctiva normal. HEENT: External appearance of nose and ears normal, oral cavity grossly normal. NECK: JVD possibly raise; masses not palpable. HEART: First and second heart sounds are normal; some edema present. LUNGS: Respiratory rate increased, decreased breath sounds. ABDOMEN: Soft, nontender, liver spleen not palpable, no masses palpable. PSYCH: Alert and oriented x3; mood and affect normal EXTREMITY: Right leg is short, dressing over the venous ulcer, blister around the left ankle. Some swelling of the left knee INVESTIGATIONS, reviewed in the clinical context: White count 6 hemoglobin 9.4 platelets 83 potassium 4.8 creatinine 2.17 Previous tracing White count 7.3 hemoglobin 10.2 platelets 84 potassium 5.3 bicarb 18 bun 74 crea tinine 1.46 glucose 63 2-D echo from 11/17/2019-EF 40-45% EKG tracing personally reviewed by me-left bundle-branch block Chest x-ray film personally reviewed by me-pulmonary edema Troponin I-1.5, 5.6, 6.9 Assessment: -Acute metabolic encephalopathy possibly from hypoglycemia blood sugar in the ER was 63, POA -Acute on chronic congestive heart failure from systolic dysfunction EF 40-45%, POA, slow to improve -Acute non-Q-wave myocardial infarction- -Chronic kidney disease stage III likely from diabetic nephropathy and hypertensive nephrosclerosis -Chronic right lower extremity wound from ruptured blister from venous insufficiency. Left lower extremity fluid blister -Diabetes mellitus type 2, uncontrolled with hypoglycemia -Essential hypertension -Hypothyroid -Polio affecting the right 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 -Primary osteoarthritis especially of the hips -Metabolic acidosis from kidney disease -Acute left knee osteoarthritis flare up Plan: Continue with IV Lasix.-Dose decreased Overall feeling better. X-ray of the left knee is being ordered along with orthopedic consultation. Care was discussed with the patient daughter. Patient not having any chest pain. IV heparin can be discontinued. Follow with cardiology and nephrology.
[2020-01-08] MEDS: DICLOFENAC SODIUM GEL 100 GM TUBE TOPICAL SCH ×5 (00:16→20:30)
[2020-01-08 05:23] LABS: Glucose,Whole Blood 112 mg/dL (75-99)
[2020-01-08] MEDS: INSULIN ASPART (NovoLOG) 100 UNIT/ML VIAL SQ SCH ×4 (05:37→20:28)
[2020-01-08] MEDS: LEVOTHYROXINE 125 MCG TAB PO SCH (05:43)
[2020-01-08] MEDS: CARVEDILOL 6.25 MG TAB PO SCH ×2 (05:43→17:23)
[2020-01-08 06:35] LABS: Anisocytosis Slight; Basophils % (A) 0 %; Eosinophils # (A) 0.1 k/uL (0-0.7); Eosinophils % (A) 1 %; HCT 27.4 % (34.0-46.0); HGB 8.9 gm/dL (11.4-16.0); Lymphocytes # (A) 0.7 k/uL (1.0-4.8); Lymphocytes % (A) 11 %; MCH 31.3 pg (25.0-35.0); MCHC 32.4 g/dL (31.0-37.0); MCV 96.7 fL (80.0-100.0); Macrocytosis Slight; Mean Platelet Volume 9.2; Monocytes # (A) 0.4 k/uL (0-1.0); Monocytes % (A) 7 %; Neutrophils # (A) 4.7 k/uL (1.3-7.7); Neutrophils % (A) 77 %; RBC 2.83 m/uL (3.80-5.40); RDW 16.8 % (11.5-15.5); WBC 6.1 k/uL (3.8-10.6)
[2020-01-08 06:36] LABS: Platelet Count 74 k/uL (150-450)
[2020-01-08] MEDS: FUROSEMIDE 10 MG/ML 4 ML VIAL IV SCH ×2 (08:58→20:28)
[2020-01-08] MEDS: ISOSORBIDE MONONITRATE ER 60 MG TAB.ER.24H PO SCH (08:58)
[2020-01-08] MEDS: ALLOPURINOL 100 MG TAB PO SCH (08:59)
[2020-01-08] MEDS: ASPIRIN 81 MG PO SCH (08:59)
[2020-01-08] MEDS: LISINOPRIL 5 MG TAB PO SCH (09:03)
[2020-01-08] MEDS: HEPARIN SOD,PORK IN 0.45% NACL 25,000 UNIT in 0.45% NACL 1 250ML.BAG IV SCH (09:04)
[2020-01-08] MEDS: HEPARIN SODIUM,PORCINE 5,000 UNIT/ML 1 ML VIAL IV PRN (09:09)
[2020-01-08] MEDS ORDERED: methylPREDNISolone ACETATE 40 MG/ML 1 ML VIAL INTRAARTIC STA (09:28)
[2020-01-08] MEDS ORDERED: LIDOCAINE (PF) 10 MG/ML 2 ML VIAL SQ ONE (09:30)
[2020-01-08] MEDS ORDERED: LIDOCAINE 1% INJ 10MG/ML (20 ML MDV) SQ ONE (09:45)
--- NOTE | 2020-01-08 09:56 | P.CNOR ---
History of Present Illness - [facility] Consult date: 01/08/20 Consult reason: joint pain History of present illness: Patient is an 79-year-old female who was recently admitted to [facility] for her hospital for multiple medical comorbidities and it was determined she had a non-Q-wave myocardial infarction. She's been followed by multiple medical specialties at this time, she has multiple medical problems. Since the admission she has complained of left knee pain. She has a known history of polio that affected her right lower extremity, so she relies mostly on her left. She also has known history of bilateral hip osteoarthritis. She is known patient to Dr. Monroe who has seen her for a few different orthopedic issues. She states that there is slight improvement in the knee. They've been utilizing Voltaren gel on the knee. X-rays were done yesterday k [facility], negative for any acute fractures or dislocations. Tricompartment osteoarthritis with joint effusion present. Patient does live alone, sounds like she'll be doing a stent in subacute rehab. Discuss with her today the possibility of a joint aspiration with steroid injection to help improve her symptoms. Review of Systems Constitutional: Reports as per HPI Past Medical History Past Medical History: Diabetes Mellitus, Hypertension, Osteoarthritis (OA), Thyroid Disorder, Vascular Disorder Additional Past Medical History / Comment(s): Pt recently admitted to [facility] on 11/14/19 with R lower extremity stasis ulcer/wound/cellulitis, abnormal renal function, CHF, hyperkalemia. Other hx: POLIO AT AGE 3 with R leg alittle shorter/weaker and smaller, NIDDM, hypothyroid, anemia, gout bilateral great toes, L hip pain at times d/t OA, occasional lower extremity edema mostly involving R leg History of Any Multi-Drug Resistant Organisms: None Reported Past Surgical History: No Surgical Hx Reported Additional Past Surgical History / Comment(s): RT/LT CATARACT removal with lens implants, I&D L middle finger/abscess. Past Anesthesia/Blood Transfusion Reactions: No Reported Reaction Additional Past Anesthesia/Blood Transfusion Reaction / Comm: NEVER HAS HAD GE NERAL ANESTHESIA Past Psychological History: No Psychological Hx Reported Smoking Status: Former smoker - Past Family History Father Family Medical History: Coronary Artery Disease (CAD), Myocardial Infarction (DE) Additional Family Medical History / Comment(s): Father at the age of 63 yrs from a DE. He had alot of family members with CAD. Mother Family Medical History: No Reported History Additional Family Medical History / Comment(s): Mother lived to be 90.5 yrs old. Medications and Allergies Home Medications Medication Instructions Recorded Confirmed Type Aspirin 81 mg PO DAILY 06/25/15 01/05/20 History Fish Oil/Dha/Epa [Fish Oil 1,200 1 cap PO DAILY 06/25/15 01/05/20 History mg Fish Oil] Levothyroxine Sodium [Synthroid] 125 mcg PO DAILY 06/25/15 01/05/20 History glipiZIDE XL [Glucotrol XL] 5 mg PO AC-BRKFST 06/25/15 01/05/20 History Cholecalciferol [Vitamin D3 (25 1,000 unit PO DAILY 06/23/16 01/05/20 History Mcg = 1000 Iu)] Allopurinol [Zyloprim] 100 mg PO DAILY 11/14/19 01/05/20 History Lisinopril [Prinivil] 5 mg PO DAILY #0 11/18/19 01/05/20 Rx Apixaban [Eliquis] 2.5 mg PO BID #60 tab 12/04/19 01/05/20 Rx Carvedilol [Coreg] 6.25 mg PO BID-W/MEALS #60 tab 12/04/19 01/05/20 Rx Isosorbide Mononitrate ER [Imdur] 60 mg PO DAILY #60 tab.er.24h 12/04/19 01/05/20 Rx Atorvastatin [Lipitor] 40 mg PO DAILY 01/05/20 01/05/20 History Allergies Allergy/AdvReac Type Severity Reaction Status Date / Time No Known Allergies Allergy Verified 01/05/20 17:11 Physical Examination Left lower extremity: No obvious open lesions or sores surrounding the knee No erythema present, obvious effusion present around the knee Logroll maneuver of the extremity reproduces no groin pain Soft tissue blister noted over the distal tibia, this fluid-filled, there is no skin breakdown erythema surrounding that Action passive range of motion are limited, she notes tightness in the knee Tender with palpation over the medial and lateral joint line with palpation Calf is soft, no tenderness with palpation Distal neurovascular exam is intact Results - Labs Labs: Abnormal Lab Results - Last 24 Hours (Table) 01/07/20 01/07/20 01/07/20 Range/Units 12:00 16:40 20:42 RBC (3.80-5.40) m/uL Hgb (11.4-16.0) gm/dL Hct (34.0-46.0) % RDW (11.5-15.5) % Plt Count (150-450) k/uL Lymphocytes # (1.0-4.8) k/uL APTT (22.0-30.0) sec POC Glucose (mg/dL) 200 H 115 H 127 H (75-99) mg/dL 01/08/20 01/08/20 01/08/20 Range/Units 05:20 05:47 07:49 RBC 2.83 L (3.80-5.40) m/uL Hgb 8.9 L (11.4-16.0) gm/dL Hct 27.4 L (34.0-46.0) % RDW 16.8 H (11.5-15.5) % Plt Count 74 L (150-450) k/uL Lymphocytes # 0.7 L (1.0-4.8) k/uL APTT 42.7 H (22.0-30.0) sec POC Glucose (mg/dL) 112 H (75-99) mg/dL H & H 01/05/20 01/06/20 01/07/20 Range/Units 14:40 03:26 06:51 Hgb 10.2 L 9.8 L 9.4 L (11.4-16.0) gm/dL Hct 30.7 L 28.8 L 28.7 L (34.0-46.0) % 01/08/20 Range/Units 05:47 Hgb 8.9 L (11.4-16.0) gm/dL Hct 27.4 L (34.0-46.0) % Coagulation 01/05/20 Range/Units 14:40 INR 1.1 (<1.2) Result Diagrams: 01/08/20 05:47 01/07/20 06:51 - Diagnostic results Hip x-ray: report reviewed, image reviewed Assessment and Plan Assessment: Left knee effusion Left knee osteoarthritis with acute exacerbation Multiple medical comorbidities Plan: I was able to discuss the case with physical exam findings and imaging studies attending Dr. Monroe. No orthopedic surgical intervention recommended at this time I did discuss with the patient possibility of doing a aspiration with intra- articular steroid injection to provide symptomatically. Patient agrees with treatment and would like to proceed Please see procedure note for further detail Recommend physical therapy evaluation weight-bear as tolerated with walker Recommended subacute rehab, consider permanent placement with patient's multiple medical comorbidities will be available for any further questions regarding this patient Time with Patient: Less than 30
--- NOTE | 2020-01-08 12:16 | P.PCN ---
Date of Procedure: 01/08/20 Preoperative Diagnosis: Left knee osteoarthritis, left knee effusion Postoperative Diagnosis: Same Procedure(s) Performed: Left knee aspiration with intra-articular cortisone injection Implants: None Anesthesia: local Surgeon: Shaka Rivera Estimated Blood Loss (ml): 2 Pathology: none sent Condition: stable Disposition: no change Indications for Procedure: Left knee pain and swelling Description of Procedure: Discussed the procedure with the patient today at bedside, she is in good understanding would like to proceed. Consent forms were obtained. Patient was in supine position, the knee was in full extension. The knee was then prepped with 1 ChloraPrep swab and to alcohol swabs. A 20-gauge needle was first used to inject 5 mL of 1% plain lidocaine be at the suprapatellar approach. I was only able to aspirate about 2 mL of bloody serosanguineous fluid. Attempt was then made to inject 40 mg of Depo-Medrol and 4 additional cc of 1% plain lidocaine, there was notable resistance when attempting to push in the medication. I then removed the needle. The knee was again prepped with 1 ChloraPrep swab and one alcohol swabs, 20- gauge needle was placed via the suprapatellar approach. I then injected 40 mg o f Depo-Medrol and 4 mL of 1% lidocaine, there was no resistance. Bandage was then applied. Patient tolerated the procedure well.
[2020-01-08 12:27] LABS: Glucose,Whole Blood 126 mg/dL (75-99)
[2020-01-08] MEDS: APIXABAN 2.5 MG TABLET PO SCH ×2 (12:28→20:28)
--- NOTE | 2020-01-08 14:04 | P.PN ---
Subjective Progress Note Date: 01/08/20 Pleasant 79-year-old female who follows with Dr. VC Garcia in the office. She has a past medical history significant for hypertension, diabetes, hyperlipidemia, most recent hospitalization was in November with congestive heart failure. Patient also has history of hypothyroidism, polio, ulceration of the right lower extremity. Patient was brought to the hospital on this occasion with extreme weakness. According to the patient, she was sitting on the toilet and states that she could not stand up. According to her she's been feeling quite well at home with no symptoms of shortness of breath, no chest discomfort. She just was so weak she could not stand, her legs would not hold her her sister and another family member tried to lift her but states that she was just weight. Chest x-ray shows slightly exaggerated pulmonary vasculature with low lung volumes, trace pleural effusions and enlarged cardiomediastinal silhouette. Congestive heart failure suggested EKG shows a normal sinus rhythm with a left bundle-branch block pattern, first-degree AV block. Blood pressure 152/62 on arrival, heart rate in the 80s, 96% on room air. White blood cell count 4.7, hemoglobin 9.8, platelet count 77. Sodium 140, potassium 5.3, BUN 75, creatinine 1.6. Magnesium 2.2. AST 62 ALT 44, CK 273. BNP level 1630. Troponin 1.5, 5.6, 6.9. At the time of my examination this morning, patient is resting comfortably in bed, family at bedside. She denies any chest pain at present or having any chest pain or discomfort prior to coming to the hospital. 01/07/2020 Patient seen and examined this morning, feels well overall. Repeat echo showed an ejection fraction of 40-45% which was similar to the recent echo that the patient had performed. I did have a discussion with the patient and her daughter and son at bedside, she likely did incur a non-Q-wave myocardial infarction and we will continue maximal medical therapy at this time. 01/08/2020 patient was seen and examined this morning. Feeling well overall. We will discontinue the IV heparin and resume her Eliquis today. Diuretics as per nephrology. Objective - Vital Signs Vital signs: Vital Signs Temp 97.7 F 01/08/20 08:20 Pulse 68 01/08/20 08:20 Resp 18 01/08/20 08:20 BP 123/58 01/08/20 08:20 Pulse Ox 96 01/08/20 08:20 Intake & Output 01/07/20 01/08/20 01/08/20 18:59 06:59 18:59 Intake Total 480 120 460.865 Output Total 600 Balance -120 120 460.865 Intake: Intake, IV Titration 220.865 Amount Heparin Sod,Pork in 0.45% 220.865 NaCl 25,000 unit In 0.45 % NaCl 1 250ml.bag @ 12 UNITS/KG/HR 9.362 mls/hr IV .Q24H [facility] Rx#: [id number] Oral 480 120 240 Output: Urine 600 Other: # Voids 2 1 # Bowel Movements 1 1 - Exam CONSTITUTIONAL: No apparent distress. HEENT: Head is normocephalic. Pupils are equal, round. Sclerae anicteric. Mucous membranes of the mouth are moist. Mildly elevated JVP. No carotid bruit. CHEST EXAMINATION: Lungs are clear to auscultation anteriorly with diminished air entry to the bases bilaterally posteriorly. No chest wall tenderness is noted on palpation or with deep breathing. HEART EXAMINATION: Regular rate and rhythm. S1, S2 heard. No murmurs, gallops or rub. ABDOMEN: Soft, nontender. Positive bowel sounds. EXTREMITIES: 2+ peripheral pulses, trace to 1+ lower extremity edema, there is a dressing in place to the right lower extremity where patient has been seeing Dr. Henson for an infection, she has a large blistered area of the left lower ext remity. NEUROLOGIC EXAMINATION: Patient is awake, alert and oriented x3. - Labs CBC & Chem 7: 01/08/20 05:47 01/07/20 06:51 Labs: Abnormal Lab Results - Last 24 Hours (Table) 01/07/20 01/07/20 01/08/20 Range/Units 16:40 20:42 05:20 RBC (3.80-5.40) m/uL Hgb (11.4-16.0) gm/dL Hct (34.0-46.0) % RDW (11.5-15.5) % Plt Count (150-450) k/uL Lymphocytes # (1.0-4.8) k/uL APTT (22.0-30.0) sec POC Glucose (mg/dL) 115 H 127 H 112 H (75-99) mg/dL 01/08/20 01/08/20 01/08/20 Range/Units 05:47 07:49 12:11 RBC 2.83 L (3.80-5.40) m/uL Hgb 8.9 L (11.4-16.0) gm/dL Hct 27.4 L (34.0-46.0) % RDW 16.8 H (11.5-15.5) % Plt Count 74 L (150-450) k/uL Lymphocytes # 0.7 L (1.0-4.8) k/uL APTT 42.7 H (22.0-30.0) sec POC Glucose (mg/dL) 126 H (75-99) mg/dL Assessment and Plan Plan: Assessment and plan #1 lower extremity weakness #2 troponin abnormality, possible non-Q-wave myocardial infarction #3 hypertension #4 diabetes #5 systolic congestive heart failure acute on chronic #6 renal insufficiency acute on chronic Plan We will discontinue the IV heparin and start the patient back on her Eliquis. Diuretics as per nephrology. We will follow this patient along with you now on an as-needed basis only, please don't hesitate to call with any questions. DNP note has been reviewed, I agree with a documented findings and plan of care. Patient was seen and examined.
[2020-01-08 15:31] LABS: Calcium 9.2 mg/dL (8.4-10.2); Potassium 4.3 mmol/L (3.5-5.1)
[2020-01-08 16:53] LABS: Glucose,Whole Blood 157 mg/dL (75-99)
--- NOTE | 2020-01-08 17:53 | P.PN ---
Progress Note - Text Progress Note Date: 01/08/20 Chief Complaint: Unable to get up Hospital course: This is a pleasant 79-year-old patient of Dr. Hays was chronic stable medical conditions include diabetes mellitus type 2, hypertension, hypothyroid, polio affecting the right leg, chronic gait dysfunction uses a cane primary osteoarthritis CHF EF 40-45%.. Also has venous stasis ulcer on the right lower extremity. Patient was at home sitting on the toilet chair. Normally uses a cane to get about. Just felt very weak and unable to get up from the same. No swelling of the legs. No dizziness no lightheadedness. Had been tolerating his diet. No fever no chills. Patient had to call her sister and her son to help her up. Patient's house and one level normally does not have to do stairs. No chest pain no palpitation. Admitted with CHF exacerbation, hypoglycemia. Possible acute non-Q-wave [place]. He was placed on IV Lasix drip overnight. Today-patient's getting a left knee aspiration and intra-articular cortisone injection today. No other new issues. Stable otherwise. Review of systems: Was done for constitutional, cardiovascular, GI, pulmonary. relevant finding as above Physical examination: VITAL SIGNS: 97.3, 55, 18, 106/58, 96% on room air GENERAL: Sitting up, awake EYES: Pupils equal. Conjunctiva normal. HEENT: External appearance of nose and ears normal, oral cavity grossly normal. NECK: JVD possibly raise; masses not palpable. HEART: First and second heart sounds are normal; some edema present. LUNGS: Respiratory rate increased, decreased breath sounds. ABDOMEN: Soft, nontender, liver spleen not palpable, no masses palpable. PSYCH: Alert and oriented x3; mood and affect normal EXTREMITY: Right leg is short, dressing over the venous ulcer, blister around the left ankle. Some swelling of the left knee INVESTIGATIONS, reviewed in the clinical context: White count 6.1 hemoglobin 8.9 creatinine 2.75 Previous tracing White count 7.3 hemoglobin 10.2 platelets 84 potassium 5.3 bicarb 18 bun 74 creatinine 1.46 glucose 63 2-D echo from 11/17/2019-EF 40-45% EKG tracing personally reviewed by me-left bundle-branch block Chest x-ray film personally reviewed by me-pulmonary edema Troponin I-1.5, 5.6, 6.9 Assessment: -Acute metabolic encephalopathy possibly from hypoglycemia blood sugar in the ER was 63, POA -Acute on chronic congestive heart failure from systolic dysfunction EF 40-45%, POA, better -Acute non-Q-wave myocardial infarction- -Chronic kidney disease stage III likely from diabetic nephropathy and hypertensive nephrosclerosis -Chronic right lower extremity wound from ruptured blister from venous insufficiency. Left lower extremity fluid blister -Diabetes mellitus type 2, uncontrolled with hypoglycemia -Essential hypertension -Hypothyroid -Polio affecting the right 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 -Primary osteoarthritis especially of the hips -Metabolic acidosis from kidney disease -Acute left knee osteoarthritis flare up-aspiration and steroid injection today Plan: Overall doing better. Continue current medication treatment plan. IV heparin discontinued. IV Lasix discontinued. Repeat BMP tomorrow. Hopefully discharge to ECF. Tomorrow
[2020-01-08 20:23] LABS: Glucose,Whole Blood 250 mg/dL (75-99)
[2020-01-08] MEDS: ATORVASTATIN 40 MG TAB PO SCH (20:28)
--- NOTE | 2020-01-08 22:53 | PN ---
PROGRESS NOTE Patient is seen for followup for acute kidney injury. She is maintained on IV Lasix. Her renal function has been slowly worsening. IV Lasix was decreased yesterday. Patient was also on Zestril, which is now discontinued, as blood pressure was on the lower side. Overall volume status has improved, but patient still remains with significant edema. PHYSICAL EXAMINATION: On examination this afternoon, blood pressure was 126/57, heart rate 63 per minute. She is afebrile. EXAMINATION OF THE HEART: S1 and S2. EXAMINATION OF LUNGS: Decreased breath sounds at bases. ABDOMEN: Soft, non-tender. Examination of lower extremities shows edema 2+ bilaterally. Large blister on left leg seems to be less than on admission. LABS: Sodium 139, potassium 4.3, chloride 102, BUN 95, serum creatinine 2.75. ASSESSMENT: 1. Acute kidney injury. Renal function worse over the last 3 days. The Lasix has been decreased. Patient's blood pressure has been low and the SHAHEEN inhibitors are now discontinued, which is appropriate. 2. Cardiomyopathy, ejection fraction 40% to 45%. 3. Volume overload, slowly improving, but patient remains significantly volume- overloaded. 4. Mild hyperkalemia associated acute kidney injury, improved. 5. Mild metabolic acidosis secondary to renal failure, now improved. PLAN: Continue with current dose of IV Lasix. Agree with holding off on the SHAHEEN inhibitors for now. Repeat labs in a.m. No nephrotoxic agents on board. I will also decrease the Coreg in a.m. if blood pressure remains low. MMODL / IJN: [id number] /
[2020-01-09] MEDS: CARVEDILOL 6.25 MG TAB PO SCH (05:50)
[2020-01-09] MEDS: LEVOTHYROXINE 125 MCG TAB PO SCH (05:50)
[2020-01-09] MEDS: INSULIN ASPART (NovoLOG) 100 UNIT/ML VIAL SQ SCH ×2 (05:55→12:15)
[2020-01-09 06:05] LABS: Glucose,Whole Blood 141 mg/dL (75-99)
[2020-01-09 07:03] LABS: Calcium 9.2 mg/dL (8.4-10.2); Potassium 4.4 mmol/L (3.5-5.1)
[2020-01-09] MEDS: ALLOPURINOL 100 MG TAB PO SCH (08:42)
[2020-01-09] MEDS: ISOSORBIDE MONONITRATE ER 60 MG TAB.ER.24H PO SCH (08:42)
[2020-01-09] MEDS: APIXABAN 2.5 MG TABLET PO SCH (08:43)
[2020-01-09] MEDS: DICLOFENAC SODIUM GEL 100 GM TUBE TOPICAL SCH (08:43)
[2020-01-09] MEDS: ASPIRIN 81 MG PO SCH (08:43)
[2020-01-09] MEDS: FUROSEMIDE 10 MG/ML 4 ML VIAL IV SCH (08:44)
[2020-01-09 11:40] LABS: Glucose,Whole Blood 122 mg/dL (75-99)
[2020-01-09 11:41] VITALS: BP 166/62; PULSE 71; RESP 16; TEMP 97.9
--- NOTE | 2020-01-09 12:13 | P.DS ---
Providers Date of admission: 01/05/20 16:20 Expected date of discharge: 01/09/20 Attending physician: Suresh Poon Consults: 01/05/20 16:20 Consult Physician Routine Consulting Provider: Dante Garcia Consult Reason/Comments: CHF Do you want consulting provider notified?: Yes 01/05/20 22:28 Consult Physician Routine Consulting Provider: Marivel Gresham Consult Reason/Comments: Chronic kidney disease Do you want consulting provider notified?: Yes 01/07/20 12:29 Consult Physician Routine Consulting Provider: Matthew Michel Consult Reason/Comments: left knee pain Do you want consulting provider notified?: Yes Primary care physician: Tello Hays [facility] Course: Chief Complaint: Unable to get up Hospital course: This is a pleasant 79-year-old patient of Dr. Hays was chronic stable medical conditions include diabetes mellitus type 2, hypertension, hypothyroid, polio affecting the right leg, chronic gait dysfunction uses a cane primary osteoarthritis CHF EF 40-45%.. Also has venous stasis ulcer on the right lower extremity. Patient was at home sitting on the toilet chair. Normally uses a cane to get about. Just felt very weak and unable to get up from the same. No swelling of the legs. No dizziness no lightheadedness. Had been tolerating his diet. No fever no chills. Patient had to call her sister and her son to help her up. Patient's house and one level normally does not have to do stairs. No chest pain no palpitation. Admitted with CHF exacerbation, hypoglycemia. Possible acute non-Q-wave [place]. He was placed on IV Lasix drip overnight. Also received IV heparin for 48 hours. Patient diuresed well. Patient's BUN/creatinine did go up. Currently at 105 / 2.79. Seen with nephrology. Discussed Dr. Gresham today. Okay to discharge. Patient also received intra-articular injection of the left knee. Pain much improved. Also had it aspirated. Care was discussed the patient and family today. Patient will go to ECF. Discussed with social science analyst. Patient's hypoglycemic medication has been discontinued. Discussion and discharge planning more than 35 minutes Consultation: Dr. Gresham from nephrology Dr. Monroe from orthopedics Dr. Christopher Berry from cardiology Physical examination: VITAL SIGNS: 97.9, 71, 16, 166/62, 98% on room air GENERAL: Sitting up on chair, awake EYES: Pupils equal. Conjunctiva normal. HEENT: External appearance of nose and ears normal, oral cavity grossly normal. NECK: JVD possibly raise; masses not palpable. HEART: First and second heart sounds are normal; some edema present. LUNGS: Respiratory rate increased, decreased breath sounds. ABDOMEN: Soft, nontender, liver spleen not palpable, no masses palpable. PSYCH: Alert and oriented x3; mood and affect normal EXTREMITY: Right leg is short, dressing over the venous ulcer, blister around the left ankle. INVESTIGATIONS, reviewed in the clinical context: White count 6.1 hemoglobin 8.9 creatinine 2.75 Previous tracing White count 7.3 hemoglobin 10.2 platelets 84 potassium 5.3 bicarb 18 bun 74 creatinine 1.46 glucose 63 2-D echo EF 40-45% EKG tracing personally reviewed by me-left bundle-branch block Chest x-ray film personally reviewed by me-pulmonary edema Troponin I-1.5, 5.6, 6.9 Assessment: -Acute metabolic encephalopathy possibly from hypoglycemia blood sugar in the ER was 63, POA -Acute on chronic congestive heart failure from systolic dysfunction EF 40-45%, POA, better -Acute non-Q-wave myocardial infarction-POA -Chronic kidney disease stage III likely from diabetic nephropathy and hypertensive nephrosclerosis -Acute kidney injury, prerenal from diuresis -Chronic right lower extremity wound from ruptured blister from venous insufficiency. Left lower extremity fluid blister -Diabetes mellitus type 2, uncontrolled with hypoglycemia -Essential hypertension -Hypothyroid -Polio affecting the right 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 -Primary osteoarthritis especially of the hips -Metabolic acidosis from kidney disease -Acute left knee osteoarthritis flare up-aspiration and steroid injection today Disposition: [facility] Patient Condition at Discharge: Stable Plan - Discharge Summary New Discharge Prescriptions: New Furosemide [Lasix] 40 mg PO DAILY #1 tablet Continue Aspirin 81 mg PO DAILY Levothyroxine Sodium [Synthroid] 125 mcg PO DAILY Fish Oil/Dha/Epa [Fish Oil 1,200 mg Fish Oil] 1 cap PO DAILY Cholecalciferol [Vitamin D3 (25 Mcg = 1000 Iu)] 1,000 unit PO DAILY Allopurinol [Zyloprim] 100 mg PO DAILY Carvedilol [Coreg] 6.25 mg PO BID-W/MEALS #60 tab Isosorbide Mononitrate ER [Imdur] 60 mg PO DAILY #60 tab.er.24h Apixaban [Eliquis] 2.5 mg PO BID #60 tab Atorvastatin [Lipitor] 40 mg PO DAILY Discontinued glipiZIDE XL [Glucotrol XL] 5 mg PO AC-BRKFST Lisinopril [Prinivil] 5 mg PO DAILY #0 Discharge Medication List Aspirin 81 mg PO DAILY 06/25/15 [History] Fish Oil/Dha/Epa [Fish Oil 1,200 mg Fish Oil] 1 cap PO DAILY 06/25/15 [History] Levothyroxine Sodium [Synthroid] 125 mcg PO DAILY 06/25/15 [History] Cholecalciferol [Vitamin D3 (25 Mcg = 1000 Iu)] 1,000 unit PO DAILY 06/23/16 [History] Allopurinol [Zyloprim] 100 mg PO DAILY 11/14/19 [History] Apixaban [Eliquis] 2.5 mg PO BID #60 tab 12/04/19 [Rx] Carvedilol [Coreg] 6.25 mg PO BID-W/MEALS #60 tab 12/04/19 [Rx] Isosorbide Mononitrate ER [Imdur] 60 mg PO DAILY #60 tab.er.24h 12/04/19 [Rx] Atorvastatin [Lipitor] 40 mg PO DAILY 01/05/20 [History] Furosemide [Lasix] 40 mg PO DAILY #1 tablet 01/09/20 [Rx] Follow up Appointment(s)/Referral(s): cardiology, [Other] - 10 Days Marivel Gresham MD [STAFF PHYSICIAN] - 1 Week Tello Hays DO [Primary Care Provider] - 1-2 days Activity/Diet/Wound Care/Special Instructions: juan carlos HOLDER, CBC-3 days
--- NOTE | 2020-01-09 16:57 | PN ---
PROGRESS NOTE Patient is seen for followup for acute kidney injury. Patient was admitted with significant edema. She has been diuresed. Serum creatinine has progressively increased; however, stable at 2.7 today as well as yesterday. Diuretics have been decreased and patient will be discharged home. Previous creatinine was 1.9 to 1.7 in November, but it had been as low as 1.1 on 12/01/2019. No significant complaints today. Her right knee is feeling better after arthrocentesis and steroid injection. PHYSICAL EXAMINATION: On examination today, blood pressure was 166/62, heart rate 71 per minute. Patient is afebrile. EXAMINATION OF THE HEART: S1 and S2. EXAMINATION OF LUNGS: Bilateral breath sounds are heard. ABDOMEN: Soft, non-tender. Examination of lower extremities shows a large blister, left lower extremity, near the ankle. Edema about 2+ bilaterally, currently improved from admission. MARINE ARCHITECT exam is grossly intact. LABS: Labs show sodium of 138, potassium 4.4, chloride 104, BUN 105, serum creatinine 2.79, calcium 9.2. ASSESSMENT: 1. Acute kidney injury, cardiorenal, currently stable with creatinine staying at 2.7 from yesterday. Lasix has been decreased. Patient is also taken off of the Zestril, and she can be discharged on a small dose of oral diuretics and repeat labs to be done in about 3-4 days post discharge. 2. Right knee pain, now improved, status post arthrocentesis. 3. Cardiomyopathy, ejection fraction 40% to 45%. 4. Volume overload, currently improved. 5. Metabolic acidosis associated with renal failure, now improved. PLAN: Continue to hold off on SHAHEEN inhibitors. Switch to oral diuretics. Patient can be discharged. Repeat labs as outpatient in 3-4 days and follow up in the office in about one week's time. MMODL / IJN: [id number] /
== END 2020-01-09 14:10 | DRG 280 ==
LOC: EC 13:49 → 6NMEDSUR 16:20 → 3SCARD 17:51
PROVIDERS: ADMIT Hospitalist; ATTEND Hospitalist
PROC: 3E0U33Z Introduction of Anti-inflammatory into Joints, Percutaneous Approach (ICD-10-PCS; principal; 2020-01-08)
PROC: 0S9D3ZZ Drainage of Left Knee Joint, Percutaneous Approach (ICD-10-PCS; principal; 2020-01-08)
DX: I13.0 Hypertensive heart and chronic kidney disease with heart failure and stage 1 through stage 4 chronic kidney disease, or unspecified chronic kidney disease (principal); I21.4 Non-ST elevation (NSTEMI) myocardial infarction; G93.41 Metabolic encephalopathy; I50.23 Acute on chronic systolic (congestive) heart failure; N17.9 Acute kidney failure, unspecified; E87.2 Acidosis; M19.90 Unspecified osteoarthritis, unspecified site; E03.9 Hypothyroidism, unspecified; Z96.1 Presence of intraocular lens; E87.5 Hyperkalemia; Z60.2 Problems related to living alone; E11.22 Type 2 diabetes mellitus with diabetic chronic kidney disease; D63.8 Anemia in other chronic diseases classified elsewhere; E11.649 Type 2 diabetes mellitus with hypoglycemia without coma; N18.3 Chronic kidney disease, stage 3 (moderate); I44.7 Left bundle-branch block, unspecified; E78.5 Hyperlipidemia, unspecified; M17.12 Unilateral primary osteoarthritis, left knee; I42.9 Cardiomyopathy, unspecified; I87.2 Venous insufficiency (chronic) (peripheral); M16.0 Bilateral primary osteoarthritis of hip; Z87.891 Personal history of nicotine dependence; I25.2 Old myocardial infarction; Z86.12 Personal history of poliomyelitis; Z98.42 Cataract extraction status, left eye; Z98.41 Cataract extraction status, right eye; Z82.49 Family history of ischemic heart disease and other diseases of the circulatory system; Z79.890 Hormone replacement therapy; Z79.84 Long term (current) use of oral hypoglycemic drugs; Z79.82 Long term (current) use of aspirin; Z79.01 Long term (current) use of anticoagulants; Z79.899 Other long term (current) drug therapy
CPT/HCPCS: 36415; 71046; 76770; 80048; 80053; 81001; 82550; 83605; 83735; 83880; 84484; 85025; 85610; 85730; 93005; 93308; 96374; 96375; 99291